=== PATIENT | female | born 1960 | race Caucasian/White ===

== ENCOUNTER 2018-08-25 18:07 | Emergency (ER) | payer MEDICARE, MEDICAID ==
[~2018-08-25] VITALS: Ht 157.5 cm; Wt 75.0 kg
[~2018-08-25 18:07] MED LIST: ARIP2TAB37 PO; ARIPIPRAZOLE TAB 5MG; BUSP5TAB3 PO; BUSPIRONE 10 MG; Buspirone Hcl 10mg Tab; CLON-528 PO; CLONAZEPAM TAB 0.5MG; DIVA125T2 PO; DIVALPROEX 500 MG; DULOXETINE 60 MG; DULOXETINE CAP 30MG; LEVE10002 PO; LEVE250T PO; LEVOTHYROXINE SODIUM 25 MCG; MIRT45TA83 PO; MIRTAZAPINE 15 MG; SERT50TA PO; SERTRALINE HCL 100 MG; THIA100T70 PO
[2018-08-25 19:19] VITALS: BP 119/60
== END 2018-08-25 19:33 | disposition home or self-care (01) ==
LOC: ER 18:07
DX: G40.909 Epilepsy, unspecified, not intractable, without status epilepticus (principal); Z88.8 Allergy status to other drugs, medicaments and biological substances; Z79.899 Other long term (current) drug therapy
CPT/HCPCS: 99283

== ENCOUNTER 2018-09-14 00:24 | Emergency (ER) | payer MEDICARE, MEDICAID ==
[~2018-09-14] VITALS: Ht 157.5 cm; Wt 65.0 kg
[2018-09-14] MEDS ORDERED: magnesium 2GM in 50ml NS 50 ML IV ONE (00:55)
[2018-09-14] MEDS ORDERED: normal saline 1000ML IV soln IVB ONE (00:55)
[2018-09-14 01:54] LABS: BASOPHILS # (AUTO) 0.1 X10'3 (0-0.2); BASOPHILS % (AUTO) 1.3 % (0-1); EOSINOPHILS % (AUTO) 0.5 % (0-6); HEMATOCRIT 41.8 % (35.0-45.0); LYMPHOCYTES # (AUTO) 1.6 X10'3 (1.1-4.8); LYMPHOCYTES % (AUTO) 22.7 % (21-51); MEAN CORPUSCULAR HEMOGLOBIN 32.6 PG (27.0-31.0); MEAN CORPUSCULAR HGB CONC 33.5 % (33.0-36.5); MEAN CORPUSCULAR VOLUME 97.3 FL (78-98); MEAN PLATELET VOLUME 8.3 FL (7.4-10.4); MONOCYTES # (AUTO) 0.9 X10'3 (0-0.9); MONOCYTES % (AUTO) 12.6 % (2-12); NEUTROPHILS # (AUTO) 4.2 X10'3 (1.8-7.7); NEUTROPHILS % (AUTO) 62.9 % (42-75); PLATELET COUNT 187 X10'3 (140-440); RED CELL DISTRIBUTION WIDTH 12.5 % (11.5-14.5); WHITE BLOOD COUNT 6.8 X10'3 (4.5-11.0)
[2018-09-14 02:02] LABS: INR 1.1 INR
[2018-09-14 02:03] LABS: PARTIAL THROMBOPLASTIN TIME 29 SECONDS (22-32)
[2018-09-14 02:05] LABS: ALANINE AMINOTRANSFERASE 22 U/L (12-78); ALBUMIN 3.3 G/DL (3.4-5.0); ALBUMIN/GLOBULIN RATIO 0.9 (1.1-1.5); ALKALINE PHOSPHATASE 67 IU/L (46-116); ANION GAP 7 (8-16); ASPARTATE AMINO TRANSFERASE 14 U/L (10-37); BILIRUBIN,TOTAL 0.2 MG/DL (0.1-1.0); BLOOD UREA NITROGEN 16 MG/DL (7-18); BUN/CREATININE RATIO 24.6 (6.6-38.0); CALCIUM 9.1 MG/DL (8.5-10.1); CHLORIDE 98 MMOL/L (99-107); CREATININE 0.65 MG/DL (0.40-0.90); GLUCOSE 95 MG/DL (70-104); POTASSIUM 4.4 MMOL/L (3.5-5.1); SODIUM 134 MMOL/L (135-145); TOTAL CARBON DIOXIDE 29.1 MMOL/L (24-32); TOTAL PROTEIN 6.9 G/DL (6.4-8.2); eGFR > 90 ML/MIN
[2018-09-14 02:13] LABS: MAGNESIUM 1.8 MG/DL (1.5-2.4)
[2018-09-14 02:16] LABS: CLARITY,URINE CLEAR (Clear); GLUCOSE, URINE NEGATIVE (Neg); KETONES,URINE NEGATIVE (Neg); LEUKOCYTE ESTERASE ,URINE NEGATIVE (Neg); NITRITES, URINE NEGATIVE (Neg); OCCULT BLOOD,URINE NEGATIVE (Neg); PROTEIN,URINE NEGATIVE (Neg); UROBILINOGEN,URINE 0.2 E.U/dL (0.2-1.0)
[2018-09-14 02:17] LABS: VALPROATE 55 UG/ML (50-100)
[2018-09-14 02:18] LABS: ETHANOL < 0.010 GM/DL (0.0-0.010)
[2018-09-14 02:23] LABS: COLOR,URINE STRAW (Yellow); UA COLLECTION TYPE STRAIGHT CATH
[2018-09-14 02:33] LABS: URINE AMPHETAMINE SCREEN NEGATIVE (Neg); URINE BARBITUATE SCREEN NEGATIVE (Neg); URINE BENZODIAZEPINES SCREEN NEGATIVE (Neg); URINE CANNABINOID SCREEN NEGATIVE (Neg); URINE COCAINE SCREEN NEGATIVE (Neg); URINE METHADONE SCREEN NEGATIVE (Neg); URINE OPIATE SCREEN NEGATIVE (Neg); URINE PHENCYCLIDINE SCREEN NEGATIVE (Neg)
[2018-09-14] MEDS ORDERED: divalproex sodium 250mg tablet PO ONE (02:35)
[2018-09-14] MEDS ORDERED: LORazepam 2 mg/ml vial IV ONE (02:45)
[2018-09-14] MEDS ORDERED: LORazepam 1 MG tablet PO ONE (03:05)
[2018-09-14 03:34] VITALS: BP 117/76
== END 2018-09-14 03:36 | disposition home or self-care (01) ==
LOC: ER 00:24
DX: G40.909 Epilepsy, unspecified, not intractable, without status epilepticus (principal); Z88.8 Allergy status to other drugs, medicaments and biological substances; Z79.899 Other long term (current) drug therapy
CPT/HCPCS: 36415; 80053; 80164; 80305; 80320; 81003; 83735; 84443; 85025; 85610; 85730; 93005; 96365; 96366; 99284; J2060; J3475; J7030; P9612

== ENCOUNTER 2018-12-06 12:39 | Inpatient (IN) | payer MEDICARE, MEDICAID | END 2018-12-09 16:30 | disposition home or self-care (01) | LOC: ED HOLD 20:53 → ORTHO 4S 12-08 18:30 → ER 12:39 → ED HOLD 19:06 → ORTHO 4S 20:53 → ED HOLD 20:53 → ORTHO 4S 19:06 → ED HOLD 19:43 → ORTHO 4S 20:53 | DX: G40.89 Other seizures (principal); F44.5 Conversion disorder with seizures or convulsions; F41.1 Generalized anxiety disorder; I42.9 Cardiomyopathy, unspecified; G93.41 Metabolic encephalopathy ==

== ENCOUNTER → 2018-12-28 | Emergency (ER) | payer MEDICARE, MEDICAID ==
[~2018-12-28] VITALS: Ht 167.6 cm; Wt 65.0 kg
[~2018-12-28] MED LIST changes: -ARIP2TAB37 PO; -ARIPIPRAZOLE TAB 5MG; +BUSP10TA11 PO; +BUSP10TA3 PO; -BUSP5TAB3 PO; -BUSPIRONE 10 MG; -Buspirone Hcl 10mg Tab; +CALC-1051 PO; -CLON-528 PO; -CLONAZEPAM TAB 0.5MG; +DIVA-76 PO; -DIVA125T2 PO; -DIVALPROEX 500 MG; +DULO60CA45 PO; +DULO60CA64 PO; -DULOXETINE 60 MG; -DULOXETINE CAP 30MG; +GABA-532 PO; +KEP500T PO; +LEVE10006 PO; -LEVE250T PO; +LEVO25TA2 PO; -LEVOTHYROXINE SODIUM 25 MCG; +LURA40TA3 PO; -MIRT45TA83 PO; -MIRTAZAPINE 15 MG; -SERT50TA PO; -SERTRALINE HCL 100 MG; +THIA100T66 PO; -THIA100T70 PO; +VILA20TA PO; +[UNRECOGNIZED DRUG - CODE] PO; +levetiracetam inj 1,000 MG in normal saline 100ml IV soln 90 ML IV ONE
[2018-12-28 20:20] LABS: BASOPHILS % (AUTO) 0.3 % (0-1); EOSINOPHILS % (AUTO) 0.1 % (0-6); HEMATOCRIT 38.5 % (35.0-45.0); HEMOGLOBIN 13.7 g/dl (12.0-16.0); LYMPHOCYTES # (AUTO) 1.1 X10'3 (1.1-4.8); LYMPHOCYTES % (AUTO) 13.1 % (21-51); MEAN CORPUSCULAR HEMOGLOBIN 33.6 PG (27.0-31.0); MEAN CORPUSCULAR HGB CONC 35.6 g/dL (33.0-36.5); MEAN CORPUSCULAR VOLUME 94.3 FL (78-98); MEAN PLATELET VOLUME 7.4 FL (7.4-10.4); MONOCYTES # (AUTO) 0.7 X10'3 (0-0.9); MONOCYTES % (AUTO) 8.8 % (2-12); NEUTROPHILS # (AUTO) 6.3 X10'3 (1.8-7.7); NEUTROPHILS % (AUTO) 77.7 % (42-75); PLATELET COUNT 281 X10'3 (140-440); RED BLOOD COUNT 4.08 X10'6 (4.20-5.60); RED CELL DISTRIBUTION WIDTH 12.7 % (11.5-14.5); WHITE BLOOD COUNT 8.1 X10'3 (4.5-11.0)
[2018-12-28 20:31] LABS: ALANINE AMINOTRANSFERASE 20 U/L (12-78); ALBUMIN 3.8 G/DL (3.4-5.0); ALBUMIN/GLOBULIN RATIO 1.1 (1.1-1.5); ALKALINE PHOSPHATASE 58 IU/L (46-116); ANION GAP 7 (8-16); ASPARTATE AMINO TRANSFERASE 14 U/L (10-37); BILIRUBIN,TOTAL 0.5 MG/DL (0.1-1.0); BLOOD UREA NITROGEN 7 MG/DL (7-18); CALCIUM 9.2 MG/DL (8.5-10.1); CHLORIDE 94 MMOL/L (99-107); GLUCOSE 101 MG/DL (70-104); POTASSIUM 4.1 MMOL/L (3.5-5.1); SODIUM 129 MMOL/L (135-145); TOTAL PROTEIN 7.2 G/DL (6.4-8.2); eGFR 87 ML/MIN
[2018-12-28 20:34] LABS: INR 1.1 INR; PROTHROMBIN TIME 10.9 SECONDS (9.0-12.0)
--- NOTE | 2018-12-28 21:04 | NUR ---
PTS PARTNER AND POA , ASHLEY FLOOD [phone], AT BEDSIDE AND IS HELPFUL WITH CARE. SHE WAS VERY UPSET THAT NOT ONE HAS BEEN IN THE ROOM FOR OVER 20 MIN AND SHE HAS NOT BEEN UPDATED ON HER STATUS BY RN OR MD. ALSO TAHT PT WAS INCONTINENT OF URINE. I UPDATED MD AND RN AND WAS IN TO CHANGE HER BEDDING. PLACED ON VS MONITOR AND VSS. KEPPRA IV PB STARTED.
[2018-12-28 21:09] VITALS: BP 133/86
--- NOTE | 2018-12-28 21:40 | NUR ---
CALLED PATIENT CONTACT [facility] DAMIANIE REMIGIO LEFT MESSAGE FOR TRANSPORTING PATIENT DUE TO BEING DC' READY AFTER DR. GAYTAN SPOKE WITH DR. VERA FLOOD ABOUT PATIENTS CURRENT CONDITION
--- NOTE | 2018-12-28 21:41 | NUR ---
ASHLEY FLOOD CONTACT # [phone] FOR TRANSPORT
--- NOTE | 2018-12-28 22:00 | NUR ---
DR. GAYTAN AT BEDSIDE EDUCATING PATIENTS "LIFE PARTNER." ON WHAT RISA FLOOD HAD TOLD THE ED DR. GAYTAN PATIENTS LIFE PARTNER VERBALIZED UNDERSTANDING UPON DISCHARGE FROM DR. GAYTAN
== END | disposition home or self-care (01) ==
LOC: ER 19:29
DX: G40.909 Epilepsy, unspecified, not intractable, without status epilepticus (principal); Z88.8 Allergy status to other drugs, medicaments and biological substances
CPT/HCPCS: 36415; 80053; 85025; 85610; 85730; 96365; 99284; J1953; J7030

== ENCOUNTER 2019-05-17 19:36 | Inpatient (IN) | payer MEDICARE, MEDICAID ==
[~2019-05-17] VITALS: Ht 172.7 cm; Wt 68.2 kg
[~2019-05-17 19:36] MED LIST changes: -BUSP10TA11 PO; -DIVA-76 PO; -DULO60CA45 PO; -DULO60CA64 PO; -KEP500T PO; -LEVE10002 PO; -levetiracetam inj 1,000 MG in normal saline 100ml IV soln 90 ML IV ONE
[2019-05-17] MEDS ORDERED: ondansetron/PF 4mg/2ml inj IV ONE (20:25)
[2019-05-17] MEDS ORDERED: magnesium 2GM in 50ml NS 50 ML IV ONE (20:25)
[2019-05-17] MEDS ORDERED: LORazepam 2 mg/ml vial IV ONE (20:25)
[2019-05-17] MEDS ORDERED: normal saline 1000ML IV soln IVB ONE (20:25)
[2019-05-17 20:29] LABS: CLARITY,URINE CLEAR (Clear); COLOR,URINE STRAW (Yellow); GLUCOSE, URINE NEGATIVE (Neg); KETONES,URINE 15 mg/dl (Neg); LEUKOCYTE ESTERASE ,URINE NEGATIVE (Neg); NITRITES, URINE NEGATIVE (Neg); OCCULT BLOOD,URINE TRACE-INTACT (Neg); PROTEIN,URINE NEGATIVE (Neg); UROBILINOGEN,URINE 0.2 E.U/dL (0.2-1.0)
[2019-05-17 20:36] LABS: UA COLLECTION TYPE CLN CATCH MIDSTREAM
[2019-05-17 20:45] LABS: ALANINE AMINOTRANSFERASE 17 U/L (12-78); ALBUMIN 4.1 G/DL (3.4-5.0); ALBUMIN/GLOBULIN RATIO 1.2 (1.1-1.5); ALKALINE PHOSPHATASE 79 IU/L (46-116); ANION GAP 9 (8-16); ASPARTATE AMINO TRANSFERASE 12 U/L (10-37); BILIRUBIN,TOTAL 0.5 MG/DL (0.1-1.0); BLOOD UREA NITROGEN 6 MG/DL (7-18); BUN/CREATININE RATIO 9.8 (6.6-38.0); CALCIUM 9.6 MG/DL (8.5-10.1); CHLORIDE 92 MMOL/L (99-107); CREATININE 0.61 MG/DL (0.40-0.90); GLUCOSE 92 MG/DL (70-104); POTASSIUM 3.7 MMOL/L (3.5-5.1); SODIUM 127 MMOL/L (135-145); TOTAL CARBON DIOXIDE 25.9 MMOL/L (24-32); TOTAL PROTEIN 7.5 G/DL (6.4-8.2); eGFR > 90 ML/MIN
[2019-05-17 20:48] LABS: TROPONIN I < 0.04 NG/ML (0.0-0.05)
[2019-05-17 20:50] LABS: PARTIAL THROMBOPLASTIN TIME 25 SECONDS (22-32)
[2019-05-17 20:52] LABS: BACTERIA,URINE NONE SEEN /HPF (Neg); RBC,URINE 0-2 /HPF (0-2); SQUAMOUS EPITHELIAL CELL,UR NONE SEEN /LPF (FEW); WBC,URINE NONE SEEN /HPF (0-4)
[2019-05-17 21:04] LABS: MONOCYTES # (AUTO) 0.5 X10'3 (0-0.9); MONOCYTES % (AUTO) 6.4 % (2-12); NEUTROPHILS # (AUTO) 6.5 X10'3 (1.8-7.7); WHITE BLOOD COUNT 8.2 X10'3 (4.5-11.0)
[2019-05-17 21:06] LABS: BASOPHILS # (AUTO) 0.1 X10'3 (0-0.2); BASOPHILS % (AUTO) 0.6 % (0-1); EOSINOPHILS % (AUTO) 0.2 % (0-6); HEMATOCRIT 43.1 % (35.0-45.0); HEMOGLOBIN 14.9 g/dl (12.0-16.0); LYMPHOCYTES # (AUTO) 1.1 X10'3 (1.1-4.8); LYMPHOCYTES % (AUTO) 13.3 % (21-51); MEAN CORPUSCULAR HGB CONC 34.5 g/dL (33.0-36.5); NEUTROPHILS % (AUTO) 79.5 % (42-75); RED BLOOD COUNT 4.79 X10'6 (4.20-5.60); RED CELL DISTRIBUTION WIDTH 12.7 % (11.5-14.5)
[2019-05-17] MEDS ORDERED: levetiracetam inj 1,000 MG in normal saline 100ml IV soln 90 ML IV STA (21:11)
[2019-05-17] MEDS ORDERED: levetiracetam-NS 1000mg/100ml 100 ML IV STA (21:16)
--- NOTE | 2019-05-17 21:45 | NUR ---
ASSISTED PT TO BEDSIDE COMMODE. JOSEFA CARE GIVEN AND PT ASSISTED BACK TO BED.
[2019-05-17 21:59] LABS: HEMATOCRIT 39.7 % (35.0-45.0); HEMOGLOBIN 13.8 g/dl (12.0-16.0); MEAN CORPUSCULAR HEMOGLOBIN 31.1 PG (27.0-31.0); MEAN CORPUSCULAR HGB CONC 34.7 g/dL (33.0-36.5); MEAN CORPUSCULAR VOLUME 89.5 FL (78-98); MEAN PLATELET VOLUME 6.7 FL (7.4-10.4); PLATELET COUNT 325 X10'3 (140-440); RED BLOOD COUNT 4.44 X10'6 (4.20-5.60); RED CELL DISTRIBUTION WIDTH 12.5 % (11.5-14.5); WHITE BLOOD COUNT 7.7 X10'3 (4.5-11.0)
[2019-05-17] MEDS ORDERED: normal saline 1000ml 1,000 ML IV ONE (22:00)
[2019-05-17] MEDS ORDERED: magnesium 4gm in 100ml NS 100 ML IV PRN (22:00)
[2019-05-17] MEDS ORDERED: mag hydrox/Alum hydrox/simeth 30ml oral suspension PO PRN (22:00)
[2019-05-17] MEDS ORDERED: ondansetron/PF 4mg/2ml inj IV PRN (22:00)
[2019-05-17] MEDS ORDERED: potassium Cl 20 mEq SR tablet PO PRN ×2 (22:00)
[2019-05-17] MEDS ORDERED: magnesium hydroxide 30ml (MOM) UD suspension PO PRN (22:00)
[2019-05-17] MEDS ORDERED: acetaminophen 325mg tablet PO PRN ×2 (22:00)
[2019-05-17] MEDS ORDERED: magnesium Cl slow-release 64mg tablet PO PRN (22:00)
[2019-05-17] MEDS ORDERED: potassium CL 10mEq/100ml bag 100 ML IV PRN ×2 (22:00)
[2019-05-17] MEDS ORDERED: magnesium 2GM in 50ml NS 50 ML IV PRN (22:00)
--- NOTE | 2019-05-17 22:01 | NUR ---
PT IS NOW AOX3. PT IS ABLE TO STATE NAME, BIRTHDAY, IS IN [facility] [facility]", CANNOT STATE PRESIDENT OR DATE. IS ABLE TO STATE SHE IS HERE "BECAUSE OF MY SEIZURES."
--- NOTE | 2019-05-17 22:08 | NUR ---
ASSISTED PT TO BEDSIDE COMMODE. JOSEFA CARE GIVEN AND PT ASSISTED BACK TO BED.
[2019-05-17] MEDS ORDERED: LORazepam 2 mg/ml vial IM PRN (22:15)
--- NOTE | 2019-05-17 22:30 | NUR ---
ASSISTED PT TO BEDSIDE COMMODE. JOSEFA CARE GIVEN AND PT ASSISTED BACK TO BED.
[2019-05-17 23:59] VITALS: BP 121/70
[2019-05-18 05:48] LABS: BASOPHILS % (AUTO) 0.5 % (0-1); EOSINOPHILS # (AUTO) 0.1 X10'3 (0-0.9); HEMATOCRIT 43.9 % (35.0-45.0); HEMOGLOBIN 15.1 g/dl (12.0-16.0); LYMPHOCYTES # (AUTO) 2.1 X10'3 (1.1-4.8); LYMPHOCYTES % (AUTO) 28.2 % (21-51); MEAN CORPUSCULAR HEMOGLOBIN 31.2 PG (27.0-31.0); MEAN CORPUSCULAR HGB CONC 34.5 g/dL (33.0-36.5); MEAN CORPUSCULAR VOLUME 90.4 FL (78-98); MEAN PLATELET VOLUME 6.8 FL (7.4-10.4); MONOCYTES # (AUTO) 0.9 X10'3 (0-0.9); MONOCYTES % (AUTO) 12.9 % (2-12); NEUTROPHILS # (AUTO) 4.2 X10'3 (1.8-7.7); NEUTROPHILS % (AUTO) 57.4 % (42-75); PLATELET COUNT 338 X10'3 (140-440); RED BLOOD COUNT 4.86 X10'6 (4.20-5.60); RED CELL DISTRIBUTION WIDTH 12.9 % (11.5-14.5); WHITE BLOOD COUNT 7.3 X10'3 (4.5-11.0)
--- NOTE | 2019-05-18 06:18 | NUR ---
Problems reprioritized. Patient report given, questions answered & plan of care reviewed with VINCENT SIMON.
[2019-05-18 06:20] LABS: ALBUMIN 3.8 G/DL (3.4-5.0); ANION GAP 7 (8-16); BLOOD UREA NITROGEN 6 MG/DL (7-18); BUN/CREATININE RATIO 8.6 (6.6-38.0); CALCIUM 8.9 MG/DL (8.5-10.1); CHLORIDE 106 MMOL/L (99-107); GLUCOSE 78 MG/DL (70-104); MAGNESIUM 2.4 MG/DL (1.5-2.4); SODIUM 138 MMOL/L (135-145); TOTAL CARBON DIOXIDE 25.1 MMOL/L (24-32); eGFR 86 ML/MIN
[2019-05-18 06:22] LABS: POTASSIUM 4.3 MMOL/L (3.5-5.1)
[2019-05-18 06:48] VITALS: BP 107/72
--- NOTE | 2019-05-18 07:03 | NUR ---
I have received patient report from Linda KAUR
[2019-05-18 07:27] VITALS: BP 169/70
[2019-05-18] MEDS: levoTHYROXINE 25mcg tablet PO SCH (07:40)
[2019-05-18] MEDS: levetiracetam 250mg tablet PO SCH ×2 (07:40→19:36)
[2019-05-18] MEDS: thiamine 100mg tablet PO SCH (07:41)
[2019-05-18] MEDS: calcium carbonate/vitamin D3 tablet PO SCH (07:41)
[2019-05-18] MEDS: enoxaparin 30mg/0.3ml syringe SQ SCH ×2 (07:43→19:38)
[2019-05-18] MEDS: K and/or MAG REPLACEMENT MC SCH (08:00)
[2019-05-18] MEDS ORDERED: lurasidone 20mg tablet PO SCH (08:00)
[2019-05-18] MEDS ORDERED: busPIRone 5mg tablet PO SCH (08:00)
[2019-05-18 10:00] VITALS: BP 112/50
[2019-05-18] MEDS ORDERED: nicotine 7mg patch - 24hr TD ONE (12:00)
[2019-05-18] MEDS ORDERED: LACO100T2 PO ×2 (15:04→15:06)
[2019-05-18] MEDS: clonazePAM 1mg tablet PO SCH ×2 (16:02→19:36)
[2019-05-18 18:00] VITALS: BP 106/65
--- NOTE | 2019-05-18 18:19 | NUR ---
Patient report given to Deysi KAUR
--- NOTE | 2019-05-18 18:20 | NUR ---
Patient in room ORTHO 4009. I have received report from VINCENT Yancey and had the opportunity to ask questions and assume patient care.
[2019-05-18] MEDS: busPIRone 15mg tablet PO SCH (19:37)
[2019-05-18] MEDS ORDERED: gabapentin 300mg capsule PO SCH (21:00)
[2019-05-18 22:00] VITALS: BP 104/56
[2019-05-19 06:10] VITALS: BP 112/63
--- NOTE | 2019-05-19 06:30 | NUR ---
I have received patient report from Deysi KAUR
--- NOTE | 2019-05-19 06:31 | NUR ---
Problems reprioritized. Patient report given, questions answered & plan of care reviewed with VINCENT Yancey.
[2019-05-19 06:37] LABS: BASOPHILS # (AUTO) 0.1 X10'3 (0-0.2); EOSINOPHILS # (AUTO) 0.1 X10'3 (0-0.9); EOSINOPHILS % (AUTO) 1.7 % (0-6); HEMATOCRIT 42.1 % (35.0-45.0); HEMOGLOBIN 14.1 g/dl (12.0-16.0); LYMPHOCYTES % (AUTO) 34.7 % (21-51); MEAN CORPUSCULAR HEMOGLOBIN 30.8 PG (27.0-31.0); MEAN CORPUSCULAR HGB CONC 33.6 g/dL (33.0-36.5); MEAN CORPUSCULAR VOLUME 91.7 FL (78-98); MEAN PLATELET VOLUME 7.3 FL (7.4-10.4); MONOCYTES # (AUTO) 0.7 X10'3 (0-0.9); MONOCYTES % (AUTO) 12.1 % (2-12); NEUTROPHILS # (AUTO) 2.8 X10'3 (1.8-7.7); NEUTROPHILS % (AUTO) 50.5 % (42-75); PLATELET COUNT 336 X10'3 (140-440); RED BLOOD COUNT 4.59 X10'6 (4.20-5.60); RED CELL DISTRIBUTION WIDTH 12.9 % (11.5-14.5); WHITE BLOOD COUNT 5.7 X10'3 (4.5-11.0)
[2019-05-19 06:51] LABS: ALBUMIN 3.4 G/DL (3.4-5.0); ANION GAP 5 (8-16); BLOOD UREA NITROGEN 9 MG/DL (7-18); BUN/CREATININE RATIO 11.7 (6.6-38.0); CALCIUM 9.1 MG/DL (8.5-10.1); CHLORIDE 105 MMOL/L (99-107); CREATININE 0.77 MG/DL (0.40-0.90); GLUCOSE 91 MG/DL (70-104); MAGNESIUM 2.1 MG/DL (1.5-2.4); POTASSIUM 4.3 MMOL/L (3.5-5.1); SODIUM 140 MMOL/L (135-145); TOTAL CARBON DIOXIDE 29.8 MMOL/L (24-32); eGFR 77 ML/MIN
[2019-05-19] MEDS: calcium carbonate/vitamin D3 tablet PO SCH (07:17)
[2019-05-19] MEDS: levetiracetam 250mg tablet PO SCH (07:17)
[2019-05-19] MEDS: clonazePAM 1mg tablet PO SCH (07:17)
[2019-05-19] MEDS: thiamine 100mg tablet PO SCH (07:17)
[2019-05-19] MEDS: enoxaparin 30mg/0.3ml syringe SQ SCH (07:18)
[2019-05-19] MEDS: levoTHYROXINE 25mcg tablet PO SCH (07:18)
[2019-05-19] MEDS: busPIRone 15mg tablet PO SCH (07:19)
[2019-05-19] MEDS ORDERED: nicotine 7mg patch - 24hr TD SCH (08:00)
[2019-05-19] MEDS: K and/or MAG REPLACEMENT MC SCH (08:00)
[2019-05-19] MEDS ORDERED: lurasidone 20mg tablet PO SCH (08:00)
[2019-05-19 10:00] VITALS: BP 138/79
[2019-05-19] MEDS ORDERED: CLON1TAB12 PO (11:55)
[2019-05-19] MEDS ORDERED: NICO-630 TD (11:55)
[2019-05-19] MEDS ORDERED: LURA20TA PO (11:55)
[2019-05-19] MEDS ORDERED: BUS15T PO (11:55)
--- NOTE | 2019-05-19 15:00 | NUR ---
Patient medications were delivered at bedside. Patient and spouse instructed to follow up with pcp and psych md.
== END 2019-05-19 15:00 | disposition home or self-care (01) | DRG 880 ==
LOC: ER 19:36 → ORTHO 4S 23:13 → CMPBEDREQ 05-18 00:36
PROVIDERS: ADMIT Hospitalist; ATTEND Family Medicine
DX: F44.5 Conversion disorder with seizures or convulsions (principal); E87.1 Hypo-osmolality and hyponatremia; E03.9 Hypothyroidism, unspecified; F32.9 Major depressive disorder, single episode, unspecified; F41.1 Generalized anxiety disorder; Z87.01 Personal history of pneumonia (recurrent); Z88.8 Allergy status to other drugs, medicaments and biological substances; Z79.899 Other long term (current) drug therapy; Z72.0 Tobacco use
CPT/HCPCS: 36415; 70450; 71045; 80048; 80053; 81001; 83735; 84443; 84484; 85025; 85027; 85610; 85730; 87081; 93005; 96361; 96365; 96375; 97110; 97116; 97161; 97530; 99285; G0378; J1650; J1953; J2060; J2405; J3475

== ENCOUNTER 2019-06-30 12:17 | Inpatient (IN) | payer MEDICARE, MEDICAID ==
[~2019-06-30] VITALS: Ht 167.6 cm; Wt 70.5 kg
[~2019-06-30 12:17] MED LIST changes: +BUS15T PO; -BUSP10TA3 PO; +CLON1TAB12 PO; +LACO100T2 PO; +LURA20TA PO; -LURA40TA3 PO; +NICO-630 TD; -[UNRECOGNIZED DRUG - CODE] PO
[2019-06-30] MEDS ORDERED: LORazepam 2 mg/ml vial IV ONE ×2 (12:35→15:25)
[2019-06-30] MEDS ORDERED: haloperidol lactate 5mg/ml inj IM ONE (12:45)
[2019-06-30] MEDS ORDERED: diphenhydrAMINE 50 mg/ml inj IV ONE ×2 (12:45→15:25)
--- NOTE | 2019-06-30 12:56 | NUR ---
chio, #[phone] hearing impaired call twice
[2019-06-30 13:10] LABS: CLARITY,URINE CLEAR (Clear); COLOR,URINE STRAW (Yellow); GLUCOSE, URINE 100 mg/dl (Neg); KETONES,URINE 15 mg/dl (Neg); LEUKOCYTE ESTERASE ,URINE NEGATIVE (Neg); NITRITES, URINE NEGATIVE (Neg); OCCULT BLOOD,URINE SMALL (Neg); PH,URINE 5.5 (4.8-8.0); PROTEIN,URINE TRACE mg/dl (Neg); UROBILINOGEN,URINE 0.2 E.U/dL (0.2-1.0)
[2019-06-30 13:14] LABS: UA COLLECTION TYPE STRAIGHT CATH
[2019-06-30 13:16] LABS: MUCUS STRANDS FEW /LPF (Neg); SQUAMOUS EPITHELIAL CELL,UR FEW /LPF (FEW); TRANSITIONAL EPI CELLS,URINE FEW /HPF
[2019-06-30 13:17] LABS: BACTERIA,URINE 1+ /HPF (Neg); RBC,URINE 0-2 /HPF (0-2); WBC,URINE 0-4 /HPF (0-4)
[2019-06-30] MEDS: levetiracetam-NS 1000mg/100ml 100 ML IV SCH ×2 (13:26→21:11)
[2019-06-30 13:29] LABS: URINE AMPHETAMINE SCREEN NEGATIVE (Neg); URINE BARBITUATE SCREEN NEGATIVE (Neg); URINE BENZODIAZEPINES SCREEN POSITIVE (Neg); URINE CANNABINOID SCREEN NEGATIVE (Neg); URINE COCAINE SCREEN NEGATIVE (Neg); URINE METHADONE SCREEN NEGATIVE (Neg); URINE OPIATE SCREEN NEGATIVE (Neg); URINE PHENCYCLIDINE SCREEN NEGATIVE (Neg)
[2019-06-30 13:38] LABS: BASOPHILS % (AUTO) 0.2 % (0-1); EOSINOPHILS % (AUTO) 0 % (0-6); HEMATOCRIT 38.2 % (35.0-45.0); HEMOGLOBIN 13.3 g/dl (12.0-16.0); LYMPHOCYTES # (AUTO) 0.6 X10'3 (1.1-4.8); LYMPHOCYTES % (AUTO) 6.8 % (21-51); MEAN CORPUSCULAR HGB CONC 34.8 g/dL (33.0-36.5); MEAN CORPUSCULAR VOLUME 89.1 FL (78-98); MONOCYTES # (AUTO) 0.5 X10'3 (0-0.9); MONOCYTES % (AUTO) 6.2 % (2-12); NEUTROPHILS # (AUTO) 7.4 X10'3 (1.8-7.7); NEUTROPHILS % (AUTO) 86.8 % (42-75); PLATELET COUNT 281 X10'3 (140-440); RED BLOOD COUNT 4.29 X10'6 (4.20-5.60); RED CELL DISTRIBUTION WIDTH 12.9 % (11.5-14.5); WHITE BLOOD COUNT 8.5 X10'3 (4.5-11.0)
[2019-06-30] MEDS ORDERED: normal saline 1000ML IV soln IVB ONE ×2 (13:40→16:20)
[2019-06-30 13:51] LABS: PARTIAL THROMBOPLASTIN TIME 27 SECONDS (22-32)
[2019-06-30 13:52] LABS: ALANINE AMINOTRANSFERASE 20 U/L (12-78); ALBUMIN 3.7 G/DL (3.4-5.0); ALKALINE PHOSPHATASE 79 IU/L (46-116); ANION GAP 13 (8-16); ASPARTATE AMINO TRANSFERASE 21 U/L (10-37); BILIRUBIN,TOTAL 0.4 MG/DL (0.1-1.0); BLOOD UREA NITROGEN 4 MG/DL (7-18); BUN/CREATININE RATIO 5.1 (6.6-38.0); CALCIUM 8.7 MG/DL (8.5-10.1); CHLORIDE 85 MMOL/L (99-107); CREATININE 0.78 MG/DL (0.40-0.90); ETHANOL < 0.010 GM/DL (0.0-0.010); GLUCOSE 102 MG/DL (70-104); POTASSIUM 3.5 MMOL/L (3.5-5.1); SODIUM 121 MMOL/L (135-145); TOTAL PROTEIN 7.4 G/DL (6.4-8.2); eGFR 76 ML/MIN
--- NOTE | 2019-06-30 15:29 | NUR ---
PT ASHLEY CALLED, UPDATED.
[2019-06-30] MEDS: normal saline 1000ml 1,000 ML IV SCH ×2 (16:08→21:10)
[2019-06-30] MEDS ORDERED: HYDROcodone/acetaminophen 10/325mg tab PO PRN (16:10)
[2019-06-30] MEDS ORDERED: magnesium hydroxide 30ml (MOM) UD suspension PO PRN (16:10)
[2019-06-30] MEDS ORDERED: potassium CL 10mEq/100ml bag 100 ML IV PRN ×2 (16:10)
[2019-06-30] MEDS ORDERED: magnesium Cl slow-release 64mg tablet PO PRN (16:10)
[2019-06-30] MEDS ORDERED: HYDROcodone/acetaminophen 5mg/325mg tablet PO PRN (16:10)
[2019-06-30] MEDS ORDERED: bisacodyl 10mg suppository rectal RC PRN (16:10)
[2019-06-30] MEDS ORDERED: magnesium 2GM in 50ml NS 50 ML IV PRN (16:10)
[2019-06-30] MEDS ORDERED: acetaminophen 325mg tablet PO PRN ×2 (16:10)
[2019-06-30] MEDS ORDERED: potassium Cl 20 mEq SR tablet PO PRN (16:10)
[2019-06-30] MEDS ORDERED: ondansetron/PF 4mg/2ml inj IV PRN (16:10)
[2019-06-30] MEDS ORDERED: mag hydrox/Alum hydrox/simeth 30ml oral suspension PO PRN (16:10)
[2019-06-30] MEDS ORDERED: LORazepam 2 mg/ml vial IV PRN ×2 (16:10→18:25)
[2019-06-30] MEDS ORDERED: magnesium 4gm in 100ml NS 100 ML IV PRN (16:10)
[2019-06-30] MEDS ORDERED: metoclopramide 5 mg/ml inj IV PRN (16:10)
--- NOTE | 2019-06-30 17:38 | NUR ---
I have received patient report from Smita KAUR
[2019-06-30 18:20] VITALS: BP 143/66
[2019-06-30] MEDS ORDERED: QUET25TA34 PO (18:22)
[2019-06-30] MEDS ORDERED: LURA60TA2 PO (18:22)
[2019-06-30] MEDS ORDERED: CLON-514 PO (18:22)
[2019-06-30] MEDS ORDERED: BUSP15TA3 PO (18:23)
--- NOTE | 2019-06-30 18:39 | NUR ---
Patient report given to Viviane KAUR
[2019-06-30] MEDS ORDERED: clonazePAM 1mg tablet PO SCH (20:00)
[2019-06-30] MEDS ORDERED: temazepam 15mg capsule PO PRN (21:00)
[2019-06-30] MEDS: fludrocortisone acetate 0.1mg tablet PO SCH (21:10)
[2019-06-30] MEDS: clonazePAM 1mg tablet PO SCH (21:10)
--- NOTE | 2019-06-30 21:16 | NUR ---
Pt able to say yes and no, okay and follow directions. gave sip of water with no distress. able to take oral meds. declined applesauce. unable to give me her date of .
[2019-06-30 21:21] VITALS: BP 119/57
--- NOTE | 2019-06-30 22:30 | NUR ---
pt's Kris Tao is coming to visit [phone]
[2019-07-01] VITALS (7 sets, daily range): BP systolic 91–160; BP diastolic 53–81
--- NOTE | 2019-07-01 06:30 | NUR ---
reported to days. noted sitter for safety. pt still resting w/o distress.
--- NOTE | 2019-07-01 06:32 | NUR ---
Kris Dinh has hearing aides and takes them out when sleeping. will not be able to hear phone if sleeping.
[2019-07-01 06:42] LABS: HEMATOCRIT 36.2 % (35.0-45.0); HEMOGLOBIN 12.7 g/dl (12.0-16.0); MEAN CORPUSCULAR HEMOGLOBIN 31.4 PG (27.0-31.0); MEAN CORPUSCULAR HGB CONC 35.1 g/dL (33.0-36.5); MEAN CORPUSCULAR VOLUME 89.5 FL (78-98); MEAN PLATELET VOLUME 7.4 FL (7.4-10.4); PLATELET COUNT 315 X10'3 (140-440); RED BLOOD COUNT 4.04 X10'6 (4.20-5.60); RED CELL DISTRIBUTION WIDTH 12.9 % (11.5-14.5); WHITE BLOOD COUNT 8.7 X10'3 (4.5-11.0)
--- NOTE | 2019-07-01 06:44 | NUR ---
Patient in room ORTHO 4022. I have received report from Deny KAUR and had the opportunity to ask questions and assume patient care.
[2019-07-01 06:46] LABS: ALANINE AMINOTRANSFERASE 21 U/L (12-78); ALBUMIN 3.2 G/DL (3.4-5.0); ALKALINE PHOSPHATASE 69 IU/L (46-116); ANION GAP 9 (8-16); ASPARTATE AMINO TRANSFERASE 28 U/L (10-37); BILIRUBIN,TOTAL 0.6 MG/DL (0.1-1.0); BLOOD UREA NITROGEN 3 MG/DL (7-18); BUN/CREATININE RATIO 4.8 (6.6-38.0); CALCIUM 8.2 MG/DL (8.5-10.1); CHLORIDE 102 MMOL/L (99-107); CREATININE 0.62 MG/DL (0.40-0.90); GLUCOSE 84 MG/DL (70-104); PHOSPHORUS 2.4 MG/DL (2.3-4.5); POTASSIUM 3.2 MMOL/L (3.5-5.1); SODIUM 136 MMOL/L (135-145); TOTAL CARBON DIOXIDE 24.9 MMOL/L (24-32); TOTAL PROTEIN 6.3 G/DL (6.4-8.2); eGFR > 90 ML/MIN
[2019-07-01] MEDS: K and/or MAG REPLACEMENT MC SCH (07:00)
[2019-07-01] MEDS: normal saline 1000ml 1,000 ML IV SCH (08:03)
[2019-07-01] MEDS: clonazePAM 1mg tablet PO SCH ×2 (08:04→21:01)
[2019-07-01] MEDS: enoxaparin 40mg/0.4ml syringe SUBCUT SCH (08:04)
[2019-07-01] MEDS: levetiracetam-NS 1000mg/100ml 100 ML IV SCH (08:04)
[2019-07-01] MEDS: fludrocortisone acetate 0.1mg tablet PO SCH (08:05)
[2019-07-01] MEDS: potassium Cl 20 mEq SR tablet PO PRN ×3 (10:39→21:01)
--- NOTE | 2019-07-01 16:30 | NUR ---
patient HR staying in the 200's for 20 min now, Ativan given and patient sates shes feeling ok and less anxious after Ativan given thank you Orion [phone]
--- NOTE | 2019-07-01 16:30 | NUR ---
paged hospitalist patient HR staying in the 200's for 20 min now, Ativan given and patient sates shes feeling ok and less anxious after Ativan given, will continue to monitor
[2019-07-01] MEDS ORDERED: amiodarone 150mg/dext, iso-os 100 ML IV ONE (17:30)
[2019-07-01] MEDS ORDERED: amiodarone/D5 360MG/200ML BAG 200 ML IV SCH (17:30)
--- NOTE | 2019-07-01 17:31 | NUR ---
adenosine given by ICU nurse at bed side, at bedside aswell as tele charge, patient handled well, will continue to monitor, will be transferred to Tele floor
[2019-07-01] MEDS ORDERED: diltiazem-NS 100mg/100ml 100 ML IV SCH (17:45)
[2019-07-01] MEDS ORDERED: diltiazem 5mg/ml 5ml inj. IV ONE (17:45)
--- NOTE | 2019-07-01 18:00 | NUR ---
Pt received from ortho neuro in SVT with rate 210 bpm. Cardizem 15 mg IVP given. Pt now ST in the 100's. Placed on mobile 68. Waiting on pharmacy to make cardizem gtt.
--- NOTE | 2019-07-01 18:00 | NUR ---
Patient transfered to 3185L report given to Zee KAUR
--- NOTE | 2019-07-01 18:08 | NUR ---
Problems reprioritized. Patient report given, questions answered & plan of care reviewed with Corry.
--- NOTE | 2019-07-01 18:10 | NUR ---
Cardizem drip initiated per primary RN request. Pt tolerated. Bedside monitoring in place per protocol, VS stable. Pt on bedrest at this time per primary RN, wick placed for patient comfort and skin protection. Call light in reach. Bed is low/locked.
--- NOTE | 2019-07-01 18:20 | NUR ---
Patient in room PCU 3017. I have received report from Jaylyn KAUR and had the opportunity to ask questions and assume patient care. Patient has just arrived to room 3017, bedside monitoring active. Cardizem drip running at 10mL/hr. She is comfortable, will continue to monitor closely.
--- NOTE | 2019-07-01 19:00 | NUR ---
PAGER ID: [phone] MESSAGE: Corry YOUSIF Luluabisai Earl [phone]. Saw your note about Lopressor 5mg IV Q5 min. if Cardizem is refractory but it is not ordered. Thanks
[2019-07-02] VITALS (8 sets, daily range): BP systolic 102–140; BP diastolic 53–78
[2019-07-02] MEDS: normal saline 1000ml 1,000 ML IV SCH ×2 (01:30→08:08)
--- NOTE | 2019-07-02 01:35 | NUR ---
Patient's BP has dropped to 80/42 (51), stopped Cardizem drip. Informed Dr. Sanders, will give patient fluid bolus - 250mL NS.
--- NOTE | 2019-07-02 06:22 | NUR ---
Problems reprioritized. Patient report given, questions answered & plan of care reviewed with Laura KAUR and Tami KAUR.
--- NOTE | 2019-07-02 06:38 | NUR ---
Patient in room [facility] 3017. I have received report from VINCENT Roque and had the opportunity to ask questions and assume patient care. Addendum: 07/02/19 at 0646 by Tami Ornelas RN Recieved report from VINCENT Wheatley
[2019-07-02 06:43] LABS: HEMATOCRIT 34.9 % (35.0-45.0); HEMOGLOBIN 12.2 g/dl (12.0-16.0); MEAN CORPUSCULAR HEMOGLOBIN 31.7 PG (27.0-31.0); MEAN CORPUSCULAR HGB CONC 35.1 g/dL (33.0-36.5); MEAN CORPUSCULAR VOLUME 90.4 FL (78-98); PLATELET COUNT 286 X10'3 (140-440); RED BLOOD COUNT 3.86 X10'6 (4.20-5.60); RED CELL DISTRIBUTION WIDTH 13.4 % (11.5-14.5); WHITE BLOOD COUNT 7.7 X10'3 (4.5-11.0)
[2019-07-02 07:03] LABS: ALANINE AMINOTRANSFERASE 19 U/L (12-78); ALBUMIN 2.8 G/DL (3.4-5.0); ALKALINE PHOSPHATASE 58 IU/L (46-116); ANION GAP 7 (8-16); ASPARTATE AMINO TRANSFERASE 25 U/L (10-37); BILIRUBIN,TOTAL 0.4 MG/DL (0.1-1.0); BLOOD UREA NITROGEN 7 MG/DL (7-18); BUN/CREATININE RATIO 12.5 (6.6-38.0); CALCIUM 8.4 MG/DL (8.5-10.1); CHLORIDE 108 MMOL/L (99-107); CREATININE 0.56 MG/DL (0.40-0.90); GLUCOSE 84 MG/DL (70-104); MAGNESIUM 1.9 MG/DL (1.5-2.4); PHOSPHORUS 2.1 MG/DL (2.3-4.5); POTASSIUM 3.7 MMOL/L (3.5-5.1); SODIUM 140 MMOL/L (135-145); TOTAL CARBON DIOXIDE 25.3 MMOL/L (24-32); TOTAL PROTEIN 5.7 G/DL (6.4-8.2); eGFR > 90 ML/MIN
--- NOTE | 2019-07-02 08:44 | NUR ---
Paged Dr. Guerra regarding an order of PO Cardizem PAGER ID: [phone] MESSAGE: [phone] - Earl: FYI. Pt BP decreased overnight, Cardizem drip stopped and given a NS bolus. Would you like PO Cardizem order? BP 127/54, HR in 70s, SR. Kindly advise! - Tami [phone]
[2019-07-02] MEDS: fludrocortisone acetate 0.1mg tablet PO SCH (08:52)
[2019-07-02] MEDS: clonazePAM 1mg tablet PO SCH ×2 (08:52→20:48)
[2019-07-02] MEDS: enoxaparin 40mg/0.4ml syringe SUBCUT SCH (08:52)
[2019-07-02] MEDS: K and/or MAG REPLACEMENT MC SCH (08:53)
[2019-07-02] MEDS ORDERED: FLU VACC QS2019-20 36MOS UP/PF 60 MCG/0.5 ML SYRINGE IMVAC ONE (10:00)
--- NOTE | 2019-07-02 11:39 | NUR ---
Spoke to Dr. Guerra. and placed pt on carvedilol 3.125mg. Verbal orders to place pt on a heart healthy diet.
[2019-07-02] MEDS: carVEDilol 3.125mg tablet PO SCH ×2 (14:39→20:48)
--- NOTE | 2019-07-02 17:04 | NUR ---
Paged Nepo regarding patients' regarding status. PAGER ID: [phone] MESSAGE: [phone] - Earl: Pts is in room and would like to speak to you regarding pt's status. Thanks! -VINCENT Garrett
--- NOTE | 2019-07-02 17:40 | NUR ---
PAGER ID: [phone] MESSAGE: jL froyMady. Would you please clarify if the patient is to be NPO after midnight. Thank you Laura [phone]
--- NOTE | 2019-07-02 18:07 | NUR ---
Orientee documentation: I have reviewed and agree with interventions, assessments performed and documented by Tami KAUR. [place] Medication Administration: For this medication-pass time frame, medication were reviewed, dispensed, administered and documented per hospital policy by Tami KAUR .
--- NOTE | 2019-07-02 18:09 | NUR ---
Problems reprioritized. Patient report given, questions answered & plan of care reviewed with Sammi KAUR. Patient stable at transfer of care.
--- NOTE | 2019-07-02 18:20 | NUR ---
Patient in room PCU 3017. I have received report from Laura KAUR and Tami KAUR and had the opportunity to ask questions and assume patient care.
[2019-07-03] VITALS: BP 126/58
[2019-07-03 02:00] VITALS: BP 132/66
[2019-07-03 04:00] VITALS: BP 131/57
[2019-07-03 06:00] VITALS: BP_SYST 116; BP_SYST 131; BP_DIAS 59; BP_DIAS 67
[2019-07-03 06:23] LABS: HEMATOCRIT 37.5 % (35.0-45.0); HEMOGLOBIN 13.1 g/dl (12.0-16.0); MEAN CORPUSCULAR HEMOGLOBIN 31.3 PG (27.0-31.0); MEAN CORPUSCULAR VOLUME 89.4 FL (78-98); MEAN PLATELET VOLUME 7.2 FL (7.4-10.4); PLATELET COUNT 318 X10'3 (140-440); RED BLOOD COUNT 4.19 X10'6 (4.20-5.60); RED CELL DISTRIBUTION WIDTH 13.1 % (11.5-14.5); WHITE BLOOD COUNT 7.8 X10'3 (4.5-11.0)
--- NOTE | 2019-07-03 06:27 | NUR ---
Problems reprioritized. Patient report given, questions answered & plan of care reviewed with Laura KAUR and Tami KAUR.
[2019-07-03 06:30] LABS: ANION GAP 7 (8-16); BILIRUBIN,TOTAL 0.4 MG/DL (0.1-1.0); BLOOD UREA NITROGEN 7 MG/DL (7-18); BUN/CREATININE RATIO 11.5 (6.6-38.0); CALCIUM 8.4 MG/DL (8.5-10.1); CHLORIDE 104 MMOL/L (99-107); CREATININE 0.61 MG/DL (0.40-0.90); GLUCOSE 90 MG/DL (70-104); MAGNESIUM 1.9 MG/DL (1.5-2.4); PHOSPHORUS 3.3 MG/DL (2.3-4.5); POTASSIUM 3.4 MMOL/L (3.5-5.1); SODIUM 139 MMOL/L (135-145); TOTAL CARBON DIOXIDE 28.5 MMOL/L (24-32); TOTAL PROTEIN 6.3 G/DL (6.4-8.2); eGFR > 90 ML/MIN
[2019-07-03 06:31] LABS: ALANINE AMINOTRANSFERASE 19 U/L (12-78); ALBUMIN/GLOBULIN RATIO 0.9 (1.1-1.5); ALKALINE PHOSPHATASE 63 IU/L (46-116); ASPARTATE AMINO TRANSFERASE 24 U/L (10-37)
--- NOTE | 2019-07-03 06:32 | NUR ---
Patient in room PCU 3017. I have received report from VINCENT Wheatley and had the opportunity to ask questions and assume patient care.
[2019-07-03] MEDS ORDERED: adenosine 3mg/ml 2ml vial IV ONE (08:00)
[2019-07-03] MEDS ORDERED: sod chloride 0.9% 10ml flush syringe IV ONE (08:00)
[2019-07-03] MEDS: clonazePAM 1mg tablet PO SCH (08:18)
[2019-07-03] MEDS: enoxaparin 40mg/0.4ml syringe SUBCUT SCH (08:18)
[2019-07-03] MEDS: potassium Cl 20 mEq SR tablet PO PRN (08:19)
[2019-07-03] MEDS: fludrocortisone acetate 0.1mg tablet PO SCH (08:19)
[2019-07-03] MEDS: carVEDilol 3.125mg tablet PO SCH (08:19)
[2019-07-03] MEDS: K and/or MAG REPLACEMENT MC SCH (08:20)
[2019-07-03] MEDS ORDERED: levetiracetam 250mg tablet PO SCH (09:51)
[2019-07-03] MEDS ORDERED: COR3.125T PO (09:51)
[2019-07-03] MEDS ORDERED: [UNRECOGNIZED DRUG - CODE] PO (09:51)
[2019-07-03 11:00] VITALS: BP 140/69
--- NOTE | 2019-07-03 13:11 | NUR ---
Pt was discharged at 1240 via wheelchair with hospital staff and partner. Pt and partner were educated on discharge paperwork. Discharge paperwork and medicare sheet signed
[2019-07-03] MEDS ORDERED: busPIRone 15mg tablet PO SCH (20:00)
[2019-07-03] MEDS ORDERED: gabapentin 300mg capsule PO SCH (21:00)
[2019-07-03] MEDS ORDERED: lurasidone 60mg tablet PO SCH (21:00)
[2019-07-03] MEDS ORDERED: QUEtiapine 25mg tablet PO SCH (21:00)
[2019-07-04] MEDS ORDERED: levoTHYROXINE 25mcg tablet PO SCH (08:00)
== END 2019-07-03 12:40 | disposition home or self-care (01) | DRG 71 ==
LOC: ER 12:17 → ED HOLD 16:19 → ORTHO 4S 18:00 → PCU 3S 07-01 17:52 → OBSVTOIN 07-03 08:00
PROVIDERS: ADMIT Family Medicine; ATTEND Family Medicine
DX: G93.41 Metabolic encephalopathy (principal); I47.1 Supraventricular tachycardia; E22.2 Syndrome of inappropriate secretion of antidiuretic hormone; I42.9 Cardiomyopathy, unspecified; F44.5 Conversion disorder with seizures or convulsions; E03.9 Hypothyroidism, unspecified; F17.210 Nicotine dependence, cigarettes, uncomplicated; F32.9 Major depressive disorder, single episode, unspecified; F41.0 Panic disorder [episodic paroxysmal anxiety]; I95.9 Hypotension, unspecified; F41.1 Generalized anxiety disorder; F43.10 Post-traumatic stress disorder, unspecified; Z79.899 Other long term (current) drug therapy; Z86.74 Personal history of sudden cardiac arrest; Z23 Encounter for immunization; Z88.8 Allergy status to other drugs, medicaments and biological substances; Z71.6 Tobacco abuse counseling; E87.6 Hypokalemia
CPT/HCPCS: 36415; 71045; 80053; 80305; 80320; 81001; 82140; 83735; 84100; 84443; 85025; 85027; 85610; 85730; 87081; 87088; 90471; 93005; 96361; 96365; 96375; 96376; 97161; 97530; 99285; G0378; J0153; J0282; J1200; J1630; J1650; J1953; J2060; J3490; J7030; Q2037

== ENCOUNTER 2020-03-18 21:14 | Emergency (ER) | payer MEDICARE, MEDICAID ==
[~2020-03-18] VITALS: Ht 167.6 cm; Wt 77.0 kg
[~2020-03-18 21:14] MED LIST changes: -BUS15T PO; +BUSP15TA3 PO; -CALC-1051 PO; +CARV3.1244 PO; -CLON1TAB12 PO; -LACO100T2 PO; -LEVE10006 PO; +LEVE250T PO; -LURA20TA PO; +LURA60TA2 PO; -NICO-630 TD; +QUET25TA34 PO; -THIA100T66 PO
--- NOTE | 2020-03-18 21:43 | NUR ---
Patient's is also named Danisha. Phone number is [phone]. She does not have a list of medications and we were instructed to call Tj on [facility] K[facility].
[2020-03-18 22:55] LABS: BASOPHILS % (AUTO) 0.5 % (0-1); EOSINOPHILS % (AUTO) 0.4 % (0-6); HEMATOCRIT 45.4 % (35.0-45.0); HEMOGLOBIN 15.2 g/dl (12.0-16.0); LYMPHOCYTES % (AUTO) 11.3 % (21-51); MEAN CORPUSCULAR HEMOGLOBIN 30.7 PG (27.0-31.0); MEAN CORPUSCULAR HGB CONC 33.4 g/dL (33.0-36.5); MEAN PLATELET VOLUME 6.8 FL (7.4-10.4); MONOCYTES # (AUTO) 0.7 X10'3 (0-0.9); MONOCYTES % (AUTO) 7.6 % (2-12); NEUTROPHILS # (AUTO) 7.3 X10'3 (1.8-7.7); NEUTROPHILS % (AUTO) 80.2 % (42-75); PLATELET COUNT 296 X10'3 (140-440); RED BLOOD COUNT 4.94 X10'6 (4.20-5.60); RED CELL DISTRIBUTION WIDTH 13.3 % (11.5-14.5); WHITE BLOOD COUNT 9.2 X10'3 (4.5-11.0)
[2020-03-18 23:10] LABS: ALANINE AMINOTRANSFERASE 28 U/L (12-78); ALBUMIN 4.2 G/DL (3.4-5.0); ALBUMIN/GLOBULIN RATIO 1.1 (1.1-1.5); ALKALINE PHOSPHATASE 120 IU/L (46-116); ANION GAP 11 (8-16); ASPARTATE AMINO TRANSFERASE 15 U/L (10-37); BILIRUBIN,TOTAL 0.2 MG/DL (0.1-1.0); BLOOD UREA NITROGEN 13 MG/DL (7-18); BUN/CREATININE RATIO 12.1 (6.6-38.0); CALCIUM 9.3 MG/DL (8.5-10.1); CHLORIDE 104 MMOL/L (99-107); CREATININE 1.07 MG/DL (0.40-0.90); GLUCOSE 94 MG/DL (70-104); POTASSIUM 3.5 MMOL/L (3.5-5.1); SODIUM 138 MMOL/L (135-145); TOTAL CARBON DIOXIDE 23.1 MMOL/L (24-32); TOTAL PROTEIN 7.9 G/DL (6.4-8.2); eGFR 53 ML/MIN
[2020-03-18 23:57] VITALS: BP 139/81
== END 2020-03-19 00:01 | disposition home or self-care (01) ==
LOC: ER 21:15
DX: G40.909 Epilepsy, unspecified, not intractable, without status epilepticus (principal); F41.9 Anxiety disorder, unspecified; F32.9 Major depressive disorder, single episode, unspecified; F17.200 Nicotine dependence, unspecified, uncomplicated; Z88.8 Allergy status to other drugs, medicaments and biological substances; Z79.899 Other long term (current) drug therapy
CPT/HCPCS: 36415; 80053; 85025; 99283

== ENCOUNTER 2020-04-25 20:26 | Emergency (ER) | payer MEDICARE, MEDICAID ==
[~2020-04-25] VITALS: Ht 157.5 cm; Wt 68.2 kg
[2020-04-25 22:38] LABS: BASOPHILS % (AUTO) 0.5 % (0-1); EOSINOPHILS % (AUTO) 0.3 % (0-6); HEMATOCRIT 39.7 % (35.0-45.0); HEMOGLOBIN 13.4 g/dl (12.0-16.0); LYMPHOCYTES % (AUTO) 14.1 % (21-51); MEAN CORPUSCULAR HGB CONC 33.8 g/dL (33.0-36.5); MEAN CORPUSCULAR VOLUME 91.7 FL (78-98); MONOCYTES # (AUTO) 0.4 X10'3 (0-0.9); MONOCYTES % (AUTO) 5.6 % (2-12); NEUTROPHILS # (AUTO) 5.8 X10'3 (1.8-7.7); NEUTROPHILS % (AUTO) 79.5 % (42-75); PLATELET COUNT 268 X10'3 (140-440); RED BLOOD COUNT 4.33 X10'6 (4.20-5.60); RED CELL DISTRIBUTION WIDTH 13.4 % (11.5-14.5); WHITE BLOOD COUNT 7.3 X10'3 (4.5-11.0)
[2020-04-25 22:49] LABS: ALANINE AMINOTRANSFERASE 21 U/L (12-78); ALBUMIN 3.8 G/DL (3.4-5.0); ALBUMIN/GLOBULIN RATIO 1.1 (1.1-1.5); ALKALINE PHOSPHATASE 96 IU/L (46-116); ANION GAP 6 (8-16); ASPARTATE AMINO TRANSFERASE 12 U/L (10-37); BILIRUBIN,TOTAL 0.3 MG/DL (0.1-1.0); BLOOD UREA NITROGEN 9 MG/DL (7-18); BUN/CREATININE RATIO 9.3 (6.6-38.0); CALCIUM 9.1 MG/DL (8.5-10.1); CHLORIDE 107 MMOL/L (99-107); CREATININE 0.97 MG/DL (0.40-0.90); ETHANOL < 0.010 GM/DL (0.0-0.010); GLUCOSE 95 MG/DL (70-104); POTASSIUM 4.1 MMOL/L (3.5-5.1); SODIUM 138 MMOL/L (135-145); TOTAL CARBON DIOXIDE 25.2 MMOL/L (24-32); TOTAL PROTEIN 7.2 G/DL (6.4-8.2); eGFR 59 ML/MIN
[2020-04-25 22:55] LABS: CLARITY,URINE CLEAR (Clear); COLOR,URINE STRAW (Yellow); GLUCOSE, URINE NEGATIVE (Neg); KETONES,URINE NEGATIVE (Neg); LEUKOCYTE ESTERASE ,URINE NEGATIVE (Neg); NITRITES, URINE NEGATIVE (Neg); OCCULT BLOOD,URINE NEGATIVE (Neg); PROTEIN,URINE NEGATIVE (Neg); UROBILINOGEN,URINE 0.2 E.U/dL (0.2-1.0)
[2020-04-25 22:58] LABS: URINE AMPHETAMINE SCREEN NEGATIVE (Neg); URINE BARBITUATE SCREEN NEGATIVE (Neg); URINE BENZODIAZEPINES SCREEN NEGATIVE (Neg); URINE CANNABINOID SCREEN NEGATIVE (Neg); URINE COCAINE SCREEN NEGATIVE (Neg); URINE METHADONE SCREEN NEGATIVE (Neg); URINE OPIATE SCREEN NEGATIVE (Neg); URINE PHENCYCLIDINE SCREEN NEGATIVE (Neg)
[2020-04-25 23:07] LABS: UA COLLECTION TYPE VOIDED
[2020-04-25 23:20] VITALS: BP 119/68
== END 2020-04-25 23:23 | disposition home or self-care (01) ==
LOC: ER 20:26
DX: R56.9 Unspecified convulsions (principal); F41.9 Anxiety disorder, unspecified; F32.9 Major depressive disorder, single episode, unspecified; Z88.8 Allergy status to other drugs, medicaments and biological substances; Z79.899 Other long term (current) drug therapy
CPT/HCPCS: 36415; 71045; 80053; 80305; 80320; 81003; 85025; 93005; 99285

== ENCOUNTER 2020-05-07 18:38 | Emergency (ER) | payer MEDICARE, MEDICAID ==
[~2020-05-07] VITALS: Ht 157.5 cm; Wt 63.6 kg
[2020-05-07 19:08] VITALS: BP 160/77
[2020-05-07 19:08] LABS: CLARITY,URINE CLEAR (Clear); COLOR,URINE YELLOW (Yellow); GLUCOSE, URINE NEGATIVE (Neg); KETONES,URINE NEGATIVE (Neg); LEUKOCYTE ESTERASE ,URINE MODERATE (Neg); NITRITES, URINE NEGATIVE (Neg); OCCULT BLOOD,URINE NEGATIVE (Neg); PH,URINE 7.5 (4.8-8.0); PROTEIN,URINE NEGATIVE (Neg); UROBILINOGEN,URINE 0.2 E.U/dL (0.2-1.0)
--- NOTE | 2020-05-07 19:11 | NUR ---
LABS DRAWN, URINE COLLECTED, SBA TO BSA, PT REPROTS SHE IS STEADY BUT FEELS SOME DIZZINESS. VSS.
[2020-05-07 19:15] LABS: BASOPHILS % (AUTO) 0.7 % (0-1); EOSINOPHILS % (AUTO) 0.5 % (0-6); HEMATOCRIT 40.1 % (35.0-45.0); HEMOGLOBIN 13.4 g/dl (12.0-16.0); LYMPHOCYTES # (AUTO) 1.1 X10'3 (1.1-4.8); LYMPHOCYTES % (AUTO) 16.5 % (21-51); MEAN CORPUSCULAR HEMOGLOBIN 30.4 PG (27.0-31.0); MEAN CORPUSCULAR HGB CONC 33.4 g/dL (33.0-36.5); MEAN CORPUSCULAR VOLUME 90.9 FL (78-98); MEAN PLATELET VOLUME 7.5 FL (7.4-10.4); MONOCYTES # (AUTO) 0.6 X10'3 (0-0.9); MONOCYTES % (AUTO) 8.9 % (2-12); NEUTROPHILS # (AUTO) 4.8 X10'3 (1.8-7.7); NEUTROPHILS % (AUTO) 73.4 % (42-75); PLATELET COUNT 299 X10'3 (140-440); RED BLOOD COUNT 4.41 X10'6 (4.20-5.60); RED CELL DISTRIBUTION WIDTH 13.3 % (11.5-14.5); WHITE BLOOD COUNT 6.6 X10'3 (4.5-11.0)
[2020-05-07 19:17] LABS: ALANINE AMINOTRANSFERASE 24 U/L (12-78); ALBUMIN/GLOBULIN RATIO 1.2 (1.1-1.5); ALKALINE PHOSPHATASE 98 IU/L (46-116); ANION GAP 10 (8-16); ASPARTATE AMINO TRANSFERASE 16 U/L (10-37); BILIRUBIN,TOTAL 0.2 MG/DL (0.1-1.0); BLOOD UREA NITROGEN 14 MG/DL (7-18); BUN/CREATININE RATIO 14.4 (6.6-38.0); CALCIUM 8.7 MG/DL (8.5-10.1); CHLORIDE 100 MMOL/L (99-107); CREATININE 0.97 MG/DL (0.40-0.90); GLUCOSE 96 MG/DL (70-104); POTASSIUM 3.7 MMOL/L (3.5-5.1); SODIUM 134 MMOL/L (135-145); TOTAL CARBON DIOXIDE 24.1 MMOL/L (24-32); TOTAL PROTEIN 7.3 G/DL (6.4-8.2); eGFR 59 ML/MIN
[2020-05-07 19:18] LABS: UA COLLECTION TYPE CLN CATCH MIDSTREAM
[2020-05-07 19:21] LABS: BACTERIA,URINE FEW /HPF (Neg); RBC,URINE 0-2 /HPF (0-2); WBC,URINE 0-4 /HPF (0-4)
[2020-05-07 19:22] LABS: SQUAMOUS EPITHELIAL CELL,UR NONE SEEN /LPF (FEW)
== END 2020-05-07 20:57 | disposition home or self-care (01) ==
LOC: ER 18:38
DX: R56.9 Unspecified convulsions (principal); F41.9 Anxiety disorder, unspecified; F32.9 Major depressive disorder, single episode, unspecified; F17.200 Nicotine dependence, unspecified, uncomplicated; Z86.69 Personal history of other diseases of the nervous system and sense organs; Z87.01 Personal history of pneumonia (recurrent); Z88.8 Allergy status to other drugs, medicaments and biological substances; Z79.899 Other long term (current) drug therapy
CPT/HCPCS: 36415; 80053; 81001; 85025; 87088; 99284

== ENCOUNTER 2021-12-26 21:35 | Emergency (ER) | payer MEDICARE, MEDICAID ==
[~2021-12-26] VITALS: Ht 157.5 cm; Wt 63.6 kg
[~2021-12-26 21:35] MED LIST changes: +LURA60TA PO; -LURA60TA2 PO; -QUET25TA34 PO; +QUET25TA36 PO
[2021-12-26] MEDS ORDERED: levetiracetam inj 1,000 MG in normal saline 100ml IV soln 90 ML IV ONE (22:00)
[2021-12-26] MEDS ORDERED: normal saline 1000ml 1,000 ML IV ONE (22:00)
[2021-12-26] MEDS ORDERED: levetiracetam-NS 1000mg/100ml 100 ML IV ONE (22:01)
[2021-12-26] MEDS ORDERED: magnesium 2GM in 50ml NS 50 ML IV ONE (22:20)
[2021-12-26] MEDS ORDERED: LORazepam 2 mg/ml vial IV ONE (22:20)
[2021-12-26 22:30] LABS: BASOPHILS % (AUTO) 0.3 % (0-1); EOSINOPHILS # (AUTO) 0.1 X10'3 (0-0.9); EOSINOPHILS % (AUTO) 1.4 % (0-6); HEMATOCRIT 40.8 % (35.0-45.0); HEMOGLOBIN 14.2 g/dl (12.0-16.0); LYMPHOCYTES % (AUTO) 12.7 % (21-51); MEAN CORPUSCULAR HGB CONC 34.7 g/dL (33.0-36.5); MEAN CORPUSCULAR VOLUME 89.3 FL (78-98); MONOCYTES # (AUTO) 0.6 X10'3 (0-0.9); MONOCYTES % (AUTO) 7.5 % (2-12); NEUTROPHILS # (AUTO) 6.4 X10'3 (1.8-7.7); NEUTROPHILS % (AUTO) 78.1 % (42-75); PLATELET COUNT 306 X10'3 (140-440); RED BLOOD COUNT 4.57 X10'6 (4.20-5.60); RED CELL DISTRIBUTION WIDTH 13.2 % (11.5-14.5); WHITE BLOOD COUNT 8.2 X10'3 (4.5-11.0)
[2021-12-26 22:45] LABS: ALANINE AMINOTRANSFERASE 28 U/L (12-78); ALBUMIN 4.2 G/DL (3.4-5.0); ALBUMIN/GLOBULIN RATIO 1.2 (1.1-1.5); ALKALINE PHOSPHATASE 81 IU/L (46-116); ANION GAP 11 (8-16); ASPARTATE AMINO TRANSFERASE 17 U/L (10-37); BILIRUBIN,TOTAL 0.3 MG/DL (0.1-1.0); BLOOD UREA NITROGEN 12 MG/DL (7-18); BUN/CREATININE RATIO 13.3 (6.6-38.0); CALCIUM 8.9 MG/DL (8.5-10.1); CHLORIDE 103 MMOL/L (99-107); GLUCOSE 99 MG/DL (70-104); POTASSIUM 3.6 MMOL/L (3.5-5.1); SODIUM 139 MMOL/L (135-145); TOTAL CARBON DIOXIDE 25.5 MMOL/L (24-32); TOTAL PROTEIN 7.7 G/DL (6.4-8.2); eGFR 64 ML/MIN
[2021-12-26 22:46] LABS: CREATINE KINASE 92 U/L (26-192)
[2021-12-26 23:25] LABS: CLARITY,URINE CLEAR (Clear); COLOR,URINE YELLOW (Yellow); GLUCOSE, URINE NEGATIVE (Neg); KETONES,URINE NEGATIVE (Neg); LEUKOCYTE ESTERASE ,URINE NEGATIVE (Neg); NITRITES, URINE NEGATIVE (Neg); OCCULT BLOOD,URINE NEGATIVE (Neg); PH,URINE 7.5 (4.8-8.0); PROTEIN,URINE NEGATIVE (Neg); UROBILINOGEN,URINE 0.2 E.U/dL (0.2-1.0)
[2021-12-26 23:31] LABS: UA COLLECTION TYPE CLN CATCH MIDSTREAM
[2021-12-26 23:34] VITALS: BP 138/74
== END 2021-12-27 00:12 | disposition home or self-care (01) ==
LOC: ER 21:35
DX: G40.909 Epilepsy, unspecified, not intractable, without status epilepticus (principal); Z87.01 Personal history of pneumonia (recurrent); Z88.8 Allergy status to other drugs, medicaments and biological substances; Z79.899 Other long term (current) drug therapy
CPT/HCPCS: 36415; 80053; 81003; 82550; 85025; 96365; 96367; 96375; 99284; J1953; J2060; J3475; J7030

== ENCOUNTER 2022-03-18 21:03 | Inpatient (IN) | payer MEDICARE, MEDICAID ==
[~2022-03-18] VITALS: Ht 157.5 cm; Wt 72.7 kg
[2022-03-18] MEDS ORDERED: LORazepam 2 mg/ml vial IV ONE (23:35)
[2022-03-19 01:30] LABS: CLARITY,URINE CLEAR (Clear); GLUCOSE, URINE NEGATIVE (Neg); KETONES,URINE NEGATIVE (Neg); LEUKOCYTE ESTERASE ,URINE NEGATIVE (Neg); NITRITES, URINE NEGATIVE (Neg); OCCULT BLOOD,URINE NEGATIVE (Neg); PROTEIN,URINE NEGATIVE (Neg); UROBILINOGEN,URINE 0.2 E.U/dL (0.2-1.0)
[2022-03-19 01:34] LABS: COLOR,URINE Straw (Yellow); UA COLLECTION TYPE NON-SPECIFIED
[2022-03-19 01:59] LABS: BASOPHILS # (AUTO) 0.1 X10'3 (0-0.2); BASOPHILS % (AUTO) 0.6 % (0-1); EOSINOPHILS % (AUTO) 0.1 % (0-6); HEMATOCRIT 39.5 % (35.0-45.0); HEMOGLOBIN 13.7 g/dl (12.0-16.0); LYMPHOCYTES # (AUTO) 1.5 X10'3 (1.1-4.8); LYMPHOCYTES % (AUTO) 14.2 % (21-51); MEAN CORPUSCULAR HEMOGLOBIN 30.8 PG (27.0-31.0); MEAN CORPUSCULAR HGB CONC 34.6 g/dL (33.0-36.5); MEAN CORPUSCULAR VOLUME 89.1 FL (78-98); MONOCYTES # (AUTO) 0.7 X10'3 (0-0.9); MONOCYTES % (AUTO) 7.2 % (2-12); NEUTROPHILS # (AUTO) 8.1 X10'3 (1.8-7.7); NEUTROPHILS % (AUTO) 77.9 % (42-75); PLATELET COUNT 286 X10'3 (140-440); RED BLOOD COUNT 4.44 X10'6 (4.20-5.60); RED CELL DISTRIBUTION WIDTH 13.2 % (11.5-14.5); WHITE BLOOD COUNT 10.4 X10'3 (4.5-11.0)
[2022-03-19 02:08] LABS: ALANINE AMINOTRANSFERASE 19 U/L (12-78); ALBUMIN 4.1 G/DL (3.4-5.0); ALBUMIN/GLOBULIN RATIO 1.2 (1.1-1.5); ALKALINE PHOSPHATASE 76 IU/L (46-116); ANION GAP 8 (8-16); ASPARTATE AMINO TRANSFERASE 17 U/L (10-37); BILIRUBIN,TOTAL 0.3 MG/DL (0.1-1.0); BLOOD UREA NITROGEN 6 MG/DL (7-18); BUN/CREATININE RATIO 9.1 (6.6-38.0); CHLORIDE 103 MMOL/L (99-107); CREATININE 0.66 MG/DL (0.40-0.90); GLUCOSE 111 MG/DL (70-104); POTASSIUM 3.6 MMOL/L (3.5-5.1); SODIUM 141 MMOL/L (135-145); TOTAL PROTEIN 7.4 G/DL (6.4-8.2); eGFR > 90 ML/MIN
[2022-03-19 02:10] LABS: MAGNESIUM 2.1 MG/DL (1.5-2.4)
[2022-03-19] MEDS ORDERED: aspirin 325mg tablet PO ONE (03:00)
[2022-03-19] MEDS ORDERED: heparin 10,000 units/1 ML INJ IV PRN (03:00)
[2022-03-19] MEDS ORDERED: heparin 25,000 UNIT/250ml bag 250 ML IV SCH (03:00)
[2022-03-19] MEDS ORDERED: heparin 10,000 units/1 ML INJ IV ONE ×2 (03:00→03:20)
--- NOTE | 2022-03-19 03:01 | NUR ---
Success A new connect request was successfully created for: ROB HURTADO : 1960 ConnectID: [id number] REASON: Other Emergency ACUITY: Acuity Level 2 SUBMITTED: 03/19/2022 03:01 PDT
[2022-03-19] MEDS ORDERED: levetiracetam inj 1,000 MG in normal saline 100ml IV soln 90 ML IV ONE (03:05)
[2022-03-19 04:37] LABS: BASOPHILS % (AUTO) 0.3 % (0-1); EOSINOPHILS # (AUTO) 0.1 X10'3 (0-0.9); EOSINOPHILS % (AUTO) 0.5 % (0-6); HEMATOCRIT 40.9 % (35.0-45.0); HEMOGLOBIN 13.8 g/dl (12.0-16.0); LYMPHOCYTES # (AUTO) 1.8 X10'3 (1.1-4.8); LYMPHOCYTES % (AUTO) 17.4 % (21-51); MEAN CORPUSCULAR HEMOGLOBIN 30.4 PG (27.0-31.0); MEAN CORPUSCULAR HGB CONC 33.7 g/dL (33.0-36.5); MEAN CORPUSCULAR VOLUME 90.1 FL (78-98); MEAN PLATELET VOLUME 7.4 FL (7.4-10.4); MONOCYTES # (AUTO) 0.9 X10'3 (0-0.9); NEUTROPHILS # (AUTO) 7.4 X10'3 (1.8-7.7); NEUTROPHILS % (AUTO) 72.8 % (42-75); PLATELET COUNT 299 X10'3 (140-440); RED BLOOD COUNT 4.54 X10'6 (4.20-5.60); RED CELL DISTRIBUTION WIDTH 13.6 % (11.5-14.5); WHITE BLOOD COUNT 10.2 X10'3 (4.5-11.0)
[2022-03-19 04:50] LABS: APTT 25 SECONDS (22-32)
[2022-03-19] MEDS ORDERED: mag hydrox/Alum hydrox/simeth 30ml oral suspension PO PRN (06:20)
[2022-03-19] MEDS ORDERED: ondansetron/PF 4mg/2ml inj IV PRN (06:20)
[2022-03-19] MEDS ORDERED: magnesium Cl slow-release 64mg tablet PO PRN (06:20)
[2022-03-19] MEDS ORDERED: potassium CL 10mEq/100ml bag 100 ML IV PRN (06:20)
[2022-03-19] MEDS ORDERED: magnesium 4gm in 100ml NS 100 ML IV PRN (06:20)
[2022-03-19] MEDS ORDERED: POTASSIUM BICARB 20meq eff tab 20 MEQ TABLET.EFF PO PRN ×2 (06:20)
[2022-03-19] MEDS ORDERED: magnesium 2GM in 50ml NS 50 ML IV PRN (06:20)
[2022-03-19] MEDS ORDERED: magnesium hydroxide 30ml (MOM) UD suspension PO PRN (06:20)
[2022-03-19] MEDS ORDERED: acetaminophen 325mg tablet PO PRN ×2 (06:20)
--- NOTE | 2022-03-19 07:20 | NUR ---
PT OUT OF BED, PULLED HER IV. SHE IS CONFUSED AND DOESNT KNOW WHERE SHE IS OR WHY SHE IS HERE. PT HELLPED BACK TO BED. HEPARIN INFUSION CONTINUED.
[2022-03-19] MEDS: K and/or MAG REPLACEMENT MC SCH ×2 (08:00→20:00)
[2022-03-19] MEDS: docusate sod 100mg capsule PO SCH ×2 (08:00→20:00)
--- NOTE | 2022-03-19 08:02 | NUR ---
ER MD ASKED FOR EVAL OF PT. PT IS SLURRING HER WORDS, WORD SALAD, UNABLE TO TELL ME LOCATION, SITUATION, YEAR. PT TELLS ME "I CANT DO NUMBERS RIGHT NOW, I DONT KNOW WHAT IS HAPPENING." BG 124. MD AT BEDSIDE. MD VOICES PT SYMPTOMS COINCIDE WITH POSTICTAL VS, STROKE.
--- NOTE | 2022-03-19 08:44 | NUR ---
PT INCREASED CONFUSION ASKED RECORDS MANAGEMENT DIRECTOR TO BEDSIDE. REQUESTED ER MD TO BEDSIDE AGAIN FOR ASSESSMENT. MD REFERRED FOLLOW UP CARE TO HOSPITALIST. PAGED . SAMUEL.
--- NOTE | 2022-03-19 08:47 | NUR ---
PER DR. BAKER STAT HEAD CT W/O CONTRAST, TELE NEURO CONSULT, ATIVAN 2 MG IV. TELEPHONE ORDER READ BACK AND CONFIRMED.
[2022-03-19] MEDS ORDERED: LORazepam 2 mg/ml vial IV ONE ×2 (08:55→12:15)
[2022-03-19] MEDS: LACOSAMIDE 50 MG TABLET PO SCH ×2 (09:03→20:00)
[2022-03-19] MEDS: levetiracetam 250mg tablet PO SCH ×2 (09:04→20:00)
[2022-03-19 09:09] LABS: HEMOGLOBIN A1C 5.6 % (4.5-6.2)
[2022-03-19 09:39] LABS: MAGNESIUM 2.2 MG/DL (1.5-2.4); POTASSIUM 3.8 MMOL/L (3.5-5.1)
--- NOTE | 2022-03-19 09:56 | NUR ---
promotional table spacer Message: ER BED 6 PTT 94. HEPARIN HOLD Custom Responses: promotional table spacer Transaction number: [id number]
[2022-03-19] MEDS ORDERED: propranolol 10mg tablet PO ONE (10:05)
--- NOTE | 2022-03-19 10:12 | NUR ---
PT CLIMBED OUT OF BED AGAIN, PULLED IV. PT FOUND WALKING PAST NURSES STATION. PT IS CONFUSED AND UNSTABLE.
--- NOTE | 2022-03-19 10:13 | NUR ---
DISCUSSED PT CONDITION W/. GAVE ORDER FOR NON BEHAIVORAL RESTRAINTS TO PROVIDE SAFETY MEASURES. VERBAL ORDER TO DC HEPARIN GTT.
--- NOTE | 2022-03-19 10:20 | NUR ---
DR. BAKER AT BEDSIDE PER MY CONCERNS OF SLURRED WORDS, INAPROPRIATE SPEECH, AND FACIAL DROOP. MD VERBALIZED CONCERN OVER LEFT SIDED FACIAL DROOP AND CONFUSION. LEVEL 1 STROKE ALERT INITIATED PER MD ORDER.
--- NOTE | 2022-03-19 10:22 | NUR ---
UPDATED PT PARTNER OF PTS CURRENT CONDITION AND PLAN OF CARE.
--- NOTE | 2022-03-19 10:38 | NUR ---
ROB ([facility]) [phone]
--- NOTE | 2022-03-19 12:13 | NUR ---
RESPONDED TO STROKE ALERT IN ED, PT HAS BEEN HERE SINCE YESTERDAY PROLONGED POST ICTAL PERIOD, CHANGE IN SEIZURE MEDICATIONS. PRESENTLY NURSE AT BEDSIDE PLACING IV THAT SHE HAS REPEATEDLY PULLED OUT. HER NEW SYMPTOMS MAY INCLUDE FACIAL DROOP, SHE STATES THIS COMES AND GOES REGULARLY, BUT SHE IS SOMEWHAT CONFUSED. SHE DOES DEMONSTATE A FACIAL DROOP THAT IS OVER COME WITH SMILE. PLAN IS FOR MRI, TELENEURO HAS ALREADY CONSULTED.
--- NOTE | 2022-03-19 12:35 | NUR ---
PT CONTINUES TO GET OUT OF HER RESTRAINTS. PT PULLED HER UA GUIDED IV. PT IS ALTERED. WILL ASK CHARGE FOR SITTER OR ROOM CHANGE.
[2022-03-19] MEDS ORDERED: GABA300C PO (12:36)
[2022-03-19] MEDS ORDERED: AMAN100C20 PO (12:36)
[2022-03-19] MEDS ORDERED: AMIT75TA7 PO (12:36)
[2022-03-19] MEDS ORDERED: TOPI50TA24 PO (12:36)
[2022-03-19] MEDS ORDERED: LACO100T4 PO (12:36)
[2022-03-19] MEDS ORDERED: LEVE750T PO (12:36)
[2022-03-19] MEDS ORDERED: HYDR50TA65 PO (12:36)
[2022-03-19] MEDS ORDERED: PERFLUTREN PROTEIN-A MICROSPHR (Optison) 0.22 MG/ML 3ML VIAL IV ONE (15:55)
[2022-03-19] MEDS ORDERED: metoprolol tartrate 1mg/ml inj IV PRN (15:55)
[2022-03-19] MEDS ORDERED: nitroGLYCERIN 0.4mg SUBLingual tab SL PRN (15:55)
[2022-03-19] MEDS ORDERED: aminophylline 250mg/10ml inj. IV PRN (15:55)
[2022-03-19] MEDS ORDERED: regadenoson 0.4mg/5ml syringe IV PRN (15:55)
[2022-03-19] MEDS ORDERED: LORazepam 2 mg/ml vial IM ONE (16:00)
--- NOTE | 2022-03-19 16:05 | NUR ---
Patient in room PCU 3022. I have received report from VINCENT AGUSTIN, and had the opportunity to ask questions and assume patient care.
[2022-03-19] MEDS ORDERED: iohexol 350MG/ML 100ml bottle IV ONE (16:09)
[2022-03-19 16:15] VITALS: BP 141/87
[2022-03-19 18:00] VITALS: BP 126/86
--- NOTE | 2022-03-19 18:45 | NUR ---
Problems reprioritized. Patient report given, questions answered & plan of care reviewed with FAB RN AND VINCENT RAYMUNDO.
--- NOTE | 2022-03-19 18:58 | NUR ---
Patient in room PCU 3022. I have received report from Maria Fernanda KAUR and had the opportunity to ask questions and assume patient care. Pt is sitting up in bed. Sitter at bed side. no s/s of distress, no c/o pain. BLL, call light within reach, frequently used items in reach, frequent rounding. Will continue to monitior.
[2022-03-19] MEDS: morphine 2 MG/ML inj. syringe IV PRN (19:35)
[2022-03-19] MEDS: propranolol 10mg tablet PO SCH (20:00)
[2022-03-19] MEDS ORDERED: LORazepam 2 mg/ml vial IV PRN (20:15)
--- NOTE | 2022-03-19 21:10 | NUR ---
Computer scanner not recognizing pts arm band code. Pt able to confirm name and verbally. checked against pts eMAR name and .
[2022-03-19 22:00] VITALS: BP 112/76
[2022-03-20] VITALS (11 sets, daily range): BP systolic 91–125; BP diastolic 47–92
--- NOTE | 2022-03-20 02:05 | NUR ---
Resource nurse informed primary nurse Pt was able to remove piv on L wrist. Tip intact no c/o pain to the site. Pt has piv to R forearm. Flushes well, no s/s of infiltration or c/o pain to the site. Will continue to montior.
[2022-03-20] MEDS: morphine 2 MG/ML inj. syringe IV PRN (02:51)
--- NOTE | 2022-03-20 06:20 | NUR ---
Problems reprioritized. Patient report given, questions answered & plan of care reviewed with Shelton KAUR.
[2022-03-20 06:53] LABS: BASOPHILS # (AUTO) 0.1 X10'3 (0-0.2); BASOPHILS % (AUTO) 0.8 % (0-1); EOSINOPHILS # (AUTO) 0.2 X10'3 (0-0.9); EOSINOPHILS % (AUTO) 3.5 % (0-6); HEMATOCRIT 39.1 % (35.0-45.0); HEMOGLOBIN 13.2 g/dl (12.0-16.0); LYMPHOCYTES # (AUTO) 2.2 X10'3 (1.1-4.8); LYMPHOCYTES % (AUTO) 30.5 % (21-51); MEAN CORPUSCULAR HEMOGLOBIN 30.4 PG (27.0-31.0); MEAN CORPUSCULAR HGB CONC 33.8 g/dL (33.0-36.5); MEAN PLATELET VOLUME 7.3 FL (7.4-10.4); MONOCYTES # (AUTO) 0.9 X10'3 (0-0.9); MONOCYTES % (AUTO) 12.1 % (2-12); NEUTROPHILS # (AUTO) 3.8 X10'3 (1.8-7.7); NEUTROPHILS % (AUTO) 53.1 % (42-75); PLATELET COUNT 287 X10'3 (140-440); RED BLOOD COUNT 4.35 X10'6 (4.20-5.60); RED CELL DISTRIBUTION WIDTH 13.4 % (11.5-14.5); WHITE BLOOD COUNT 7.1 X10'3 (4.5-11.0)
--- NOTE | 2022-03-20 06:58 | NUR ---
TECH FOR [facility] GOT PT OUT OF RESTRAINTS AND INTO WHEELCHAIR, NOTIFIED ME HE WAS TAKING HER TO L[facility]AN. I SUGGESTED HE TAKE THE SITTER PER REPORT SHE CAN BE COMBATIVE. HE CALLED [facility] AND HANDED ME THE PHONE, I SPOKE WITH STAFF FOR KRISTINE SCAN ON THE PHONE, SHE REQUESTED I GIVE PT HER SEIZURE AND BP MEDS PRIOR TO LEXISCAN. WHEN I GOT OFF PHONE THE TECH HAD LEFT THE FLOOR WITH PT AND SITTER, I WAS UNABLE TO CATCH UP TO THEM AND UNABLE TO REACH [facility] TO LET HER KNOW MEDS COULD NOT BE GIVEN
[2022-03-20 07:27] LABS: ALANINE AMINOTRANSFERASE 18 U/L (12-78); ALBUMIN 3.4 G/DL (3.4-5.0); ALBUMIN/GLOBULIN RATIO 1.1 (1.1-1.5); ALKALINE PHOSPHATASE 70 IU/L (46-116); ANION GAP 7 (8-16); ASPARTATE AMINO TRANSFERASE 18 U/L (10-37); BILIRUBIN,TOTAL 0.4 MG/DL (0.1-1.0); BLOOD UREA NITROGEN 8 MG/DL (7-18); BUN/CREATININE RATIO 12.3 (6.6-38.0); CALCIUM 8.9 MG/DL (8.5-10.1); CHLORIDE 104 MMOL/L (99-107); CHOL/HDL RATIO 2.6 (0.00-4.99); CHOLESTEROL 172 MG/DL (0-200); CREATININE 0.65 MG/DL (0.40-0.90); GLUCOSE 88 MG/DL (70-104); HDL CHOLESTEROL 66 MG/DL (35-60); LDL CHOLESTEROL 80 MG/DL (50-100); POTASSIUM 3.5 MMOL/L (3.5-5.1); SODIUM 137 MMOL/L (135-145); TOTAL CARBON DIOXIDE 26.5 MMOL/L (24-32); TOTAL PROTEIN 6.5 G/DL (6.4-8.2); TRIGLYCERIDES 69 MG/DL (20-135); eGFR > 90 ML/MIN
[2022-03-20] MEDS: K and/or MAG REPLACEMENT MC SCH ×2 (08:00→20:13)
[2022-03-20] MEDS: atorvastatin 20mg tablet PO SCH (10:40)
[2022-03-20] MEDS: docusate sod 100mg capsule PO SCH ×2 (10:40→19:54)
[2022-03-20] MEDS: levetiracetam 250mg tablet PO SCH ×2 (10:40→19:54)
[2022-03-20] MEDS: aspirin 81mg tab.chew PO SCH (10:41)
[2022-03-20] MEDS: propranolol 10mg tablet PO SCH ×2 (10:41→19:54)
[2022-03-20] MEDS: LACOSAMIDE 50 MG TABLET PO SCH ×2 (10:46→22:18)
[2022-03-20] MEDS ORDERED: LORazepam 2 mg/ml vial IV ONE (11:10)
--- NOTE | 2022-03-20 16:23 | NUR ---
PATIENT TRANSPORTED TO [facility] WITH STAFF NURSE FOR MRI
--- NOTE | 2022-03-20 18:31 | NUR ---
Patient in room PCU 3022. I have received report from Shelton KAUR and had the opportunity to ask questions and assume patient care
--- NOTE | 2022-03-20 20:10 | NUR ---
Pts 22G piv to R lower forearm infiltrated. Piv site red and inflamed. pt had c/o pain to site, could not tolerate a flush. Piv Dc'd, tip intact. Site red and bleeding. Cleaned with alochol and dressed with dry steral gauze and tape. Pt stated she felt better with piv removed. Will attempt to place another piv.
[2022-03-20] MEDS ORDERED: hydrOXYzine 25 MG tablet PO PRN (23:30)
[2022-03-20] MEDS ORDERED: LACOSAMIDE 50 MG TABLET PO SCH (23:38)
[2022-03-21 02:02] VITALS: BP 96/69
[2022-03-21 06:00] VITALS: BP 114/53
--- NOTE | 2022-03-21 06:18 | NUR ---
Problems reprioritized. Patient report given, questions answered & plan of care reviewed with Shelton KAUR.
[2022-03-21 07:05] LABS: BASOPHILS # (AUTO) 0.1 X10'3 (0-0.2); BASOPHILS % (AUTO) 1.1 % (0-1); EOSINOPHILS # (AUTO) 0.4 X10'3 (0-0.9); EOSINOPHILS % (AUTO) 7.1 % (0-6); HEMATOCRIT 39.6 % (35.0-45.0); HEMOGLOBIN 13.3 g/dl (12.0-16.0); LYMPHOCYTES # (AUTO) 1.4 X10'3 (1.1-4.8); LYMPHOCYTES % (AUTO) 23.8 % (21-51); MEAN CORPUSCULAR HEMOGLOBIN 30.2 PG (27.0-31.0); MEAN CORPUSCULAR HGB CONC 33.5 g/dL (33.0-36.5); MEAN PLATELET VOLUME 7.2 FL (7.4-10.4); MONOCYTES # (AUTO) 0.6 X10'3 (0-0.9); MONOCYTES % (AUTO) 10.2 % (2-12); NEUTROPHILS # (AUTO) 3.5 X10'3 (1.8-7.7); NEUTROPHILS % (AUTO) 57.8 % (42-75); PLATELET COUNT 281 X10'3 (140-440); RED CELL DISTRIBUTION WIDTH 13.4 % (11.5-14.5)
[2022-03-21 07:36] LABS: ALANINE AMINOTRANSFERASE 20 U/L (12-78); ALBUMIN 3.3 G/DL (3.4-5.0); ALBUMIN/GLOBULIN RATIO 1.1 (1.1-1.5); ALKALINE PHOSPHATASE 67 IU/L (46-116); ANION GAP 7 (8-16); ASPARTATE AMINO TRANSFERASE 16 U/L (10-37); BILIRUBIN,TOTAL 0.4 MG/DL (0.1-1.0); BLOOD UREA NITROGEN 10 MG/DL (7-18); BUN/CREATININE RATIO 15.9 (6.6-38.0); CALCIUM 8.9 MG/DL (8.5-10.1); CHLORIDE 103 MMOL/L (99-107); CREATININE 0.63 MG/DL (0.40-0.90); GLUCOSE 93 MG/DL (70-104); SODIUM 137 MMOL/L (135-145); TOTAL CARBON DIOXIDE 27.3 MMOL/L (24-32); TOTAL PROTEIN 6.4 G/DL (6.4-8.2); eGFR > 90 ML/MIN
[2022-03-21] MEDS: aspirin 81mg tab.chew PO SCH (07:39)
[2022-03-21] MEDS: amantadine 100 MG capsule PO SCH ×2 (07:39→14:05)
[2022-03-21] MEDS: levetiracetam 250mg tablet PO SCH (07:40)
[2022-03-21] MEDS: atorvastatin 20mg tablet PO SCH (07:40)
[2022-03-21] MEDS: propranolol 10mg tablet PO SCH (07:40)
[2022-03-21] MEDS: docusate sod 100mg capsule PO SCH (07:42)
[2022-03-21] MEDS ORDERED: heparin, porcine 5000 units/ml vial SQ SCH (08:00)
[2022-03-21] MEDS ORDERED: busPIRone 15mg tablet PO SCH (08:00)
[2022-03-21] MEDS ORDERED: LACOSAMIDE PO SCH (08:00)
[2022-03-21] MEDS: K and/or MAG REPLACEMENT MC SCH (08:00)
[2022-03-21 11:00] VITALS: BP 112/65
--- NOTE | 2022-03-21 13:47 | NUR ---
Page Accepted promotional table spacer Message: SCOTT ROBYadiel HURTADO RM [id number] FAMILY ASKING ABOUT DISCHARGE ORDER STATUS THANK YOU, DEANNA KAUR
[2022-03-21] MEDS ORDERED: PROP10TA10 PO (13:58)
[2022-03-21] MEDS ORDERED: ASPI81TA53 PO (13:58)
[2022-03-21] MEDS ORDERED: LACO100T2 PO (13:58)
[2022-03-21] MEDS ORDERED: amitriptyline 25mg tablet PO SCH (21:00)
[2022-03-21] MEDS ORDERED: gabapentin 300mg capsule PO SCH (21:00)
== END 2022-03-21 15:10 | disposition home or self-care (01) | DRG 100 ==
LOC: ER 21:04 → ED HOLD 03-19 06:26 → PCU 3S 03-19 15:58
PROVIDERS: ADMIT Internal Medicine; ATTEND Family Medicine
PROC: B3251ZZ Computerized Tomography (CT Scan) of Bilateral Common Carotid Arteries using Low Osmolar Contrast (ICD-10-PCS; principal; 2022-03-19)
PROC: B32R1ZZ Computerized Tomography (CT Scan) of Intracranial Arteries using Low Osmolar Contrast (ICD-10-PCS; 2022-03-19)
PROC: B3281ZZ Computerized Tomography (CT Scan) of Bilateral Internal Carotid Arteries using Low Osmolar Contrast (ICD-10-PCS; 2022-03-19)
PROC: 4A02XM4 Measurement of Cardiac Total Activity, External Approach (ICD-10-PCS; 2022-03-20)
PROC: 3E033HZ Introduction of Radioactive Substance into Peripheral Vein, Percutaneous Approach (ICD-10-PCS; 2022-03-20)
DX: G40.89 Other seizures (principal); I21.A1 Myocardial infarction type 2; R47.01 Aphasia; I10 Essential (primary) hypertension; E03.9 Hypothyroidism, unspecified; F32.A Depression, unspecified; F41.9 Anxiety disorder, unspecified; R77.8 Other specified abnormalities of plasma proteins; Z82.0 Family history of epilepsy and other diseases of the nervous system; Z88.8 Allergy status to other drugs, medicaments and biological substances; Z79.899 Other long term (current) drug therapy
CPT/HCPCS: 36415; 70450; 70496; 70498; 70551; 71045; 78452; 80053; 80061; 81003; 82140; 82948; 83036; 83605; 83735; 84132; 84146; 84439; 84443; 84484; 85025; 85610; 85730; 87081; 93017; 93306; 95816; 99285; A6449; A9500; G0378; J1644; J1953; J2060; J2270; J2785; J3490; Q9967

== ENCOUNTER 2022-05-25 19:57 | Emergency (ER) | payer MEDICARE, MEDICAID ==
[~2022-05-25] VITALS: Ht 157.5 cm; Wt 63.6 kg
[~2022-05-25 19:57] MED LIST changes: +AMAN100C20 PO; +AMIT75TA7 PO; +ASPI81TA53 PO; -CARV3.1244 PO; -GABA-532 PO; +GABA300C PO; +HYDR50TA65 PO; +LACO100T2 PO; -LEVE250T PO; +LEVE750T PO; -LEVO25TA2 PO; -LURA60TA PO; +PROP10TA10 PO; -QUET25TA36 PO; +TOPI50TA24 PO
[2022-05-25] MEDS ORDERED: levetiracetam inj 1,000 MG in normal saline 100ml IV soln 90 ML IV STA (20:12)
[2022-05-25] MEDS ORDERED: levetiracetam inj 1,000 MG in normal saline 100ml IV soln 100 ML IV STA (20:22)
[2022-05-25 20:43] LABS: BASOPHILS % (AUTO) 0.5 % (0-1); EOSINOPHILS % (AUTO) 0.3 % (0-6); HEMATOCRIT 38.4 % (35.0-45.0); HEMOGLOBIN 12.8 g/dl (12.0-16.0); LYMPHOCYTES # (AUTO) 0.7 X10'3 (1.1-4.8); MEAN CORPUSCULAR HEMOGLOBIN 30.3 PG (27.0-31.0); MEAN CORPUSCULAR HGB CONC 33.4 g/dL (33.0-36.5); MEAN CORPUSCULAR VOLUME 90.9 FL (78-98); MEAN PLATELET VOLUME 6.9 FL (7.4-10.4); MONOCYTES # (AUTO) 0.4 X10'3 (0-0.9); MONOCYTES % (AUTO) 6.5 % (2-12); NEUTROPHILS # (AUTO) 5.7 X10'3 (1.8-7.7); NEUTROPHILS % (AUTO) 82.7 % (42-75); PLATELET COUNT 272 X10'3 (140-440); RED BLOOD COUNT 4.22 X10'6 (4.20-5.60); RED CELL DISTRIBUTION WIDTH 13.2 % (11.5-14.5); WHITE BLOOD COUNT 6.9 X10'3 (4.5-11.0)
[2022-05-25 21:00] LABS: ALBUMIN 3.8 G/DL (3.4-5.0); ANION GAP 7 (8-16); BILIRUBIN,TOTAL 0.1 MG/DL (0.1-1.0); BLOOD UREA NITROGEN 12 MG/DL (7-18); BUN/CREATININE RATIO 15.2 (6.6-38.0); CALCIUM 8.4 MG/DL (8.5-10.1); CHLORIDE 102 MMOL/L (99-107); CREATININE 0.79 MG/DL (0.40-0.90); GLUCOSE 100 MG/DL (70-104); POTASSIUM 4.4 MMOL/L (3.5-5.1); SODIUM 137 MMOL/L (135-145); TOTAL CARBON DIOXIDE 28.3 MMOL/L (24-32); TOTAL PROTEIN 6.7 G/DL (6.4-8.2); eGFR 74 ML/MIN
[2022-05-25 21:01] LABS: ALANINE AMINOTRANSFERASE 17 U/L (12-78); ALBUMIN/GLOBULIN RATIO 1.3 (1.1-1.5); ALKALINE PHOSPHATASE 77 IU/L (46-116); ASPARTATE AMINO TRANSFERASE 12 U/L (10-37)
[2022-05-25 21:57] VITALS: BP 160/87
== END 2022-05-25 21:58 | disposition home or self-care (01) ==
LOC: ER 19:58
DX: R56.9 Unspecified convulsions (principal); R51.9 Headache, unspecified; F41.9 Anxiety disorder, unspecified; F32.A Depression, unspecified; Z86.69 Personal history of other diseases of the nervous system and sense organs; Z87.01 Personal history of pneumonia (recurrent); Z88.8 Allergy status to other drugs, medicaments and biological substances; Z79.82 Long term (current) use of aspirin; Z79.899 Other long term (current) drug therapy
CPT/HCPCS: 36415; 80053; 85025; 93005; 96365; 99284; J1953; J3490

== ENCOUNTER 2022-06-01 22:01 | Emergency (ER) | payer MEDICARE, MEDICAID ==
[~2022-06-01] VITALS: Ht 157.5 cm; Wt 57.3 kg
[2022-06-01 22:09] VITALS: BP 126/66
== END 2022-06-02 01:41 | disposition left against medical advice (07) ==
LOC: ER 22:01
DX: M79.601 Pain in right arm (principal); Z53.21 Procedure and treatment not carried out due to patient leaving prior to being seen by health care provider
CPT/HCPCS: 93005

== ENCOUNTER 2022-06-26 21:03 | Emergency (ER) | payer MEDICARE, MEDICAID ==
[~2022-06-26] VITALS: Ht 157.5 cm; Wt 56.8 kg
[2022-06-26] MEDS ORDERED: normal saline 1000ML IV soln IVB ONE (21:45)
[2022-06-26 22:20] LABS: BASOPHILS % (AUTO) 0.5 % (0-1); EOSINOPHILS % (AUTO) 0.1 % (0-6); HEMATOCRIT 45.2 % (35.0-45.0); HEMOGLOBIN 15.3 g/dl (12.0-16.0); LYMPHOCYTES # (AUTO) 0.9 X10'3 (1.1-4.8); LYMPHOCYTES % (AUTO) 12.6 % (21-51); MEAN CORPUSCULAR HEMOGLOBIN 30.7 PG (27.0-31.0); MEAN CORPUSCULAR HGB CONC 33.8 g/dL (33.0-36.5); MEAN CORPUSCULAR VOLUME 90.9 FL (78-98); MEAN PLATELET VOLUME 6.8 FL (7.4-10.4); MONOCYTES # (AUTO) 0.5 X10'3 (0-0.9); MONOCYTES % (AUTO) 6.5 % (2-12); NEUTROPHILS % (AUTO) 80.3 % (42-75); PLATELET COUNT 279 X10'3 (140-440); RED BLOOD COUNT 4.97 X10'6 (4.20-5.60); RED CELL DISTRIBUTION WIDTH 13.2 % (11.5-14.5); WHITE BLOOD COUNT 7.5 X10'3 (4.5-11.0)
[2022-06-26 22:20] LABS: CLARITY,URINE CLEAR (Clear); GLUCOSE, URINE NEGATIVE (Neg); KETONES,URINE NEGATIVE (Neg); LEUKOCYTE ESTERASE ,URINE NEGATIVE (Neg); NITRITES, URINE NEGATIVE (Neg); OCCULT BLOOD,URINE NEGATIVE (Neg); PH,URINE 8.5 (4.8-8.0); PROTEIN,URINE NEGATIVE (Neg); UROBILINOGEN,URINE 0.2 E.U/dL (0.2-1.0)
[2022-06-26 22:26] LABS: COLOR,URINE STRAW (Yellow); UA COLLECTION TYPE NON-SPECIFIED
[2022-06-26 22:31] LABS: ALANINE AMINOTRANSFERASE 19 U/L (12-78); ALBUMIN 4.5 G/DL (3.4-5.0); ALBUMIN/GLOBULIN RATIO 1.3 (1.1-1.5); ALKALINE PHOSPHATASE 121 IU/L (46-116); ANION GAP 9 (8-16); ASPARTATE AMINO TRANSFERASE 14 U/L (10-37); BILIRUBIN,TOTAL 0.2 MG/DL (0.1-1.0); BLOOD UREA NITROGEN 5 MG/DL (7-18); BUN/CREATININE RATIO 5.3 (6.6-38.0); CALCIUM 9.7 MG/DL (8.5-10.1); CHLORIDE 100 MMOL/L (99-107); CREATININE 0.94 MG/DL (0.40-0.90); GLUCOSE 94 MG/DL (70-104); POTASSIUM 4.8 MMOL/L (3.5-5.1); SODIUM 138 MMOL/L (135-145); TOTAL CARBON DIOXIDE 28.8 MMOL/L (24-32); TOTAL PROTEIN 8.1 G/DL (6.4-8.2); eGFR 61 ML/MIN
[2022-06-26 22:39] LABS: ETHANOL < 0.010 GM/DL (0.0-0.010)
[2022-06-26 22:41] LABS: URINE AMPHETAMINE SCREEN NEGATIVE (Neg); URINE BARBITUATE SCREEN NEGATIVE (Neg); URINE BENZODIAZEPINES SCREEN NEGATIVE (Neg); URINE CANNABINOID SCREEN NEGATIVE (Neg); URINE COCAINE SCREEN NEGATIVE (Neg); URINE METHADONE SCREEN NEGATIVE (Neg); URINE OPIATE SCREEN NEGATIVE (Neg); URINE PHENCYCLIDINE SCREEN NEGATIVE (Neg)
[2022-06-26] MEDS ORDERED: levetiracetam inj 1,000 MG in normal saline 100ml IV soln 90 ML IV STA (22:50)
[2022-06-26] MEDS ORDERED: levetiracetam inj 1,000 MG in normal saline 100ml IV soln 100 ML IV STA (23:10)
[2022-06-26 23:56] VITALS: BP 132/69
[2022-06-27] MEDS ORDERED: levetiracetam inj 1,000 MG in normal saline 100ml IV soln 90 ML IV SCH (08:00)
== END 2022-06-27 | disposition home or self-care (01) ==
LOC: ER 21:04
DX: R56.9 Unspecified convulsions (principal); F41.9 Anxiety disorder, unspecified; F32.A Depression, unspecified; Z86.69 Personal history of other diseases of the nervous system and sense organs; Z87.01 Personal history of pneumonia (recurrent); Z88.8 Allergy status to other drugs, medicaments and biological substances; Z79.82 Long term (current) use of aspirin; Z79.899 Other long term (current) drug therapy
CPT/HCPCS: 36415; 70450; 80053; 80177; 80305; 80320; 81003; 85025; 93005; 96361; 96374; 99285; J1953; J3490; J7030

== ENCOUNTER 2022-07-22 20:48 | Emergency (ER) | payer MEDICARE, MEDICAID ==
[~2022-07-22] VITALS: Ht 157.5 cm; Wt 54.6 kg
[2022-07-22] MEDS ORDERED: levetiracetam inj 1,000 MG in normal saline 100ml IV soln 90 ML IV ONE (22:45)
[2022-07-22] MEDS ORDERED: normal saline 1000ml 1,000 ML IV ONE (22:45)
[2022-07-22] MEDS ORDERED: levetiracetam inj 1,000 MG in normal saline 100ml IV soln 100 ML IV ONE (22:49)
[2022-07-22 22:59] LABS: CLARITY,URINE CLEAR (Clear); GLUCOSE, URINE NEGATIVE (Neg); KETONES,URINE NEGATIVE (Neg); LEUKOCYTE ESTERASE ,URINE NEGATIVE (Neg); NITRITES, URINE NEGATIVE (Neg); OCCULT BLOOD,URINE NEGATIVE (Neg); PROTEIN,URINE NEGATIVE (Neg); UROBILINOGEN,URINE 0.2 E.U/dL (0.2-1.0)
[2022-07-22 23:09] LABS: COLOR,URINE STRAW (Yellow); UA COLLECTION TYPE CLN CATCH MIDSTREAM
[2022-07-22 23:10] LABS: BASOPHILS % (AUTO) 0.5 % (0-1); EOSINOPHILS # (AUTO) 0.1 X10'3 (0-0.9); EOSINOPHILS % (AUTO) 0.6 % (0-6); HEMATOCRIT 43.3 % (35.0-45.0); HEMOGLOBIN 14.6 g/dl (12.0-16.0); LYMPHOCYTES # (AUTO) 0.9 X10'3 (1.1-4.8); LYMPHOCYTES % (AUTO) 11.3 % (21-51); MEAN CORPUSCULAR HEMOGLOBIN 29.9 PG (27.0-31.0); MEAN CORPUSCULAR HGB CONC 33.7 g/dL (33.0-36.5); MEAN CORPUSCULAR VOLUME 88.8 FL (78-98); MEAN PLATELET VOLUME 6.6 FL (7.4-10.4); MONOCYTES # (AUTO) 0.4 X10'3 (0-0.9); MONOCYTES % (AUTO) 4.5 % (2-12); NEUTROPHILS # (AUTO) 6.9 X10'3 (1.8-7.7); NEUTROPHILS % (AUTO) 83.1 % (42-75); PLATELET COUNT 337 X10'3 (140-440); RED BLOOD COUNT 4.88 X10'6 (4.20-5.60); WHITE BLOOD COUNT 8.3 X10'3 (4.5-11.0)
[2022-07-22 23:50] LABS: ALANINE AMINOTRANSFERASE 22 U/L (12-78); ALBUMIN/GLOBULIN RATIO 1.1 (1.1-1.5); ALKALINE PHOSPHATASE 109 IU/L (46-116); ANION GAP 6 (8-16); ASPARTATE AMINO TRANSFERASE 15 U/L (10-37); BILIRUBIN,TOTAL 0.2 MG/DL (0.1-1.0); BLOOD UREA NITROGEN 7 MG/DL (7-18); BUN/CREATININE RATIO 8.5 (6.6-38.0); CALCIUM 9.3 MG/DL (8.5-10.1); CHLORIDE 102 MMOL/L (99-107); CREATININE 0.82 MG/DL (0.40-0.90); GLUCOSE 88 MG/DL (70-104); POTASSIUM 4.3 MMOL/L (3.5-5.1); SODIUM 138 MMOL/L (135-145); TOTAL CARBON DIOXIDE 29.9 MMOL/L (24-32); TOTAL PROTEIN 7.6 G/DL (6.4-8.2); eGFR 71 ML/MIN
[2022-07-22 23:52] LABS: CREATINE KINASE 112 U/L (26-192)
[2022-07-23 01:04] VITALS: BP 128/84
== END 2022-07-23 01:06 | disposition home or self-care (01) ==
LOC: ER 20:49
DX: G40.909 Epilepsy, unspecified, not intractable, without status epilepticus (principal); Z88.6 Allergy status to analgesic agent; Z88.8 Allergy status to other drugs, medicaments and biological substances
CPT/HCPCS: 36415; 71045; 80053; 81003; 82550; 83735; 84484; 85025; 96365; 99284; J1953; J3490; J7030

== ENCOUNTER 2022-11-22 23:26 | Emergency (ER) | payer MEDICARE, MEDICAID ==
[~2022-11-22] VITALS: Ht 160 cm; Wt 56.8 kg
[~2022-11-22 23:26] MED LIST changes: +TOPI-253 PO; -TOPI50TA24 PO
[2022-11-22] MEDS ORDERED: LORazepam 2 mg/ml vial IV ONE (23:55)
[2022-11-23 00:14] LABS: BASOPHILS % (AUTO) 0.5 % (0-1); EOSINOPHILS % (AUTO) 0.2 % (0-6); HEMATOCRIT 38.2 % (35.0-45.0); HEMOGLOBIN 12.8 g/dl (12.0-16.0); LYMPHOCYTES # (AUTO) 0.7 X10'3 (1.1-4.8); LYMPHOCYTES % (AUTO) 8.9 % (21-51); MEAN CORPUSCULAR HEMOGLOBIN 30.2 PG (27.0-31.0); MEAN CORPUSCULAR HGB CONC 33.4 g/dL (33.0-36.5); MEAN CORPUSCULAR VOLUME 90.5 FL (78-98); MONOCYTES # (AUTO) 0.4 X10'3 (0-0.9); MONOCYTES % (AUTO) 5.1 % (2-12); NEUTROPHILS # (AUTO) 6.9 X10'3 (1.8-7.7); NEUTROPHILS % (AUTO) 85.3 % (42-75); PLATELET COUNT 312 X10'3 (140-440); RED BLOOD COUNT 4.22 X10'6 (4.20-5.60); RED CELL DISTRIBUTION WIDTH 13.9 % (11.5-14.5)
[2022-11-23 00:15] VITALS: BP 149/68
[2022-11-23 00:51] LABS: ALANINE AMINOTRANSFERASE 15 U/L (12-78); ALBUMIN 4.2 G/DL (3.4-5.0); ALBUMIN/GLOBULIN RATIO 1.3 (1.1-1.5); ALKALINE PHOSPHATASE 91 IU/L (46-116); ANION GAP 8 (8-16); ASPARTATE AMINO TRANSFERASE 19 U/L (10-37); BILIRUBIN,TOTAL 0.2 MG/DL (0.1-1.0); BLOOD UREA NITROGEN 8 MG/DL (7-18); BUN/CREATININE RATIO 8.9 (6.6-38.0); CALCIUM 9.2 MG/DL (8.5-10.1); CHLORIDE 105 MMOL/L (99-107); GLUCOSE 96 MG/DL (70-104); SODIUM 140 MMOL/L (135-145); TOTAL CARBON DIOXIDE 27.5 MMOL/L (24-32); TOTAL PROTEIN 7.4 G/DL (6.4-8.2); eGFR 64 ML/MIN
[2022-11-23] MEDS ORDERED: acetaminophen 325mg tablet PO ONE (01:00)
[2022-11-23] MEDS ORDERED: topiramate 100mg tablet PO ONE (02:15)
[2022-11-23] MEDS ORDERED: levetiracetam inj 750 MG in normal saline 100ml IV soln 100 ML IV ONE (02:17)
[2022-11-23] MEDS ORDERED: LEVE750T6 PO (02:19)
[2022-11-23] MEDS ORDERED: LACO200T2 PO (02:19)
[2022-11-23] MEDS ORDERED: TOPI25TA15 PO (02:19)
[2022-11-23] MEDS ORDERED: LACOSAMIDE 50 MG TABLET PO ONE (02:20)
== END 2022-11-23 03:09 | disposition home or self-care (01) ==
LOC: ER 23:27
DX: R56.9 Unspecified convulsions (principal); F31.9 Bipolar disorder, unspecified; Z88.8 Allergy status to other drugs, medicaments and biological substances; Z79.899 Other long term (current) drug therapy; Z79.1 Long term (current) use of non-steroidal anti-inflammatories (NSAID); Z79.2 Long term (current) use of antibiotics
CPT/HCPCS: 36415; 70450; 80053; 85025; 93005; 96365; 96375; 99285; J1953; J2060; J3490

== ENCOUNTER 2024-03-05 17:54 | Emergency (ER) | payer MEDICARE, MEDICAID ==
[~2024-03-05] VITALS: Ht 162.6 cm; Wt 50.0 kg
[~2024-03-05 17:54] MED LIST changes: +LACO200T2 PO; +LEVE750T6 PO; -TOPI-253 PO; +TOPI-95 PO; +TOPI25TA15 PO
[2024-03-05 18:44] LABS: BASOPHILS % (AUTO) 0.4 % (0-1); EOSINOPHILS % (AUTO) 0.1 % (0-6); HEMATOCRIT 42.8 % (35.0-45.0); HEMOGLOBIN 14.3 g/dl (12.0-16.0); LYMPHOCYTES % (AUTO) 10.9 % (21-51); MEAN CORPUSCULAR HEMOGLOBIN 30.3 PG (27.0-31.0); MEAN CORPUSCULAR HGB CONC 33.5 g/dL (33.0-36.5); MEAN CORPUSCULAR VOLUME 90.5 FL (78-98); MEAN PLATELET VOLUME 7.2 FL (7.4-10.4); MONOCYTES # (AUTO) 0.5 X10'3 (0-0.9); MONOCYTES % (AUTO) 5.1 % (2-12); NEUTROPHILS # (AUTO) 7.8 X10'3 (1.8-7.7); NEUTROPHILS % (AUTO) 83.5 % (42-75); PLATELET COUNT 291 X10'3 (140-440); RED BLOOD COUNT 4.73 X10'6 (4.20-5.60); RED CELL DISTRIBUTION WIDTH 13.4 % (11.5-14.5); WHITE BLOOD COUNT 9.3 X10'3 (4.5-11.0)
[2024-03-05 18:55] LABS: ALANINE AMINOTRANSFERASE 19 U/L (12-78); ALBUMIN 4.3 G/DL (3.4-5.0); ALBUMIN/GLOBULIN RATIO 1.1 (1.1-1.5); ALKALINE PHOSPHATASE 105 IU/L (46-116); ANION GAP 8 (8-16); ASPARTATE AMINO TRANSFERASE 12 U/L (10-37); BILIRUBIN,DIRECT 0.1 MG/DL (0-0.3); BILIRUBIN,TOTAL 0.3 MG/DL (0.1-1.0); BLOOD UREA NITROGEN 21 MG/DL (7-18); BUN/CREATININE RATIO 23.1 (10.0-20.0); CALCIUM 9.8 MG/DL (8.5-10.1); CHLORIDE 103 MMOL/L (99-107); CREATININE 0.91 MG/DL (0.40-0.90); ETHANOL < 10 MG/DL (<10); GLUCOSE 114 MG/DL (70-104); LIPASE 28 U/L (16-77); POTASSIUM 4.3 MMOL/L (3.5-5.1); SODIUM 140 MMOL/L (135-145); TOTAL CARBON DIOXIDE 29.2 MMOL/L (24-32); TOTAL PROTEIN 8.2 G/DL (6.4-8.2); eCRCL 51 ML/MIN; eGFR 63 ML/MIN
[2024-03-05 19:23] LABS: BILIRUBIN,URINE NEGATIVE (Neg); CLARITY,URINE CLEAR (Clear); COLOR,URINE STRAW (Yellow); GLUCOSE, URINE NEGATIVE (Neg); KETONES,URINE NEGATIVE (Neg); LEUKOCYTE ESTERASE ,URINE NEGATIVE (Neg); NITRITES, URINE NEGATIVE (Neg); OCCULT BLOOD,URINE NEGATIVE (Neg); PROTEIN,URINE NEGATIVE (Neg); UROBILINOGEN,URINE 0.2 E.U/dL (0.2-1.0)
[2024-03-05 19:29] LABS: UA COLLECTION TYPE URINAL
[2024-03-05 19:44] LABS: URINE AMPHETAMINE SCREEN NEGATIVE (Neg); URINE BARBITUATE SCREEN NEGATIVE (Neg); URINE BENZODIAZEPINES SCREEN NEGATIVE (Neg); URINE CANNABINOID SCREEN NEGATIVE (Neg); URINE COCAINE SCREEN NEGATIVE (Neg); URINE METHADONE SCREEN NEGATIVE (Neg); URINE OPIATE SCREEN NEGATIVE (Neg); URINE PHENCYCLIDINE SCREEN NEGATIVE (Neg)
[2024-03-05] MEDS: ringers solution, lacted 1,000 ML IV ONE (19:44)
[2024-03-05] MEDS ORDERED: GABA300C (20:44)
[2024-03-05] MEDS ORDERED: MIRT-87 PO (20:44)
[2024-03-05] MEDS ORDERED: LACO100T4 PO (20:44)
[2024-03-05] MEDS ORDERED: LACO50TA6 (20:44)
[2024-03-05 22:26] LABS: MAGNESIUM 2.2 MG/DL (1.5-2.4)
[2024-03-05] MEDS ORDERED: TOPI-95 PO (23:02)
[2024-03-05] MEDS: gabapentin 300mg capsule PO ONE (23:03)
[2024-03-05] MEDS: levetiracetam 250mg tablet PO ONE (23:03)
[2024-03-05] MEDS: topiramate 25mg tablet PO ONE (23:03)
[2024-03-05 23:45] VITALS: BP 153/74; PULSE 87; RESP 14; TEMP 98; O2SAT 98
[2024-03-06] MEDS ORDERED: LACOSAMIDE 50 MG TABLET PO SCH ×2 (08:00)
== END 2024-03-05 23:47 | disposition home or self-care (01) ==
LOC: ER 17:54
DX: G40.909 Epilepsy, unspecified, not intractable, without status epilepticus (principal); F41.9 Anxiety disorder, unspecified; F32.A Depression, unspecified; Z88.8 Allergy status to other drugs, medicaments and biological substances; Z79.82 Long term (current) use of aspirin; Z79.899 Other long term (current) drug therapy
CPT/HCPCS: 36415; 70450; 80048; 80076; 80177; 80305; 81003; 83605; 83690; 83735; 85025; 96360; 99285; G0480; J7120; 80320

== ENCOUNTER 2024-04-28 22:13 | Emergency (ER) | payer MEDICARE, MEDICAID ==
[~2024-04-28] VITALS: Ht 154.9 cm; Wt 44.1 kg
[~2024-04-28 22:13] MED LIST changes: +GABA300C; +LACO100T4 PO; +LACO50TA6; +MIRT-87 PO; -TOPI25TA15 PO
[2024-04-29] MEDS: TETanus/Pertussis (Acell)/Diphther VAC/PF (Tdap-Adult) 0.5ml syringe IMVAC ONE (01:12)
[2024-04-29 03:40] VITALS: BP 109/74; PULSE 77; RESP 15; TEMP 97.7; O2SAT 98
== END 2024-04-29 03:42 | disposition home or self-care (01) ==
LOC: ER 22:14
DX: S51.011A Laceration without foreign body of right elbow, initial encounter (principal); S00.11XA Contusion of right eyelid and periocular area, initial encounter; G40.909 Epilepsy, unspecified, not intractable, without status epilepticus; I10 Essential (primary) hypertension; F41.9 Anxiety disorder, unspecified; F32.A Depression, unspecified; F17.210 Nicotine dependence, cigarettes, uncomplicated; Z88.8 Allergy status to other drugs, medicaments and biological substances; Z79.899 Other long term (current) drug therapy; Z79.82 Long term (current) use of aspirin; Z79.2 Long term (current) use of antibiotics; W19.XXXA Unspecified fall, initial encounter; Y93.89 Activity, other specified; Y92.89 Other specified places as the place of occurrence of the external cause; Y99.8 Other external cause status
CPT/HCPCS: 70450; 90715; 99285; G0008; 90471

== ENCOUNTER 2024-05-06 19:58 | Emergency (ER) | payer MEDICARE, MEDICAID ==
[~2024-05-06] VITALS: Ht 157.5 cm; Wt 54.8 kg
[2024-05-06 20:00] VITALS: TEMP 99.1
[2024-05-06 20:57] LABS: BASOPHILS % (AUTO) 0.6 % (0-1); EOSINOPHILS % (AUTO) 0.6 % (0-6); HEMATOCRIT 36.1 % (35.0-45.0); HEMOGLOBIN 12.1 g/dl (12.0-16.0); LYMPHOCYTES # (AUTO) 0.8 X10'3 (1.1-4.8); MEAN CORPUSCULAR HEMOGLOBIN 29.7 PG (27.0-31.0); MEAN CORPUSCULAR HGB CONC 33.4 g/dL (33.0-36.5); MEAN CORPUSCULAR VOLUME 88.9 FL (78-98); MEAN PLATELET VOLUME 6.5 FL (7.4-10.4); MONOCYTES # (AUTO) 0.6 X10'3 (0-0.9); MONOCYTES % (AUTO) 7.3 % (2-12); NEUTROPHILS # (AUTO) 6.2 X10'3 (1.8-7.7); NEUTROPHILS % (AUTO) 81.5 % (42-75); PLATELET COUNT 345 X10'3 (140-440); RED BLOOD COUNT 4.06 X10'6 (4.20-5.60); WHITE BLOOD COUNT 7.6 X10'3 (4.5-11.0)
[2024-05-06] MEDS: levetiracetam inj 1,500 MG in normal saline 100ml IV soln 100 ML IV ONE (21:07)
[2024-05-06 21:10] LABS: ALANINE AMINOTRANSFERASE 21 U/L (12-78); ALBUMIN 3.5 G/DL (3.4-5.0); ALBUMIN/GLOBULIN RATIO 1.1 (1.1-1.5); ALKALINE PHOSPHATASE 95 IU/L (46-116); ANION GAP 6 (8-16); ASPARTATE AMINO TRANSFERASE 21 U/L (10-37); BILIRUBIN,TOTAL 0.3 MG/DL (0.1-1.0); BLOOD UREA NITROGEN 13 MG/DL (7-18); BUN/CREATININE RATIO 18.3 (10.0-20.0); CALCIUM 8.8 MG/DL (8.5-10.1); CHLORIDE 91 MMOL/L (99-107); CREATININE 0.71 MG/DL (0.40-0.90); GLUCOSE 109 MG/DL (70-104); SODIUM 126 MMOL/L (135-145); TOTAL CARBON DIOXIDE 29.3 MMOL/L (24-32); TOTAL PROTEIN 6.8 G/DL (6.4-8.2); eCRCL 65 ML/MIN; eGFR 83 ML/MIN
[2024-05-06 21:46] VITALS: BP 146/74; PULSE 86; RESP 18; O2SAT 100
[2024-05-06] MEDS: normal saline 1000ml 1,000 ML IV ONE (22:18)
== END 2024-05-06 22:31 | disposition home or self-care (01) ==
LOC: ER 19:59
DX: G40.802 Other epilepsy, not intractable, without status epilepticus (principal); F03.90 Unspecified dementia, unspecified severity, without behavioral disturbance, psychotic disturbance, mood disturbance, and anxiety; I10 Essential (primary) hypertension; F41.9 Anxiety disorder, unspecified; F32.A Depression, unspecified; Z88.8 Allergy status to other drugs, medicaments and biological substances; Z79.899 Other long term (current) drug therapy; Z79.82 Long term (current) use of aspirin
CPT/HCPCS: 36415; 80053; 85025; 96365; 99284; J1953; J7030; 96361

== ENCOUNTER 2024-09-16 21:42 | Emergency (ER) | payer MEDICARE, MEDICAID ==
[~2024-09-16] VITALS: Ht 154.9 cm; Wt 59.0 kg
[2024-09-16 21:45] VITALS: TEMP 99.2
[2024-09-16] MEDS ORDERED: levetiracetam inj 1,000 MG in normal saline 100ml IV soln 100 ML IV STA (21:48)
[2024-09-16] MEDS: levetiracetam-NACL1000mg/100ml 100 ML IV STA (22:11)
[2024-09-16] MEDS: LORazepam 2 mg/ml vial IV ONE (22:16)
[2024-09-16 22:22] LABS: BILIRUBIN,URINE NEGATIVE (Neg); CLARITY,URINE CLEAR (Clear); COLOR,URINE YELLOW (Yellow); GLUCOSE, URINE NEGATIVE (Neg); KETONES,URINE NEGATIVE (Neg); LEUKOCYTE ESTERASE ,URINE NEGATIVE (Neg); NITRITES, URINE NEGATIVE (Neg); OCCULT BLOOD,URINE TRACE-INTACT (Neg); PROTEIN,URINE NEGATIVE (Neg); UROBILINOGEN,URINE 0.2 E.U/dL (0.2-1.0)
[2024-09-16 22:24] LABS: UA COLLECTION TYPE VOIDED
[2024-09-16 22:27] LABS: RBC,URINE 0-2 /HPF (0-2); WBC,URINE NONE SEEN /HPF (0-4)
[2024-09-16 22:28] LABS: BACTERIA,URINE NONE SEEN /HPF (Neg); SQUAMOUS EPITHELIAL CELL,UR NONE SEEN /LPF (FEW)
[2024-09-16 22:42] LABS: BASOPHILS % (AUTO) 0.3 % (0-1); EOSINOPHILS % (AUTO) 0 % (0-6); HEMOGLOBIN 13.3 g/dl (12.0-16.0); LYMPHOCYTES # (AUTO) 0.8 X10'3 (1.1-4.8); LYMPHOCYTES % (AUTO) 8.8 % (21-51); MEAN CORPUSCULAR HEMOGLOBIN 30.4 PG (27.0-31.0); MEAN CORPUSCULAR VOLUME 86.9 FL (78-98); MEAN PLATELET VOLUME 6.4 FL (7.4-10.4); MONOCYTES # (AUTO) 0.6 X10'3 (0-0.9); MONOCYTES % (AUTO) 7.1 % (2-12); NEUTROPHILS # (AUTO) 7.4 X10'3 (1.8-7.7); NEUTROPHILS % (AUTO) 83.8 % (42-75); PLATELET COUNT 352 X10'3 (140-440); RED BLOOD COUNT 4.37 X10'6 (4.20-5.60); WHITE BLOOD COUNT 8.8 X10'3 (4.5-11.0)
[2024-09-16 22:47] LABS: ANION GAP 5 (8-16); BLOOD UREA NITROGEN 11 MG/DL (7-18); BUN/CREATININE RATIO 13.3 (10.0-20.0); CALCIUM 8.6 MG/DL (8.5-10.1); CHLORIDE 97 MMOL/L (99-107); CREATININE 0.83 MG/DL (0.40-0.90); GLUCOSE 100 MG/DL (70-104); SODIUM 130 MMOL/L (135-145); TOTAL CARBON DIOXIDE 27.8 MMOL/L (24-32); eCRCL 53 ML/MIN; eGFR 70 ML/MIN
[2024-09-16 23:32] VITALS: BP 160/67; PULSE 93; RESP 12; O2SAT 96
== END 2024-09-16 23:39 | disposition home or self-care (01) ==
LOC: ER 21:43
DX: R56.9 Unspecified convulsions (principal); I10 Essential (primary) hypertension; F03.94 Unspecified dementia, unspecified severity, with anxiety; F32.A Depression, unspecified; Z88.8 Allergy status to other drugs, medicaments and biological substances
CPT/HCPCS: 36415; 80048; 81001; 85025; 96374; 96375; 99284; J1953; J2060

== ENCOUNTER 2025-05-08 19:58 | Emergency (ER) | payer MEDICARE, MEDICAID ==
[~2025-05-08] VITALS: Ht 165.1 cm; Wt 66.0 kg
[~2025-05-08 19:58] MED LIST changes: -AMAN100C20 PO; +AMLO10TA PO; +ESLI800T PO; -GABA300C PO; -LACO100T2 PO; -LACO100T4 PO; -LACO200T2 PO; -LACO50TA6; -LEVE750T6 PO; +MELA5CAP PO; -PROP10TA10 PO; -TOPI-95 PO; -VILA20TA PO; +[UNRECOGNIZED DRUG - CODE] PO
[2025-05-08 20:44] LABS: LEUKOCYTE ESTERASE ,URINE NEGATIVE (Neg); NITRITES, URINE NEGATIVE (Neg); OCCULT BLOOD,URINE NEGATIVE (Neg)
[2025-05-08 20:51] LABS: UA COLLECTION TYPE NON-SPECIFIED
[2025-05-08 20:52] LABS: MEAN PLATELET VOLUME 5.7 FL (7.4-10.4); RED CELL DISTRIBUTION WIDTH 14.3 % (11.5-14.5)
[2025-05-08 20:53] LABS: URINE AMPHETAMINE SCREEN NEGATIVE (Neg); URINE BARBITUATE SCREEN NEGATIVE (Neg); URINE BENZODIAZEPINES SCREEN NEGATIVE (Neg); URINE CANNABINOID SCREEN NEGATIVE (Neg); URINE COCAINE SCREEN NEGATIVE (Neg); URINE METHADONE SCREEN NEGATIVE (Neg); URINE OPIATE SCREEN NEGATIVE (Neg); URINE PHENCYCLIDINE SCREEN NEGATIVE (Neg)
[2025-05-08 21:03] LABS: CREATININE 0.74 MG/DL (0.40-0.90); TOTAL CARBON DIOXIDE 30.2 MMOL/L (24-32); eCRCL 70 ML/MIN; eGFR 79 ML/MIN
--- NOTE | 2025-05-08 21:17 | RADIOLOGY REPORT ---
CT CT HEAD INDICATION: S/P Seizure COMPARISON: CT CTA NECK/HEAD on DOS: 03/12/25, CT CT HEAD on DOS: 03/12/25, CT CT HEAD on DOS: 04/29/24, CT CT HEAD on DOS: 03/05/24, CT HEAD on DOS: 11/22/22 TECHNIQUE: CT of the head without intravenous contrast. RADIATION DOSE: CTDIvol: 56 mGy, DLP: 996 mGy*cm FINDINGS: There is no evidence of acute intracranial hemorrhage, extra-axial collection, mass effect, midline s hift, herniation or hydrocephalus. The ventricles, sulci and cisterns are age appropriate. The ventura -white differentiation is intact. The visualized paranasal sinuses and mastoid air cells are clear. The surrounding soft tissues and osseous structures are unremarkable. IMPRESSION: 1. No evidence of acute intracranial hemorrhage, mass effect or hydrocephalus.
[2025-05-08 22:46] VITALS: BP 141/64; PULSE 85; RESP 20; TEMP 98.9; O2SAT 97
--- NOTE | 2025-05-09 00:24 | Physician Documentation ---
History of Present Illness ~ Chief Complaint: Seizure Stated Complaint: SEIZURE Time Seen by MD: 00:23 Primary Medical Doctor: MIKKI AT [facility] Mode of Arrival: EMS, Stretcher HPI Patient presents to the emergency room status post seizure episode. Patient reports history of multiple different types of seizures from tonic-clonic to pseudoseizures. Partner at bedside does state that patient has anxiety problems and also eating disorder where she will binge and purge and drink tons of water or eat tons of chocolate. She states that her electrolytes often and get deranged from this. Currently the patient states the only problem she has a she is nervous. Partner reports that this is typical for her after having a seizure and that typically when they treat with Ativan and she returns to baseline. Medication Reconciliation Allergies: Coded Allergies: phenytoin (Verified Allergy, Severe, 05/08/25) Scheduled Amantadine Hcl (Amantadine), 1 CAP PO TID, (Reported) Amitriptyline HCl (Amitriptyline HCl), 1 TAB PO HS, (Reported) Amlodipine Besylate (Amlodipine Besylate), 1 TABLET PO DAILY Aspirin (Children's Aspirin), 81 MG PO DAILY@0830 Buspirone HCl (Buspirone HCl), 1 TAB PO BID, (Reported) Eslicarbazepine Acetate (Aptiom), 1 TAB PO HS, (Reported) Gabapentin (Neurontin), 4 HS, (Reported) Levetiracetam (Levetiracetam), 2 TAB PO BID, (Reported) Melatonin (Melatonin), 1 CAP PO HS Mirtazapine (Mirtazapine), 1 TAB PO HS, (Reported) Scheduled PRN Hydroxyzine HCl (Hydroxyzine HCl), 1 TAB PO BID PRN for anxiety, (Reported) Past Medical History Past Medical History: Dementia, Seizures, Arrhythmia, Hypertension, Pneumonia, Anxiety, Depression Past Surgical History: noncontributory Patient History: Seizure disorder Paternal grandmother Alcohol Use: Sober Drug Use: none Lives with: Family Lives In: Home Review of Systems ROS All review of systems negative except as per HPI Physical Exam Vital Signs: Temperature: 98.9, Source: Oral, Heart Rate: 85, Respiratory Rate: 20, BP: 141/64, Pulse Oximetry: 97, Weight: 66.000 Oxygen Flow Rate: 0 Physical Exam General: Patient is awake, alert, oriented x4 in no acute distress. Anxious Head: Normocephalic and atraumatic. Eyes: Conjunctival normal. EOMI. PERRL. ENT: Mucous membranes moist. Neck: Supple, trachea is midline. Chest: Clear to auscultation bilaterally without rales, rhonchi, or wheezes. There is no accessory muscle use or retractions. Cardiac: RRR without murmurs, gallops, or rubs. Neuro: Cranial nerves II-XII grossly intact. No focal neuro deficits. Progress Results/Orders Results/Orders Orders - ROMÁN KNAPP MD Ct Head (05/08/25 20:35) Completed Orders - ROMÁN KNAPP MD Cbc/Diff (05/08/25 20:25) CMP (05/08/25 20:25) Urinalysis (05/08/25 20:25) Ct Head (05/08/25 20:35) Drug Screen, Urine (05/08/25 20:25) Vital Signs 05/08/25 05/08/25 05/08/25 05/08/25 20:05 20:33 22:46 23:35 Temp 98.9 98.9 98.9 Pulse 97 92 85 Resp 18 12 20 B/P (MAP) 174/86 165/73 (103) 141/64 (89) Pulse Ox 99 99 97 O2 Flow Rate 0 0 0 Laboratory Tests Test 05/08/25 20:30 05/08/25 20:40 Urine Specimen Description Non-specified Urine Color Yellow Urine Clarity Clear Urine pH 7.0 Urine Specific [place] <=1.005 Urine Protein Negative Urine Glucose (UA) 250 H Urine Ketones Negative Urine Occult Blood Negative Urine Nitrite Negative Urine Bilirubin Negative Urine Urobilinogen 0.2 Urine Leukocyte Esterase Negative Volume Urine Centrifuged 10 ml Urine Comment Urine Opiates Screen Negative Urine Methadone Screen Negative Urine Fentanyl Screen Negative Urine Barbiturates Screen Negative Urine Phencyclidine Screen Negative Urine Amphetamines Screen Negative Urine Benzodiazepines Screen Negative Urine Cocaine Screen Negative Urine Cannabinoids Screen Negative Drug Screen Comment White Blood Count 7.3 Red Blood Count 4.96 Hemoglobin 14.5 Hematocrit 41.6 Mean Corpuscular Volume 83.9 Mean Corpuscular Hemoglobin 29.3 Mean Corpuscular Hemoglobin Concent 34.9 Red Cell Distribution Width 14.3 Platelet Count 427 Mean Platelet Volume 5.7 L Neutrophils (%) (Auto) 79.4 H Lymphocytes (%) (Auto) 10.4 L Monocytes (%) (Auto) 9.3 Eosinophils (%) (Auto) 0.4 Basophils (%) (Auto) 0.5 Neutrophils # (Auto) 5.8 Lymphocytes # (Auto) 0.8 L Monocytes # (Auto) 0.7 Eosinophils # (Auto) 0.0 Basophils # (Auto) 0.0 CBC Comment Sodium Level 123 L Potassium Level 3.7 Chloride Level 86 L Carbon Dioxide Level 30.2 Anion Gap 7 L Blood Urea Nitrogen 5 L Creatinine 0.74 Estimated GFR/1.73 m2 79 BUN/Creatinine Ratio 6.8 L Glucose Level 122 H Calcium Level 8.9 Total Bilirubin 0.3 Aspartate Amino Transf (AST/SGOT) 10 Alanine Aminotransferase (ALT/SGPT) 15 Alkaline Phosphatase 139 H Total Protein 7.8 Albumin 4.0 Globulin 3.8 Albumin/Globulin Ratio 1.1 Chemistry Comments Medical Decision Making Findings Patient presents to the emergency room with seizure-like activity as per HPI. Differentials include but are not limited to breakthrough seizure, medication noncompliance, pseudo-seizure, electrolyte disturbances therefore emergent labs and imaging indicated. CT reassuring. No seizure-like activity while in our emergency room. Significant anxiety managed with Ativan. Also noticed patient's hyponatremia. Although it is possible that this is causing her symptoms I feel that has very unlikely. This is likely secondary to patient's reported eating disorder. I will put her in his small course of sodium tablets with instructions to follow up with her doctor. Departure Disposition: HOME / SELF CARE / HOMELESS Impression: Primary Impression: Convulsions Additional Impression: Hyponatremia Condition: Stable Discharge Instructions: Hyponatremia, Seizure, Adult Additional Instructions: Call your doctor to follow up for arrangement to recheck your sodium that has that has very low today at 123. Referrals: NO PRIMARY CARE PROVIDER (PCP) Prescriptions Sodium Chloride (Sodium Chloride) 1,000 Mg Tablet.bertrand 1 TAB PO Q12H, #10 TAB 0 Refills Prov: ROMÁN KNAPP MD 05/09/25 Education Educated: Patient, Family Educated regarding: diagnosis, treatment, need for follow up Signature Scribe Signature: No scribe Attestation: The note accurately reflects work and decisions made by me.Román Knapp MD 05/09/25 00:41 ROMÁN KNAPP MD May 09, 2025 00:24
[2025-05-09] MEDS ORDERED: SODI100035 PO (00:41)
[2025-05-09] MEDS: ondansetron 4mg rapidly disintigrating tab PO ONE (00:50)
== END 2025-05-09 00:58 | disposition home or self-care (01) ==
LOC: ER 19:59
DX: G40.909 Epilepsy, unspecified, not intractable, without status epilepticus (principal); E87.1 Hypo-osmolality and hyponatremia; I10 Essential (primary) hypertension; F41.9 Anxiety disorder, unspecified; F32.A Depression, unspecified; Z88.8 Allergy status to other drugs, medicaments and biological substances; Z79.899 Other long term (current) drug therapy
CPT/HCPCS: 36415; 70450; 80053; 80305; 81003; 85025; 99284

== ENCOUNTER 2025-08-20 20:54 | Emergency (ER) | payer MEDICARE, MEDICAID ==
[~2025-08-20] VITALS: Ht 157.5 cm; Wt 66.0 kg
[~2025-08-20 20:54] MED LIST changes: +SODI100035 PO
--- NOTE | 2025-08-20 21:35 | Physician Documentation ---
History of Present Illness ~ Chief Complaint: Seizure Stated Complaint: SZ Time Seen by MD: 21:26 Primary Medical Doctor: MIKKI AT [facility] HPI Patient presents to the emergency room for evaluation of seizure activity. Patient has history of seizures and does have dementia in his normally oriented x1. Patient reports history of multiple different types of seizures from tonic-clonic to pseudoseizures. Significant other at bedside reports several seizures this evening without returned to baseline. No recent medication changes.. Caregiver at bedside reports good compliance with medications. Caregiver at bedside reports that has symptoms usually resolve after Ativan administration. Medication Reconciliation Allergies: Coded Allergies: phenytoin (Verified Allergy, Severe, 05/08/25) Scheduled Amantadine Hcl (Amantadine), 1 CAP PO TID, (Reported) Amitriptyline HCl (Amitriptyline HCl), 1 TAB PO HS, (Reported) Amlodipine Besylate (Amlodipine Besylate), 1 TABLET PO DAILY Aspirin (Children's Aspirin), 81 MG PO DAILY@0830 Buspirone HCl (Buspirone HCl), 1 TAB PO BID, (Reported) Eslicarbazepine Acetate (Aptiom), 1 TAB PO HS, (Reported) Gabapentin (Neurontin), 4 HS, (Reported) Levetiracetam (Levetiracetam), 2 TAB PO BID, (Reported) Melatonin (Melatonin), 1 CAP PO HS Mirtazapine (Mirtazapine), 1 TAB PO HS, (Reported) Sodium Chloride (Sodium Chloride), 1 TAB PO Q12H Scheduled PRN Hydroxyzine HCl (Hydroxyzine HCl), 1 TAB PO BID PRN for anxiety, (Reported) Past Medical History Past Medical History: Dementia, Seizures, Arrhythmia, Hypertension, Pneumonia, Anxiety, Depression Past Surgical History: noncontributory Patient History: Seizure disorder Paternal grandmother Alcohol Use: Sober Drug Use: none Lives with: Family Lives In: Home Review of Systems ROS All review of systems negative except as per HPI Physical Exam Vital Signs: Temperature: 98.9, Source: Oral, Heart Rate: 97, Respiratory Rate: 16, BP: 152/63, Pulse Oximetry: 98, Weight: 66.000 Oxygen Flow Rate: 0 Physical Exam General: Patient is awake, alert, oriented x1 in no acute distress Head: Normocephalic and atraumatic. Eyes: Conjunctival normal. EOMI. PERRL. ENT: Mucous membranes moist. Neck: Supple, trachea is midline. Chest: Clear to auscultation bilaterally without rales, rhonchi, or wheezes. There is no accessory muscle use or retractions. Cardiac: RRR without murmurs, gallops, or rubs. Abd: Soft, nondistended, nontender, with normoactive bowel sounds. No guarding, rebound, or rigidity. Progress Results/Orders Results/Orders Orders - ROMÁN KNAPP MD Urinalysis (08/20/25 21:27) Completed Orders - ROMÁN KNAPP MD Cbc/Diff (08/20/25 21:27) BMP (08/20/25 21:27) Levetiracetam-Usht1566db/100ml (Levetira (08/20/25 21:40) Levetiracetam-Nacl 500mg/100ml (Levetira (08/20/25 21:40) Diazepam Inj (Valium Inj) (08/20/25 21:40) Sodium Chloride Tablet (Sodium Chloride (08/20/25 22:20) Ciprofloxacin Ophth Drops (Ciloxan 0.3% (08/20/25 22:25) Medications Received in ER Medications (Trade) Dose Ordered Sig/Mina Route PRN Reason Start Time Stop Time Status Last Admin Dose Admin Levetiracetam 100 ml @ 400 mls/hr ONCE ONCE IV 08/20/25 21:40 08/20/25 21:54 DC 08/20/25 21:58 400 MLS/HR Levetiracetam 100 ml @ 400 mls/hr ONCE ONCE IV 08/20/25 21:40 08/20/25 21:54 DC 08/20/25 21:58 400 MLS/HR (Valium inj) 5 mg ONCE ONCE IV 08/20/25 21:40 08/20/25 21:41 DC 08/20/25 21:58 5 MG Vital Signs 08/20/25 08/20/25 08/20/25 08/20/25 21:00 21:58 22:28 22:29 Temp 98.9 98.9 Pulse 97 91 Resp 16 11 16 B/P (MAP) 152/63 150/64 (92) Pulse Ox 98 97 O2 Flow Rate 0 0 Laboratory Tests Test 08/20/25 21:52 08/20/25 22:20 White Blood Count 5.3 Red Blood Count 4.64 Hemoglobin 13.8 Hematocrit 39.0 Mean Corpuscular Volume 84.1 Mean Corpuscular Hemoglobin 29.7 Mean Corpuscular Hemoglobin Concent 35.3 Red Cell Distribution Width 14.1 Platelet Count 380 Mean Platelet Volume 6.3 L Neutrophils (%) (Auto) 79.0 H Lymphocytes (%) (Auto) 9.9 L Monocytes (%) (Auto) 10.1 Eosinophils (%) (Auto) 0.5 Basophils (%) (Auto) 0.5 Neutrophils # (Auto) 4.2 Lymphocytes # (Auto) 0.5 L Monocytes # (Auto) 0.5 Eosinophils # (Auto) 0.0 Basophils # (Auto) 0.0 CBC Comment Sodium Level 125 L Potassium Level 3.4 L Chloride Level 88 L Carbon Dioxide Level 31.2 Anion Gap 6 L Blood Urea Nitrogen 5 L Creatinine 0.80 Estimated GFR/1.73 m2 72 BUN/Creatinine Ratio 6.3 L Glucose Level 127 H Calcium Level 8.5 Albumin 4.0 Chemistry Comments Urine Comment Medical Decision Making Additional information obtaine: old records Findings Patient presents to the emergency room for evaluation of seizures. No additional seizure activity in the emergency room. Patient has been loaded with Keppra in Valium in his feeling much better. Patient also suffering from pink eye in the left and we have started treatment for this is well. Patient and caregiver feel safe to go home. ER precautions discussed. I do not feel patient requires CT scan of the head. Noted hyponatremia which has a known problem with this patient and I will put her on a course of sodium chloride with instructions to follow up with her doctor. Differential Dx:Considerations: Include: Hyperventilation, Psychogenic seizure, Due to alcohol withdrawl, Anticonvulsant withdrawl, Due to closed head injury, Due to CVA/TIA, Due to drug ingestion, Due to eclampsia, Due to hypocalcemia, Due to hypoglycemia, Due to hyponatremia, Due to hypoxemia, Idiopathic, Due to mass lesion, Due to meningitis, Syncope, Encephalopathy, Epilepsy-break through, Epilepsy-status, Other Departure Disposition: 01 HOME / SELF CARE / HOMELESS Impression: Primary Impression: Seizure disorder Additional Impressions: Hyponatremia [place] Condition: Improved Discharge Instructions: Bacterial Conjunctivitis, Adult, [id number], Hyponatremia, [id number], Seizure, Adult Referrals: NO PRIMARY CARE PROVIDER (PCP) Prescriptions Ciprofloxacin Hcl Ophth* (Ciloxan 0.35 Ophth Drops*) 2.5 Ml Bottle 1-2 DROP EACHEYE Q4HWA, #1 BOTTLE Prov: ROMÁN KNAPP MD 08/20/25 Education Educated: Patient Educated regarding: diagnosis, treatment, need for follow up Signature Scribe Signature: No scribe Attestation: The note accurately reflects work and decisions made by me.Román Knapp MD 08/20/25 23:03 ROMÁN KNAPP MD Aug 20, 2025 21:35
[2025-08-20] MEDS: diazepam inj 5 MG/ML inj. IV ONE (21:58)
[2025-08-20] MEDS: levetiracetam-NACL1000mg/100ml 100 ML IV ONE (21:58)
[2025-08-20] MEDS: Levetiracetam-NACL 500mg/100ml 100 ML IV ONE (21:58)
[2025-08-20 22:01] LABS: MEAN PLATELET VOLUME 6.3 FL (7.4-10.4); RED CELL DISTRIBUTION WIDTH 14.1 % (11.5-14.5)
[2025-08-20 22:09] LABS: CREATININE 0.80 MG/DL (0.40-0.90); TOTAL CARBON DIOXIDE 31.2 MMOL/L (24-32); eCRCL 57 ML/MIN; eGFR 72 ML/MIN
[2025-08-20 22:45] LABS: LEUKOCYTE ESTERASE ,URINE NEGATIVE (Neg); NITRITES, URINE NEGATIVE (Neg); OCCULT BLOOD,URINE NEGATIVE (Neg)
[2025-08-20] MEDS ORDERED: CIPR2.5D21 EACHEYE (23:03)
[2025-08-20] MEDS: ciprofloxacin 0.3% 2.5ml ophthalmic solution LEFTEYE ONE (23:18)
[2025-08-20 23:29] LABS: UA COLLECTION TYPE CLN CATCH MIDSTREAM
[2025-08-20 23:31] VITALS: BP 141/70; PULSE 89; RESP 11; TEMP 98.9; O2SAT 97
== END 2025-08-20 23:33 | disposition home or self-care (01) ==
LOC: ER 20:54
DX: G40.909 Epilepsy, unspecified, not intractable, without status epilepticus (principal); H10.022 Other mucopurulent conjunctivitis, left eye; E87.1 Hypo-osmolality and hyponatremia; I10 Essential (primary) hypertension; F41.9 Anxiety disorder, unspecified; F32.A Depression, unspecified; F03.94 Unspecified dementia, unspecified severity, with anxiety; Z88.8 Allergy status to other drugs, medicaments and biological substances; Z79.899 Other long term (current) drug therapy
CPT/HCPCS: 36415; 80048; 81003; 85025; 96365; 96375; 99284; J1953; J3360

== ENCOUNTER 2025-09-01 21:35 | Inpatient (IN) | payer MEDICARE, MEDICAID ==
[~2025-09-01] VITALS: Ht 165.1 cm; Wt 66.0 kg
[~2025-09-01 21:35] MED LIST changes: +CIPR2.5D21 EACHEYE
[2025-09-01 22:10] LABS: MEAN PLATELET VOLUME 6.3 FL (7.4-10.4); RED CELL DISTRIBUTION WIDTH 14.5 % (11.5-14.5)
[2025-09-01 22:27] LABS: CREATININE 0.67 MG/DL (0.40-0.90); TOTAL CARBON DIOXIDE 27.8 MMOL/L (24-32); eCRCL 77 ML/MIN; eGFR 89 ML/MIN
--- NOTE | 2025-09-01 23:00 | RADIOLOGY REPORT ---
CHEST RADIOGRAPH REASON FOR EXAM: seizure COMPARISON: DI CHEST,SINGLE VIEW on DOS: 03/12/25, CHEST,SINGLE VIEW on DOS: 07/22/22, CHEST,SINGLE VIEW on DOS: 03/19/22, CHEST,SINGLE VIEW on DOS: 04/25/20 TECHNIQUE: One view of the chest is provided FINDINGS: The cardiomediastinal silhouette is within normal limits for technique. There is trace linear scarring at the periphery of the left lung base. There is no acute focal airspace disease. There is no significant pleural effusion. No acute bony abnormality is identified. IMPRESSION: No radiographic evidence of acute cardiopulmonary process.
--- NOTE | 2025-09-01 23:55 | RADIOLOGY REPORT ---
COMPUTERIZED TOMOGRAPHY OF THE HEAD WITHOUT CONTRAST REASON FOR STUDY: seizure and aphasia COMPARISON: CT CT HEAD on DOS: 05/08/25, CT CTA NECK/HEAD on DOS: 03/12/25, CT CT HEAD on DOS: 03/12/25, CT CT HEAD on DOS: 04/29/24, CT CT HEAD on DOS: 03/05/24 TECHNIQUE: Helical tomographic scans were obtained through the brain. 2-D coronal and sagittal reformatted images are provided. Radiation optimization: All CT scans at this facility use at least one of these dose optimization techniques: Automated exposure control mA and/or kV adjustment per patient size (includes targeted exams where dose is matched to clinical indication) or iterative reconstruction. RADIATION DOSE: CTDI: 60 mGy DLP: 1094 mGy-cm FINDINGS: No suspicious intracranial hyperdensity to suggest acute blood. There is no mass effect nor midline shift. There is moderate generalized volume loss with compensatory enlargement of the CSF spaces. There is no hydrocephalus. The suprasellar cistern is intact. There are scattered periventricular and deep white matter hypodensities that are most consistent with chronic microangiopathic changes. The calvarium is intact. The visualized mastoid air cells and paranasal sinuses are clear. IMPRESSION: No acute intracranial abnormality. Moderate generalized volume loss with chronic small vessel ischemic change.
[2025-09-02] MEDS ORDERED: iohexol 350 MG/ML 50ML vial IV ONE (00:15)
[2025-09-02 01:03] LABS: LEUKOCYTE ESTERASE ,URINE NEGATIVE (Neg); NITRITES, URINE NEGATIVE (Neg); OCCULT BLOOD,URINE NEGATIVE (Neg)
[2025-09-02 01:07] LABS: UA COLLECTION TYPE NON-SPECIFIED
[2025-09-02 01:12] LABS: URINE AMPHETAMINE SCREEN NEGATIVE (Neg); URINE BARBITUATE SCREEN NEGATIVE (Neg); URINE BENZODIAZEPINES SCREEN NEGATIVE (Neg); URINE CANNABINOID SCREEN NEGATIVE (Neg); URINE COCAINE SCREEN NEGATIVE (Neg); URINE METHADONE SCREEN NEGATIVE (Neg); URINE OPIATE SCREEN NEGATIVE (Neg); URINE PHENCYCLIDINE SCREEN NEGATIVE (Neg)
[2025-09-02] MEDS: normal saline 1000ml 1,000 ML IV ONE (01:16)
[2025-09-02] MEDS ORDERED: magnesium hydroxide 30ml (MOM) UD suspension PO PRN (02:50)
[2025-09-02] MEDS ORDERED: magnesium sulf-water 4G/100mL 100 ML IV PRN (02:50)
[2025-09-02] MEDS ORDERED: potassium Cl 40MEQ/1/2NS 520ml 520 ML IV PRN (02:50)
[2025-09-02] MEDS ORDERED: HYDROcodone/acetaminophen 5mg/325mg tablet PO PRN (02:50)
[2025-09-02] MEDS ORDERED: HYDROmorphone/PF 0.2 MG/ML SYRINGE IV PRN (02:50)
[2025-09-02] MEDS ORDERED: magnesium sulf-water 2g/50mL 50 ML IV PRN (02:50)
[2025-09-02] MEDS ORDERED: ondansetron/PF 4mg/2ml inj IV PRN (02:50)
[2025-09-02] MEDS ORDERED: potassium Cl 20 mEq SR tablet PO PRN ×2 (02:50)
[2025-09-02] MEDS ORDERED: mag hydrox/Alum hydrox/simeth 30ml oral suspension PO PRN (02:50)
[2025-09-02] MEDS ORDERED: magnesium Cl slow-release 64mg tablet PO PRN (02:50)
--- NOTE | 2025-09-02 03:01 | Physician Documentation ---
History of Present Illness ~ Chief Complaint: Seizure Stated Complaint: STROKE Time Seen by MD: 21:39 Primary Medical Doctor: MIKKI AT [facility] Mode of Arrival: POV HPI 65 year old female with history of seizure disorder had a witnessed tonic-clonic seizure. Subsequently the patient was noted to be post-ictal, and then after that was noted to exhibit a possible facial droop and speech slur and maybe some word-finding difficulty. EMS notes these neurologic deficits en route. On arrival the patient has no complaints otherwise. Medication Reconciliation Allergies: Coded Allergies: phenytoin (Verified Allergy, Severe, 05/08/25) Scheduled Amantadine Hcl (Amantadine), 1 CAP PO TID, (Reported) Amitriptyline HCl (Amitriptyline HCl), 1 TAB PO HS, (Reported) Amlodipine Besylate (Amlodipine Besylate), 1 TABLET PO DAILY Aspirin (Children's Aspirin), 81 MG PO DAILY@0830 Buspirone HCl (Buspirone HCl), 1 TAB PO BID, (Reported) Ciprofloxacin Hcl Ophth* (Ciloxan 0.35 Ophth Drops*), 1-2 DROP EACHEYE Q4HWA Eslicarbazepine Acetate (Aptiom), 1 TAB PO HS, (Reported) Gabapentin (Neurontin), 4 HS, (Reported) Levetiracetam (Levetiracetam), 2 TAB PO BID, (Reported) Melatonin (Melatonin), 1 CAP PO HS Mirtazapine (Mirtazapine), 1 TAB PO HS, (Reported) Sodium Chloride (Sodium Chloride), 1 TAB PO Q12H Scheduled PRN Hydroxyzine HCl (Hydroxyzine HCl), 1 TAB PO BID PRN for anxiety, (Reported) Past Medical History Past Medical History: Dementia, Seizures, Arrhythmia, Hypertension, Pneumonia, Anxiety, Depression Past Surgical History: noncontributory Patient History: Seizure disorder Paternal grandmother Smoking Status: Never smoker Alcohol Use: Sober Drug Use: none Lives with: Family Lives In: Home Review of Systems All Other Systems at this time: Reviewed and Negative Physical Exam Vital Signs: RN Vital Signs have been reviewed: Yes, Temperature: 98.1, Source: Oral, Heart Rate: 103, Respiratory Rate: 17, BP: 162/96, Pulse Oximetry: 94, Weight: 66.000 Oxygen Flow Rate: 0 Physical Exam Gen: no distress HEENT: EOMI, PERRL; +tongue swelling Pulm: no distress, CTAB Cardiac: RRR no m/c/r Abdomen: deferred MSK: no deformity Skin: w/d/i Neuro: some word-finding difficulty but otherwise nonfocal Psych: unremarkable Progress Results/Orders Reviewed/noted all lab results: Yes Results/Orders Orders - JESSICA DIAL MD Chest,Single View (09/01/25 21:40) Ct Head (09/01/25 22:50) Cta Head (09/02/25 00:20) Page Hospitalist (09/02/25 02:19) Completed Orders - JESSICA DIAL MD CMP (09/01/25 21:40) Drug Screen, Urine (09/01/25 21:40) Cbc/Diff (09/01/25 21:40) Urinalysis, Cult If Indicated (09/01/25 21:40) Chest,Single View (09/01/25 21:40) Ct Head (09/01/25 22:50) Iohexol 350mg/Ml 100ml (Omnipaque 350mg/ (09/01/25 21:47) Cta Head (09/02/25 00:20) Iohexol 350mg/Ml 50ml Inj (Omnipaque 350 (09/02/25 00:15) Normal Saline 1000ml (0.9% Sodium Chlori (09/02/25 01:10) Medications Received in ER Medications (Trade) Dose Ordered Sig/Mina Route PRN Reason Start Time Stop Time Status Last Admin Dose Admin Sodium Chloride 1,000 ml @ 1,000 mls/hr ONCE ONCE IV 09/02/25 01:10 09/02/25 02:09 DC 09/02/25 01:16 1,000 MLS/HR Vital Signs 09/01/25 09/01/25 09/01/25 09/02/25 21:36 22:44 23:18 00:38 Temp 98.1 98.1 98.1 Pulse 91 85 103 Resp 16 16 17 B/P (MAP) 164/78 150/88 (108) 162/96 (118) Pulse Ox 98 98 94 O2 Flow Rate 0 0 0 Laboratory Tests Test 09/01/25 22:01 09/02/25 00:33 White Blood Count 5.3 Red Blood Count 4.53 Hemoglobin 13.2 Hematocrit 38.2 Mean Corpuscular Volume 84.4 Mean Corpuscular Hemoglobin 29.1 Mean Corpuscular Hemoglobin Concent 34.4 Red Cell Distribution Width 14.5 Platelet Count 311 Mean Platelet Volume 6.3 L Neutrophils (%) (Auto) 72.7 Lymphocytes (%) (Auto) 13.4 L Monocytes (%) (Auto) 12.2 H Eosinophils (%) (Auto) 0.7 Basophils (%) (Auto) 1.0 Neutrophils # (Auto) 3.9 Lymphocytes # (Auto) 0.7 L Monocytes # (Auto) 0.6 Eosinophils # (Auto) 0.0 Basophils # (Auto) 0.1 CBC Comment Sodium Level 126 L Potassium Level 3.9 Chloride Level 93 L Carbon Dioxide Level 27.8 Anion Gap 5 L Blood Urea Nitrogen 6 L Creatinine 0.67 Estimated GFR/1.73 m2 89 BUN/Creatinine Ratio 9.0 L Glucose Level 120 H Calcium Level 8.7 Total Bilirubin 0.3 Aspartate Amino Transf (AST/SGOT) 12 Alanine Aminotransferase (ALT/SGPT) 17 Alkaline Phosphatase 123 H Total Protein 6.8 Albumin 3.6 Globulin 3.2 Albumin/Globulin Ratio 1.1 Chemistry Comments Urine Specimen Description Non-specified Urine Color Yellow Urine Clarity Clear Urine pH 7.5 Urine Specific [place] <=1.005 Urine Protein Negative Urine Glucose (UA) Negative Urine Ketones Negative Urine Occult Blood Negative Urine Nitrite Negative Urine Bilirubin Negative Urine Urobilinogen 0.2 Urine Leukocyte Esterase Negative Urine Culture Indicated Not ind Volume Urine Centrifuged 10 ml Urine Comment Urine Opiates Screen Negative Urine Methadone Screen Negative Urine Fentanyl Screen Negative Urine Barbiturates Screen Negative Urine Phencyclidine Screen Negative Urine Amphetamines Screen Negative Urine Benzodiazepines Screen Negative Urine Cocaine Screen Negative Urine Cannabinoids Screen Negative Drug Screen Comment EKG/XRAY/CT/US/VASC/MRI CT : Interpreted By: self CT: head Impression no mass/shift/bleed Medical Decision Making Additional information obtaine: N/A Findings 65 year old female with possible neurologic deficits after a seizure disorder, though en route we noted only some word-finding difficulty. Workup demonstrated hyponatremia, CT head negative but CTA interpretation delayed due to software problems sending to interpreting radiologist. At this time I do not believe she has suffered a stroke but I will transfer care to a hospitalist for inpatient workup, MRI, and possible neurology consultation once we have CTA results. Preston ng I believe her speech slur is from trauma to her tongue that occurred during the seizure. Differential Dx:Considerations: Include: Due to alcohol withdrawl, Anticonvulsant withdrawl, Due to closed head injury, Due to CVA/TIA, Due to hyponatremia, Encephalopathy, Epilepsy-break through Departure Disposition: ADMITTED INPATIENT Admitted to Inpatient Unit: to hospitalist Admission Level of Care: Med/Surg Impression: Primary Impression: Post-ictal state Condition: Stable Referrals: NO PRIMARY CARE PROVIDER (PCP) Education Educated: Patient, Family Educated regarding: diagnosis, treatment, prognosis, need for follow up Signature Scribe Signature: . Attestation: . JESSICA DIAL MD Sep 02, 2025 03:01
[2025-09-02] MEDS: normal saline 1000ml 1,000 ML IV SCH (03:24)
--- NOTE | 2025-09-02 03:34 | HISTORY AND PHYSICAL-Residence ---
History & Physical Providers to CC Resident Creating Document: GIBSON AUGUSTINE, RES ~ History of Present Illness Primary Medical Doctor: MIKKI AT [facility] Reason for Admit\Complaint: Seizure, stroke-like symptoms History of Present Illness This is a 65-year-old female with a history of epilepsy, dementia, hypertension who was brought to the ER by EMS after a witnessed seizure episode by family members that lasted about 6 minutes. Patient is a poor historian due to dementia with baseline confusion, slurred speech. Most of the history was obtained from ER physician and EMS notes. Per EMS patient's family reported patient's eyes rolling back and going unresponsive and upon wakening patient had slurred speech and difficulty in formulating her words, right side facial droop per family. Her tongue appears swollen. Unclear if the patient takes any epilepsy medications at home. However per med rec she takes carbamazepine 800 mg at bedtime, levetiracetam 750 mg b.i.d., aspirin 81 mg p.o. daily, amlodipine 10 mg p.o. daily, amantadine 100 mg p.o. t.i.d., amitriptyline and gabapentin Patient repeatedly tells me that she is unable to think clearly and unable to answer my questions. She is awake, alert but not oriented to time place or person. However patient has no focal weakness and initial CT of the head did not show any acute intracranial abnormalities. One dose of aspirin and atorvastatin is administered in ER. Allergies: Coded Allergies: phenytoin (Verified Allergy, Severe, 05/08/25) Home Medications Home Medications Active Ciloxan 0.35 Ophth Drops* (Ciprofloxacin) 2.5 Ml Bottle 1-2 Drop EACHEYE Q4HWA Sodium Chloride 1,000 Mg Tablet.bertrand 1 Tab PO Q12H Amlodipine Besylate 10 Mg Tablet 1 Tablet PO DAILY 30 Days Melatonin 5 Mg Capsule 1 Cap PO HS 30 Days Children's Aspirin (Aspirin) 81 Mg Tab.chew 81 Mg PO DAILY@0830 Reported Aptiom (Eslicarbazepine Acetate) 800 Mg Tablet 1 Tab PO HS Neurontin (Gabapentin) 300 Mg Capsule 4 HS Mirtazapine 15 Mg Tablet 1 Tab PO HS Hydroxyzine HCl 50 Mg Tablet 1 Tab PO BID PRN Amantadine (Amantadine Hcl) 100 Mg Capsule 1 Cap PO TID Amitriptyline HCl 75 Mg Tablet 1 Tab PO HS Levetiracetam 750 Mg Tablet 2 Tab PO BID Buspirone HCl 15 Mg Tablet 1 Tab PO BID Past Medical History Past Medical History epilepsy, dementia, hypertension Past Surgical History Surgical History Comment Unable to obtain Family History Family History: Seizure disorder Paternal grandmother Past Social History Social History Comment Unable to obtain Smoking: Non-Smoker Alcohol Use: Sober Drug Use: None Lives with: Family Lives In: Home ROS All Other Systems: Reviewed and Negative ROS Unable to obtain Exam Vitals: Vital Signs Date Time Temp Pulse Resp B/P (MAP) Pulse Ox O2 Delivery O2 Flow Rate FiO2 09/02/25 00:38 98.1 103 17 162/96 (118) 94 0 General: General: Has slurred speech, slow to follow commands, well developed, well nourished. Awake , alert, but not oriented, resting comfortably in the bed, in no acute distress . HEENT: Atraumatic, normocephalic, EOMI, anicteric sclera B; pink conjunctiva; PERRLA, normal oropharynx, moist oral and nasal mucosa. Tympanic membrane , nose , throat clear. Tongue appears swollen Neck: Trachea midline. Supple, full range of motion, no JVD, bruit , hepatojugular reflex , lymphadenopathy or masses, or other lesions Cardiac: Regular rhythm, regular rate no murmurs, rubs, or gallops. Normal S1 and S2, no S3 noticed. PMI is normal. Respiratory: Equal breath sounds bilaterally, no tachypnea; lungs clear to auscultation bilaterally, no wheezing ,rub or rales, or crackles. Chest wall is symmetric and without deformity. No signs of trauma. Chest wall is nontender. No signs of respiratory distress. Resonance is normal upon percussion bilaterally. Gastrointestinal: Abdomen symmetric, non-distended, soft, non-tender, normal bowel sounds x4 quadrant, normoactive, no hepatosplenomegaly , no masses , no bruit, no flank pain bilaterally. No voluntary guarding, rebound, or rigidity. No tenderness to percussion. No pulsatile masses. Equal femoral pulses. No Erickson's sign or McBurney point tenderness. Back; no CVA tenderness bilaterally, no deformities. Neck and back are without deformity as well. No tenderness noted on palpation of the spinous processes. Spinous processes are midline. Cervical, thoracic, and lumbar paraspinal muscles are not tender and are without spasm. : normal external genitalia, without lesions, swelling, masses or tenderness. Musculoskeletal: Extremities, normal range of motion, non-tender, muscle strength 3/5 in bilateral upper extremities and 4/5 in bilateral lower extremities. Negative Homans signs bilaterally on lower extremity. Distal pulses full symmetrical, no clubbing, cyanosis , edema. Neurological: Awake, alert, but not oriented. No sensory deficit, deep tendon reflexes normal, cerebellar intact. Cranial nerves II-XII intact. Psych: Alert and or appropriate, normal affect. Vascular: Good distal pulses, which are equal x4; capillary refill less than 2 seconds. Skin: Warm, dry, no pallor, no rash or petechiae. Diagnostic Data Last Recorded Lab Results: 09/01/25220009/01/252200 Advance Care Planning Advanced Care plannin - 30 Minutes (I spent a total of 17 minutes on reviewing various resuscitative measures/ ACP with the patient at the time of admission. The patient has decided on a full code status) Additional Plan Breakthrough Tonic-clonic seizures with known epilepsy Patient takes carb has been 800 mg at home, Keppra 750 mg b.i.d. at home. Keppra dose increased to IV 1 g b.i.d. daily. Blue latisha tele neurology consulted who recommended EEG, Keppra 1 g b.i.d. Seizure, fall precautions. Proceed with continuous EEG if patient ALOC does not improve by morning. Slurred speech, difficulty formulating words Can not rule out stroke CT of the head did not show any acute intracranial abnormalities. CTA, echocardiogram pending. MRI pending. Patient received one dose of aspirin and atorvastatin in the ER. Current blood pressure 180/90 mmHg. Allow permissive hypertension until stroke is ruled out. Altered level of consciousness Hyponatremia Check ammonia, lactate. U tox is negative. Possible carbamazepine induced hyponatremia. Follow up with carbamazepine levels. Patient received 1 L NS bolus followed by maintenance fluids IV NS at 100 mL/hour. Recheck CMP in the a.m. avoid correcting more than 6-8 mEq in 24 hours History of dementia Continue amantadine after med rec Code Status: Full code DVT Prophylaxis: Heparin subcutaneous Analgesia/Sedation: Tylenol, [place] PRN Lines/Tubes: PIV Gi Prophylaxis: None Nutrition: Regular diet after passing bedside swallow test PT: Yes Prognosis: Guarded Disposition: Admit to neuro floor with telemetry monitoring. Gibson Harrison MD Internal Medicine Resident PGY-2 Date of Service: Sep 02, 2025 Billing Provider: AVA MAX MD,GIBSON HARRISON, RES Sep 02, 2025 03:34
[2025-09-02] MEDS: levetiracetam inj 1,000 MG in normal saline 100ml IV soln 100 ML IV SCH (03:40)
[2025-09-02] MEDS: levetiracetam-NACL1000mg/100ml 100 ML IV ONE (04:01)
--- NOTE | 2025-09-02 04:11 | CONSULTATION REPORT ---
History of Present Illness Providers to CC ~ Reason for Admit\Admit Dx: Seizure, stroke-like symptoms Refering MD: MIKKI AT [facility] Allergies: Coded Allergies: phenytoin (Verified Allergy, Severe, 05/08/25) Home Medications Home Medications Active Ciloxan 0.35 Ophth Drops* (Ciprofloxacin) 2.5 Ml Bottle 1-2 Drop EACHEYE Q4HWA Sodium Chloride 1,000 Mg Tablet.bertrand 1 Tab PO Q12H Amlodipine Besylate 10 Mg Tablet 1 Tablet PO DAILY 30 Days Melatonin 5 Mg Capsule 1 Cap PO HS 30 Days Children's Aspirin (Aspirin) 81 Mg Tab.chew 81 Mg PO DAILY@0830 Reported Aptiom (Eslicarbazepine Acetate) 800 Mg Tablet 1 Tab PO HS Neurontin (Gabapentin) 300 Mg Capsule 4 HS Mirtazapine 15 Mg Tablet 1 Tab PO HS Hydroxyzine HCl 50 Mg Tablet 1 Tab PO BID PRN Amantadine (Amantadine Hcl) 100 Mg Capsule 1 Cap PO TID Amitriptyline HCl 75 Mg Tablet 1 Tab PO HS Levetiracetam 750 Mg Tablet 2 Tab PO BID Buspirone HCl 15 Mg Tablet 1 Tab PO BID Past Family History Family History: Seizure disorder Paternal grandmother Physical Exam Last Vital Signs Recorded: Temperature: 98.1, Source: Oral, Heart Rate: 103, Respiratory Rate: 17, BP: 162/96, Pulse Oximetry: 94, Weight: 66.000 Results Diagram Lab Result Diagram: 09/01/25220009/01/252200 Assessment/Plan Additional Plan [place] [facility] Note # Demographics Consult Type: Acute Stroke Level 2 (4.5-24 hrs) Patient Location: Emergency Room First Name: Lulu Last Name: Mady Date of : 1960 Age: 65 Gender: Female Facility: [facility] Time of Initial Page (): 09/02/2025 03:21 First Contact with Site ( Time): 09/02/2025 03:22 # Exam Time of Exam (): 09/02/2025 03:49 Mental Status: - sleepy - confused slowly follows commands Language: slow speech Cranial Nerves: - extra ocular movements intact - PERRLA Motor: - normal strength Cerebellar: no gross ataxia # PMH-FH-SH Past Medical History: - seizure - dementia - hypertension Family History: first degree relative: negative Social History: - non-smoker - occasional alcohol - THC Medications: - antihypertensive Keppra 750mg BID, Tegretol, gabapentin Allergies: dilantin # Data Time Head CT personally read by me ([place] Time): 09/02/2025 04:[address]: - no bleed - per radiologist read Time CTA personally reviewed by me ([place] Time): 09/02/2025 04:08 CTA Head: - no large vessel occlusion - per radiologist read # Assessment Impression: - Seizure # Plan Labs: tegretol level Imaging: (urgency: routine): - MRI Brain with AND without contrast Medication: - levetiracetam (Keppra) 1000 mg PO or IV every 12 hours Give one gram Keppra now Continue home dose of Tegretol for now Cont home dose of Gabapentin Other: - If patient has any neurological deterioration please call back immediately Additional Recommendations: If patient returns to baseline by later this morning can hold on EEG, If still altered or another seizure occur, place on continuous EEG monitoring # Demographics First Name: Lulu Last Name: Mady Facility: [facility] AVTAR CONNELLY Jr., MD Sep 02, 2025 04:11
--- NOTE | 2025-09-02 06:37 | RADIOLOGY REPORT ---
INDICATION: seizure and aphasia EXAM DATE: 09/02/2025 12:01 AM COMPARISON: CT CT HEAD on DOS: 09/01/25, CT CT HEAD on DOS: 05/08/25, CT CTA NECK/HEAD on DOS: 03/12/25, CT CT HEAD on DOS: 03/12/25, CT CT HEAD on DOS: 04/29/24 TECHNIQUE: CTA head without and with intravenous contrast. 3D image postprocessing was performed on a dedicated workstation and images were used for interpretation and reporting. RADIATION DOSE: CTDI vol: 195 DLP: 3069.38 mGy*cm FINDINGS: CT head: There is no evidence of acute intracranial hemorrhage, extra-axial collection, mass effect, midline shift, herniation or hydrocephalus. The ventricles, sulci and cisterns are age appropriate. Generalized brain atrophy. The ventura-white differentiation is intact. Periventricular white matter hypoattenuation, nonspecific, likely related to chronic small-vessel ischemic disease. The visualized paranasal sinuses and mastoid air cells are clear. The surrounding soft tissues and osseous structures are unremarkable. CTA head: There is normal enhancement of the visualized distal internal carotid, anterior and middle cerebral arteries. There is a normal anterior communicating artery complex. There are bilateral posterior communicating arteries. The vertebral, basilar, cerebellar and posterior cerebral arteries are within normal limits. Incidental note is made of a origin right posterior cerebral artery. The early parenchymal enhancement is grossly unremarkable. The visualized intracranial venous structures are grossly unremarkable. IMPRESSION: No evidence of acute intracranial hemorrhage, mass effect or hydrocephalus. Atrophy and chronic small-vessel ischemic changes. No evidence of hemodynamically significant intracranial stenosis, proximal occlusion or aneurysm.
[2025-09-02] MEDS: K and/or MAG REPLACEMENT MC SCH (08:00)
[2025-09-02 08:38] LABS: CREATININE 0.60 MG/DL (0.40-0.90); PRO BRAIN NATRIURETIC PEPTIDE 367 PG/ML (0-125); TOTAL CARBON DIOXIDE 27.1 MMOL/L (24-32); eCRCL 86 ML/MIN; eGFR > 90 ML/MIN
[2025-09-02 08:51] LABS: APTT 26 SECONDS (22-32); INR 1.0 INR
[2025-09-02] MEDS: docusate sod 100mg capsule PO SCH (09:55)
[2025-09-02] MEDS: heparin, porcine 5000 units/ml vial SQ SCH (09:56)
[2025-09-02] MEDS: LevETIRAcetam 1,000MG in NS 100ml IV.SOLN premix IV SCH (09:57)
[2025-09-02 10:00] VITALS: RESP 18
[2025-09-02 10:38] VITALS: RESP 16; O2SAT 98
[2025-09-02 11:06] VITALS: BP 168/74; PULSE 92; RESP 21; TEMP 98.6; O2SAT 97
[2025-09-02] MEDS ORDERED: ESLI600T PO (12:50)
[2025-09-02] MEDS ORDERED: ZOLP-678 PO (12:51)
[2025-09-02] MEDS ORDERED: MIRT-88 PO (15:32)
[2025-09-02 18:00] VITALS: BP 157/76; PULSE 80; RESP 12; TEMP 98.8; O2SAT 91
--- NOTE | 2025-09-02 18:06 | CARDIOLOGY REPORT ---
APPROVED REPORT EXAM: Comprehensive 2D, Doppler, and color-flow Echocardiogram. Patient Location: 357 A Heart Rate: 80's bpm Rhythm: SINUS Indications CEREBRAL VASCULAR ACCIDENT NO CONTRAST ORDERED HYPERTENSION DEMENTIA Recovery Auditor: NONE Previous echo: [facility] 03/14/25 EF 75%, SIOBHAN: 1.39, GRAD: 34/20, PK V: 2.93. m-modAI, trMR, trTR 2D Dimensions IVSd 1.2 (0.7-1.1cm) LVDd 3.6 cm PWd 1.2 (0.7-1.1cm) IVSs 1.4 (0.8-1.2cm) LVDs 2.4 (2.5-4.0cm) PWs 1.4 (0.8-1.2cm) LVOT Diameter 2.32 (1.8-2.4cm) LVEF(%) 62.5 (>50%) FS (%) 33.0 % SV 34.1 ml CO 2.9 L/min M-Mode Dimensions Left Atrium(MM) 2.82 (2.5-4.0cm) Aortic Root 3.27 (2.2-3.7cm) Aortic Cusp Exc 1.22 (1.5-2.0cm) Aortic Valve AoV Peak Jordi. 287.8 cm/s AoV VTI 55.0 cm AO Peak GR. 33.1 mmHg AO Mean GR. 19 mmHg LVOT VTI 22.43 cm LVOT Peak Jordi. 111.0 cm/s SIOBHAN(VTI)/BSA 1.72 cm2/m2 SIOBHAN (VTI) 1.72 cm2 AV DI 0.41 % Mitral Valve MV E Velocity 82.9 cm/s MV Peak Gr. 4 mmHg MV DECEL TIME 200 ms MV A Velocity 102.9 cm/s MV PHT 56 ms E/A Ratio 0.8 MVA (PHT) 3.93 cm2 MV VMax 96.9 cm/s Tricuspid Valve TR P. Velocity 230 cm/s RAP ESTIMATE 10 mmHg TR Peak Gr. 21 mmHg RVSP 31 mmHg LEFT VENTRICLE Normal LV size and function. Mild concentric hypertrophy. LVEF is 65-70%. RIGHT VENTRICLE RV appears normal in size and function. Elevated right heart pressures with an RVSP of 31 mmHg. ATRIA The left atrium size is normal. AORTIC VALVE Trileaflet AV appears mildly sclerotic with mild stenosis. SIOBHAN: 1.72 cmsq; Pkv:289 cm/sec; Gradients: 33/19 mmHG. Moderate insufficiency by color and spectral flow Doppler. MITRAL VALVE Mild MV annular calcification without stenosis. Trace regurgitation by color and spectral flow Doppler. TRICUSPID VALVE TV appears structurally normal with trace regurgitation by color and spectral flow Doppler. PULMONIC VALVE Normal PV without stenosis, physiologic insufficiency by color and spectral flow Doppler. GREAT VESSELS The aortic root is normal in size. PERICARDIUM Normal pericardium. No effusion. Other Information Study Quality: Adequate Conclusion Normal LV size and function. Mild concentric hypertrophy. LVEF is 65-70%. RV appears normal in size and function. Elevated right heart pressures with an RVSP of 31 mmHg. The left atrium size is normal. Trileaflet AV appears mildly sclerotic with mild stenosis. SIOBHAN: 1.72 cmsq; Pkv:289 cm/sec; Gradients: 33/19 mmHG. Moderate insufficiency by color and spectral flow Doppler. Mild MV annular calcification without stenosis. Trace regurgitation by color and spectral flow Doppler. TV appears structurally normal with trace regurgitation by color and spectral flow Doppler. Normal pericardium. No effusion.
[2025-09-02] MEDS ORDERED: levetiracetam inj 2,000 MG in normal saline 100ml IV soln 100 ML IV SCH (20:00)
[2025-09-02 20:10] VITALS: RESP 16
[2025-09-02] MEDS ORDERED: non-formulary drug (Mirtazapine 1 TAB) PO SCH (21:00)
[2025-09-02 22:00] VITALS: BP 175/70; PULSE 79; RESP 14; TEMP 97.7; O2SAT 96
[2025-09-03] VITALS (8 sets, daily range): BP systolic 128–198; BP diastolic 56–82; PULSE 77–86; RESP 18–22; TEMP 97.6–99.3; O2SAT 94–98
[2025-09-03 05:55] LABS: MEAN PLATELET VOLUME 6.9 FL (7.4-10.4); RED CELL DISTRIBUTION WIDTH 14.3 % (11.5-14.5)
[2025-09-03 06:12] LABS: CHOL/HDL RATIO 2.0 (0.00-4.99); CREATININE 0.55 MG/DL (0.40-0.90); LDL CHOLESTEROL 80 MG/DL (50-100); TOTAL CARBON DIOXIDE 27.3 MMOL/L (24-32); eCRCL 94 ML/MIN; eGFR > 90 ML/MIN
--- NOTE | 2025-09-03 18:23 | PROCEDURE NOTE ---
Procedure Note Providers to CC ~ Description: [place] EEG Note # Demographics Type of EEG Read: - Continuous EEG - hook-up - video Patient Location: Inpatient First Name: Lulu Last Name: Mady Date of : 1960 Age: 65 Gender: Female Facility: [facility] Time of Initial Page (): 09/03/2025 14:02 First Contact with Site (): 09/03/2025 14:02 # EEG Interpretation Start Time of EEG Read (): 09/03/2025 14:55 Stop Time of EEG Read (): 09/03/2025 16:07 Duration: 1h 12m Technical Details: - The EEG electrodes were placed using the standard International 10-20 system of electrode placement. Video and an accessory EKG lead were used during the course of this study. - This study was recorded using the [employer] EEG software Indication: - seizure # Description Phases Captured: - awake Symmetry: symmetric Posterior Dominant Rhythm: - present, attenuates on eye opening 8-9 Hz Predominant Frequencies: - non-posterior dominant alpha (8-12 Hz) - continuous (>90%) Superimposed Frequencies: - theta (4-7 Hz) - abundant (50-89%) Amplitude: normal Reactivity: yes Variability: yes Continuity: continuous # Abnormalities Epileptiform Abnormalities: - NOT present Focal Slowing: no Seizure: - NOT present # Impression Impression: normal # Clinical Correlation Clinical Correlation: A normal EEG does not exclude nor support the diagnosis of epilepsy. # Logistics Telemedicine: remote EEG review: EEG reviewed remotely # Demographics First Name: Lulu Last Name: Mady Facility: [facility] BERNARDO BLACKWELL MD Sep 03, 2025 18:23
--- NOTE | 2025-09-03 18:40 | PROGRESS NOTE- Residence ---
Progress Note - Resident Providers to CC Resident Creating Document: DARYN AMES RES ~ Antibiotic Timeout Antibiotic Ordered?: No Subjective Patient seen and examined at the bedside. Patient still has slurred speech and confusion, still not back to her baseline. There is no more seizures reported since admission. Objective Vital Signs Date Time Temp Pulse Resp B/P (MAP) Pulse Ox O2 Delivery O2 Flow Rate FiO2 09/03/25 10:00 97.6 85 18 128/78 (95) 97 Room Air 09/03/25 08:00 0.0 Result Diagram: 09/03/25 0443 09/03/25 0443 Awake , alert, oriented in person and place, disoriented in time HEENT: Atraumatic, normocephalic, EOMI, anicteric sclera ; pink conjunctiva Neck: Trachea midline. Supple, full range of motion, no JVD Cardiac: Regular rhythm, regular rate with no murmurs all over the precordium. Respiratory: Equal breath sounds bilaterally, no tachypnea, no wheezing ,rub or rales, Chest wall is symmetric and without deformity. Gastrointestinal: Abdomen symmetric, non-distended, soft, non-tender, normal bowel sounds x4 quadrant, normoactive, no hepatosplenomegaly Musculoskeletal: No pedal edema Neurological: - Cranial nerve test: Cranial nerves 2-12 intact - Motor system: Normal Nutrition, decreased tone, Power 4/5 in bilateral lower extremities, no involuntary movements, no focal neurological symptoms - Sensory system: Intact - Reflex testing: Biceps, triceps and knee reflexes 2+ - Cerebellar: Normal Skin: Warm and dry Coagulation Studies Laboratory Tests Test 09/02/25 07:47 Prothrombin Time 10.5 SECONDS (9.0-12.0) INR International Normalized Ratio 1.0 INR Activated Partial Thromboplast Time 26 SECONDS (22-32) Coagulation Comments Plan Plan Assessment This is a 65-year-old male patient with a past medical history of epilepsy, mild dementia, hypertension who presented after a seizure episode and has not returned completely back to baseline 1. Acute generalized tonic-clonic seizure in a patient with established epilepsy Postictal encephalopathy possible Rule out acute CVA Hyponatremia - resolved Assessment - patient presents after a 6 minute witness seizure - medication adherence is uncertain - patient still has not returned to baseline - head CT and head/neck CTA: No acute findings - Na 126 at presentation, 136 today, no other electrolyte abnormalities - normal CXR, WBC and urinalysis - tele neurology consulted Plan - continue Keppra 1 g IV b.i.d. - ordered EEG 24 hours given persistent confusion - started on carbamazepine 400 mg b.i.d (home medication eslicarbazepine 1200mg PO HS not available) - possible MRI if EEG nondiagnostic and persistent confusion - neuro checks, fall and seizure precautions - continue aspirin atorvastatin for now 2. History of mild dementia - Continue amantadine Code Status: Full code DVT Prophylaxis: Heparin Gi Prophylaxis: None Nutrition: Regular diet PT: Pending Prognosis: Guarded Disposition: Continue medical treatment. Pending 24 hours EEG. Possible head MRI if EEG nondiagnostic. Resident MD attestation The above note has been reviewed and supervised by a senior resident PGY2/PGY3 Patient was seen, examined and discussed with the attending physician Date of Service: Sep 03, 2025 Billing Provider: ELVIA ORTIZ MD Common Visit Codes: 69991-[id number] INP/OBS CARE(HIGH) DARYN AMES, RES Sep 03, 2025 18:40 ELVIA ORTIZ MD Sep 04, 2025 08:21
[2025-09-03] MEDS ORDERED: carBAMazepine Ext. Release 200 MG TAB.ER.12H PO SCH (20:00)
[2025-09-03] MEDS: carBAMazepine Ext. Release 200 MG TAB.ER.12H PO SCH (20:12)
[2025-09-04 05:26] LABS: MEAN PLATELET VOLUME 6.6 FL (7.4-10.4); RED CELL DISTRIBUTION WIDTH 14.6 % (11.5-14.5)
[2025-09-04 05:40] LABS: CREATININE 0.74 MG/DL (0.40-0.90); TOTAL CARBON DIOXIDE 27.6 MMOL/L (24-32); eCRCL 70 ML/MIN; eGFR 79 ML/MIN
[2025-09-04 06:00] VITALS: BP 173/72; PULSE 72; RESP 16; TEMP 98.1; O2SAT 94
--- NOTE | 2025-09-04 06:16 | PROCEDURE NOTE ---
Procedure Note Providers to CC ~ Interpretation: [place] EEG Note # Demographics Type of EEG Read: - Continuous EEG - initial read - video Patient Location: Inpatient First Name: Lulu Last Name: Mady Date of : 1960 Age: 65 Gender: Female Facility: [facility] # EEG Interpretation Start Time of EEG Read (): 09/03/2025 14:02 Stop Time of EEG Read (): 09/04/2025 03:21 Duration: 13h 19m Technical Details: - The EEG electrodes were placed using the standard International 10-20 system of electrode placement. Video and an accessory EKG lead were used during the course of this study. - This study was recorded using the [employer] EEG software Indication: - seizure # Description Phases Captured: - awake Symmetry: symmetric Posterior Dominant Rhythm: - present, attenuates on eye opening 8-9 Hz Predominant Frequencies: - non-posterior dominant alpha (8-12 Hz) - continuous (>90%) Superimposed Frequencies: - theta (4-7 Hz) - abundant (50-89%) Amplitude: normal Reactivity: yes Variability: yes Continuity: continuous # Abnormalities Epileptiform Abnormalities: - present - sharp waves Rare right temporal sharps Focal Slowing: no Seizure: - NOT present Artifact: Not interpretable after 0300 # Impression Impression: abnormal Focal Sharp, Right (rare) # Clinical Correlation Clinical Correlation: Focal sharps may be evidence of an increased tendency for seizure arising from the right temporal region. Additional Comments: Unable to interpret after 0300 due to artifact. # Logistics Telemedicine: remote EEG review: EEG reviewed remotely # Demographics First Name: Lulu Last Name: Mady Facility: [facility] BERNARDO BLACKWELL MD Sep 04, 2025 06:16
[2025-09-04 08:00] VITALS: RESP 18; O2SAT 96
[2025-09-04 10:00] VITALS: BP 145/56; PULSE 84; RESP 18; TEMP 98.6; O2SAT 97
--- NOTE | 2025-09-04 13:39 | [facility] CONSULT REPORT ---
[facility] Procedure Note [facility] Procedure Note Consult [place] [facility] # Demographics Consult Type: Follow-Up Phone Call Patient Location: Inpatient First Name: Lulu Last Name: Mady Date of : 1960 Age: 65 Gender: Female Facility: [facility] Time of Initial Page (): 09/04/2025 13:29 First Contact with Site (): 09/04/2025 13:30 Phone Only Consult: Hx epilepsy. last seizure 6 months ago. Admitted two days ago for another seizure. found to have right sided facial droop transiently and some confusion. EEG showed epileptiform activity. Patient has resolved. to baseline. Phone Agreement: - phone consult deemed mutually sufficient for patient care # PMH-FH-SH Past Medical History: - seizure Medications: levetiracetam (Keppra) 750mg bid at home now 1g bid eslicarbazepime 1200mg qhs at home. # Assessment Impression: - Seizure Now resolved. increase home keppra to 1g bid. continue other home seizure medications. # Plan Other: - If patient has any neurological deterioration please call me back immediately - neurology referral as outpatient - I have discussed my recommendations with the referring provider Additional Recommendations: do not drive until cleared by local team # Logistics Attestation of consult completion: The patient is located at: [facility], [place]. I performed this phone consultation from my offsite office Total time spent in telemedicine encounter: I spent 5 minutes in reviewing clinical data and/or imaging, obtaining history, communicating with the onsite care team, and in preparation of this report. # Demographics First Name: Lulu Last Name: Mady Facility: [facility] Electronically signed at 09/04/2025 13:39 () by Ed Che MD Neuro Consult Order placed for: Yes CLARICE CHE MD Sep 04, 2025 13:39
--- NOTE | 2025-09-04 15:11 | PROCEDURE NOTE ---
Procedure Note Providers to CC ~ Description: [place] EEG Note # Demographics Type of EEG Read: - Continuous EEG - disconnected/end clip - video Patient Location: Inpatient First Name: Lulu Last Name: Mady Date of : 1960 Age: 65 Gender: Female Facility: [facility] # EEG Interpretation Start Time of EEG Read (): 09/04/2025 03:21 Stop Time of EEG Read ( Time): 09/04/2025 13:54 Duration: 10h 33m Technical Details: - The EEG electrodes were placed using the standard International 10-20 system of electrode placement. Video and an accessory EKG lead were used during the course of this study. - This study was recorded using the [employer] EEG software Indication: - seizure # Description Photic Stimulation: NOT Performed Hyperventilation: NOT performed Phases Captured: - awake Symmetry: symmetric Posterior Dominant Rhythm: - present, attenuates on eye opening 8-9 Hz Predominant Frequencies: - non-posterior dominant alpha (8-12 Hz) - continuous (>90%) Superimposed Frequencies: - theta (4-7 Hz) - abundant (50-89%) Amplitude: normal Reactivity: yes Variability: yes Continuity: continuous # Abnormalities Epileptiform Abnormalities: - present - sharp waves Rare right temporal sharps (rare) Focal Slowing: no Seizure: - NOT present Artifact: Not interpretable after 0300 # Impression Impression: abnormal Focal Sharp, Right (rare) # Clinical Correlation Clinical Correlation: Focal sharps may be evidence of an increased tendency for seizure arising from the right temporal region. # Logistics Telemedicine: remote EEG review: EEG reviewed remotely # Demographics First Name: Lulu Last Name: Mady Facility: [facility] BERNARDO BLACKWELL MD Sep 04, 2025 15:11
[2025-09-04] MEDS ORDERED: ESLI600T PO (15:16)
[2025-09-04] MEDS ORDERED: LEVE750T6 PO (15:16)
--- NOTE | 2025-09-04 18:18 | DISCHARGE SUMMARY-Residence ---
Discharge Summary Providers to Resident Creating Document: DARYN AMES RES ~ Discharge Summary Admission Diagnosis: SEIZURE, STROKE LIKE SYMPTOMS Hospital Course DATE OF ADMISSION: 09/02/2025 DATE OF DISCHARGE: 09/04/2025 Laboratory Tests Test 09/03/25 04:43 09/03/25 20:59 09/03/25 23:53 09/04/25 05:07 White Blood Count 5.5 X10'3 6.2 X10'3 Red Blood Count 4.55 X10'6 4.41 X10'6 Hemoglobin 13.5 g/dl 12.7 g/dl Hematocrit 38.8 % 37.9 % Mean Corpuscular Volume 85.3 FL 85.9 FL Mean Corpuscular Hemoglobin 29.7 PG 28.9 PG Mean Corpuscular Hemoglobin Concent 34.8 g/dL 33.6 g/dL Red Cell Distribution Width 14.3 % 14.6 % Platelet Count 339 X10'3 325 X10'3 Mean Platelet Volume 6.9 FL 6.6 FL Neutrophils (%) (Auto) 56.7 % 52.9 % Lymphocytes (%) (Auto) 26.9 % 27.1 % Monocytes (%) (Auto) 12.1 % 12.4 % Eosinophils (%) (Auto) 3.0 % 6.6 % Basophils (%) (Auto) 1.3 % 1.0 % Neutrophils # (Auto) 3.1 X10'3 3.3 X10'3 Lymphocytes # (Auto) 1.5 X10'3 1.7 X10'3 Monocytes # (Auto) 0.7 X10'3 0.8 X10'3 Eosinophils # (Auto) 0.2 X10'3 0.4 X10'3 Basophils # (Auto) 0.1 X10'3 0.1 X10'3 CBC Comment Sodium Level 136 MMOL/L 138 MMOL/L Potassium Level 3.8 MMOL/L 4.2 MMOL/L Chloride Level 103 MMOL/L 106 MMOL/L Carbon Dioxide Level 27.3 MMOL/L 27.6 MMOL/L Anion Gap 6 4 Blood Urea Nitrogen 4 MG/DL 9 MG/DL Creatinine 0.55 MG/DL 0.74 MG/DL Estimated GFR/1.73 m2 > 90 ML/MIN 79 ML/MIN BUN/Creatinine Ratio 7.3 12.2 Glucose Level 79 MG/DL 79 MG/DL Calcium Level 8.9 MG/DL 8.5 MG/DL Magnesium Level 2.2 MG/DL 2.0 MG/DL Total Bilirubin 0.5 MG/DL 0.2 MG/DL Aspartate Amino Transf (AST/SGOT) 14 U/L 10 U/L Alanine Aminotransferase (ALT/SGPT) 16 U/L 13 U/L Alkaline Phosphatase 122 IU/L 112 IU/L Total Protein 6.9 G/DL 6.3 G/DL Albumin 3.5 G/DL 3.0 G/DL Globulin 3.4 G/DL 3.3 G/DL Albumin/Globulin Ratio 1.0 0.9 Triglycerides Level 42 MG/DL Cholesterol Level 169 MG/DL LDL Cholesterol 80 MG/DL HDL Cholesterol 83 MG/DL Cholesterol/HDL Ratio 2.0 Chemistry Comments Carbamazepine (Tegretol) Level < 0.5 UG/ML Glucometer 105 mg/dl Discharge Diagnosis\\Comment: 1. Acute generalized tonic-clonic seizure in a patient with established epilepsy Postictal encephalopathy Acute metabolic encephalopathy secondary to hyponatremia unable to exclude Ruled out acute CVA 2. History of mild dementia Operations\\Procedures: None Consultants: Neurology Complications: None Condition on DC: Stable New Medications: Eslicarbazepine Acetate (Aptiom) 600 Mg Tablet 2 TAB PO HS for 30 Days, #60 TAB 0 Refills Levetiracetam (Keppra) 750 Mg Tablet 2 TAB PO Q12H for 30 Days, #120 TAB 0 Refills Continued Medications: Amantadine Hcl (Amantadine) 100 Mg Capsule 1 CAP PO TID Amitriptyline HCl (Amitriptyline HCl) 75 Mg Tablet 1 TAB PO HS Eslicarbazepine Acetate (Aptiom) 600 Mg Tablet 2 TAB PO HS for 30 Days, #30 TAB 0 Refills NS Levetiracetam (Levetiracetam) 750 Mg Tablet 2 TAB PO BID Mirtazapine (Mirtazapine) 30 Mg Tablet 1 TAB PO HS Zolpidem Tartrate (Ambien) 5 Mg Tablet 1 TAB PO HSPRN PRN for sleep for 30 Days, #30 TAB 0 Refills NS Discharge Summary: History of present illness The patient was admitted with the following HPI: "This is a 65-year-old female with a history of epilepsy, dementia, hypertension who was brought to the ER by EMS after a witnessed seizure episode by family members that lasted about 6 minutes. Patient is a poor historian due to dementia with baseline confusion, slurred speech. Most of the history was obtained from ER physician and EMS notes. Per EMS patient's family reported patient's eyes rolling back and going unresponsive and upon wakening patient had slurred speech and difficulty in formulating her words, right side facial droop per family. Her tongue appears swollen. Patient repeatedly tells me that she is unable to think clearly and unable to answer my questions. She is awake, alert but not oriented to time carole ce or person. However patient has no focal weakness and initial CT of the head did not show any acute intracranial abnormalities. " Hospital course This is a 65-year-old female patient with a past medical history of epilepsy who presented in the ER after seizure episodes associated with right facial droop. CT head and head/neck CTA did not show any acute changes. The patient did not have any new seizures after admission but remained confused and disoriented. Tele neurology was consulted and 24h EEG was done, negative for seizure but showing epileptiform activity. Patient was treated with IV Keppra and carbamazepine. Her sodium was 126 at presentation and came back to normal after IV hydration with normal saline. Today the patient is back to her baseline, denies headache, nausea or vomiting, tolerating oral diet. Tele neurologist was consulted again at discharge and recommended to continue home medication and to follow-up with neurology outpatient for medication adjustment. She is stable to be discharged home. Head CT No acute intracranial abnormality. Moderate generalized volume loss with chronic small vessel ischemic change. Head/neck CTA No evidence of acute intracranial hemorrhage, mass effect or hydrocephalus. Atrophy and chronic small-vessel ischemic changes. No evidence of hemodynamically significant intracranial stenosis, proximal occlusion or aneurysm. Chest x-ray No radiographic evidence of acute cardiopulmonary process. Echocardiogram Normal LV size and function. Mild concentric hypertrophy. LVEF is 65-70%. RV appears normal in size and function. Elevated right heart pressures with an RVSP of 31 mmHg. The left atrium size is normal. Trileaflet AV appears moderately sclerotic with moderate stenosis. SIOBHAN: 1.31 cmsq; Pkv: 300 cm/sec; Gradients: 37/21 mmHG. Moderate insufficiency by color and spectral flow Doppler. Mild MV annular calcification without stenosis. Trace regurgitation by color and spectral flow Doppler. TV appears structurally normal with trace regurgitation by color and spectral f low Doppler. Normal pericardium. No effusion. Discharge physical exam Awake , alert, oriented in person and place, disoriented in time HEENT: Atraumatic, normocephalic, EOMI, anicteric sclera ; pink conjunctiva Neck: Trachea midline. Supple, full range of motion, no JVD Cardiac: Regular rhythm, regular rate with no murmurs all over the precordium. Respiratory: Equal breath sounds bilaterally, no tachypnea, no wheezing ,rub or rales, Chest wall is symmetric and without deformity. Gastrointestinal: Abdomen symmetric, non-distended, soft, non-tender, normal bowel sounds x4 quadrant, normoactive, no hepatosplenomegaly Musculoskeletal: No pedal edema Neurological: - Cranial nerve test: Cranial nerves 2-12 intact - Motor system: Normal Nutrition, decreased tone, Power 4/5 in bilateral lower extremities, no involuntary movements, no focal neurological symptoms - Sensory system: Intact - Reflex testing: Biceps, triceps and knee reflexes 2+ - Cerebellar: Normal Skin: Warm and dry Discharge medications See below Discharge instructions Follow up with primary care physician in 1-2 weeks Follow up with neurologist outpatient for medication adjustment Continue levetiracetam 1500 mg twice a day and eslicarbazepine 1200mg at bedtime Continue other home medication Come back in case of new seizures, motor or sensory loss, chest pain with shortness of breaths or any concerning symptoms *Problems/Diagnosis: (1) Seizures Status: Acute (2) Hyponatremia Status: Resolved (3) Encephalopathy acute Status: Resolved (4) Post-ictal state Status: Resolved (5) Epilepsy Status: Acute (6) Altered mental status Status: Resolved Total Time Spent on D/C: > 30 Minutes Date of Service: Sep 04, 2025 Billing Provider: ELVIA ORTIZ MD Common Visit Codes: 04229-ODH/OBS DISCH DAY >30min Problem Qualifiers (1) Epilepsy: Epilepsy type: unspecified Intractability: not intractable Status epilepticus: without status epilepticus Qualified Codes: G40.909 - Epilepsy, unspecified, not intractable, without status epilepticus (2) Altered mental status: Altered mental status type: disorientation Qualified Codes: R41.0 - Disorientation, unspecified DARYN AMES, RES Sep 04, 2025 18:18 ELVIA ORTIZ MD Sep 05, 2025 07:23
== END 2025-09-04 16:36 | disposition home or self-care (01) | DRG 100 ==
LOC: ER 21:35 → ED HOLD 09-02 03:00 → SUR 3N 09-02 07:55
PROVIDERS: ADMIT Internal Medicine Critical Care Medicine; ATTEND Internal Medicine
PROC: B3251ZZ Computerized Tomography (CT Scan) of Bilateral Common Carotid Arteries using Low Osmolar Contrast (ICD-10-PCS; 2025-09-02)
PROC: B32G1ZZ Computerized Tomography (CT Scan) of Bilateral Vertebral Arteries using Low Osmolar Contrast (ICD-10-PCS; 2025-09-02)
PROC: B32R1ZZ Computerized Tomography (CT Scan) of Intracranial Arteries using Low Osmolar Contrast (ICD-10-PCS; 2025-09-02)
PROC: B3281ZZ Computerized Tomography (CT Scan) of Bilateral Internal Carotid Arteries using Low Osmolar Contrast (ICD-10-PCS; 2025-09-02)
PROC: 4A00X4Z Measurement of Central Nervous Electrical Activity, External Approach (ICD-10-PCS; principal; 2025-09-03)
DX: G40.409 Other generalized epilepsy and epileptic syndromes, not intractable, without status epilepticus (principal); G93.41 Metabolic encephalopathy; E11.9 Type 2 diabetes mellitus without complications; I10 Essential (primary) hypertension; F32.A Depression, unspecified; F03.A0 Unspecified dementia, mild, without behavioral disturbance, psychotic disturbance, mood disturbance, and anxiety; E87.1 Hypo-osmolality and hyponatremia; F41.9 Anxiety disorder, unspecified; E78.5 Hyperlipidemia, unspecified; Z88.8 Allergy status to other drugs, medicaments and biological substances; Z79.899 Other long term (current) drug therapy
CPT/HCPCS: 36415; 70450; 70496; 71045; 80048; 80053; 80061; 80156; 80305; 81003; 82140; 82948; 83036; 83605; 83735; 83880; 84145; 84484; 85025; 85610; 85730; 87040; 92508; 92616; 93306; 95720; 99285; G0378; J1644; J1953; J7030; Q9967